=== PATIENT | female | born 1950 | race Caucasian/White ===

== ENCOUNTER 2017-06-29 06:43 | Emergency (ER) | payer MEDICARE, OTHER ==
--- NOTE | 2017-06-29 07:53 | RAD ---
RIGHT HIP 2 VIEWS: Date: 06/29/17 HISTORY: 67-year-old male with history of right hip pain for 2 weeks. FINDINGS: Mild degenerative changes right hip joint. No fracture or dislocation. Minimal vascular calcification s. IMPRESSION: No fracture or dislocation. Mild degenerative change. POS: [facility]
[2017-06-29 08:48] LABS: Bilirubin Negative (Negative); Blood, Urine Negative (Negative); Clarity CLOUDY (Clear); Glucose, Urine (Dipstick) Negative (Negative); Leukocyte Negative (Negative); Nitrite Negative (Negative); Protein, Urine (Dipstick) 100 mg/dL (Neg-Trace); Specific Gravity, Urine 1.014 (1.002-1.036); Urobilinogen 0.2 mg/dL (0.2-1.0)
[2017-06-29 08:50] LABS: Bacteria/HPF 1+ HPF (None Seen); Hyaline Casts/LPF 0-3 HYALINE CAST LPF (0-3 Hyaline); WBC/HPF 0-3 HPF (0-3)
[2017-06-29 09:15] LABS: #Basophils 0.2 thou/uL (0.0-0.2); #Eosinphils 0.3 thou/uL (0.0-0.7); #Lymphocytes 2.9 thou/uL (1.20-3.40); #Monocytes 0.7 thou/uL (0.11-0.59); #Neutrophils 8.1 thou/uL (1.40-6.50); %Basophils 1.7 % (0.0-1.0); %Eosinophils 2.4 % (0.0-10.0); %Lymphocytes 23.4 % (21.0-51.0); %Monocytes 5.7 % (0.0-10.0); %Neutrophils 66.7 % (42.0-75.0); Hemoglobin 13.5 g/dL (14.0-18.0); Mean Corpuscular HGB CONC 33.1 g/dL (32.0-36.0); Mean Corpuscular Hemoglobin 30.7 pg (27.0-31.0); Mean Platelet Volume 7.9 fL (7.4-10.4); Platelet Count 342 thou/uL (130-400); RBC Distribution Width 13.8 % (11.5-14.5); Red Blood Cell (RBC) Count 4.39 mill/uL (4.70-6.10); White Blood Cell (WBC) Count 12.2 thou/uL (4.8-10.8)
[2017-06-29] MEDS ORDERED: hydrALAZINE 20 MG/ML VIAL ONE ×2 (09:32→13:50)
[2017-06-29] MEDS ORDERED: Fentanyl 100 MCG/2 ML VIAL ONE (09:32)
[2017-06-29 09:36] LABS: ALT (SGPT) 13 U/L (8-55); AST (SGOT) 15 U/L (5-34); Albumin 4.3 g/dL (3.4-4.8); Alkaline Phosphatase 92 U/L (40-150); Anion Gap 17 mmol/L (10-20); BUN (Urea Nitrogen) 14 mg/dL (8.4-25.7); Bilirubin, Total 0.3 mg/dL (0.2-1.2); Calc. Creatinine Clearance 0 mL/min (70-130); Calcium 9.9 mg/dL (7.8-10.44); Carbon Dioxide 21 mmol/L (23-31); Chloride 100 mmol/L (98-107); Estimated GFR-MDRD Greater than 90; Glucose 150 mg/dL (80-115); Potassium 3.7 mmol/L (3.5-5.1); Protein, Total 8.3 g/dL (5.8-8.1); Sodium 134 mmol/L (136-145)
--- NOTE | 2017-06-29 10:40 | CT ---
CT ABDOMEN AND PELVIS WITH CONTRAST: Date: 06/29/17 HISTORY: Right-sided abdominal pain and hip pain. COMPARISON: None. FINDINGS: Lung bases are clear. No pericardial effusion. Hepatic steatosis is present. Gallbladder is normal, as well as the adrenal glands. There is a periph eral wedge-shaped area of hypodensity within the spleen, series 2, image 16 and 17. There is extensiv e atherosclerotic plaque of the splenic artery with multifocal severe narrowing. There is occlusion o f the superior mesenteric artery origin for a length of approximately 2.0 cm. There is extensive athe rosclerotic plaque of the superior mesenteric artery. Celiac artery is patent. There is extensive atherosclerotic plaque of the origin in both renal arteries, although there is marlee quate renal enhancement. No evidence of pyelonephritis. There is extensive atherosclerotic plaque of the aorta with multiple ulcerated plaques. 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 The infrarenal aorta measures up to 4.2 c m at this area of aneurysm. Extensive atherosclerotic calcific thrombus along the periphery of the in frarenal aorta. There is extensive atherosclerotic plaque of the iliac arteries with complete occlusi on of the left common iliac artery and external iliac artery. Left lower extremity is fed primarily b y the inferior epigastric artery and deep circumflex iliac artery. There is no free intraperitoneal gas or fluid. Normal proximal small bowel rotation. Appendix is not definitively seen, although there are no secondary signs of acute appendicitis. 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 No lum bar spine compression fracture. IMPRESSION: 1. Severe atherosclerotic disease of the aorta, as well as mesenteric vessels and iliac vessels. The re is complete occlusion of the left common iliac artery and external iliac artery with the left leg being fed primarily by the inferior epigastric and deep circumflex iliac arteries. 2. 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 Patient would benefit from a conventional angiogram. Mesenteric ischemia is likely , although there are no signs on the CT examination to suggest acute ischemic change. 3. Extensive atherosclerotic plaque of the aorta with multiple ulcerative plaques. 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 Nonemergent car diovascular surgical consultation is recommended. 4. No evidence of pyelonephritis. No renal calculi. 5. Hepatic steatosis. POS: [facility]
[2017-06-29 10:55] LABS: INR-International Normal Ratio 0.9; Prothrombin Time 12.3 SEC (12.0-14.7)
[2017-06-29] MEDS ORDERED: HYDROcodone/Acetaminophen 5/325 mg Tablet ONE (13:50)
[2017-06-29] MEDS ORDERED: ISOVUE-370 76%-LOCM 1 ML ONE (14:25)
== END 2017-06-29 14:13 | disposition home or self-care (01) ==
LOC: EDSEX 06:43 → ERS 06:43
DX: M87.9 Osteonecrosis, unspecified (principal); I71.9 Aortic aneurysm of unspecified site, without rupture; I73.9 Peripheral vascular disease, unspecified; I10 Essential (primary) hypertension; Z79.899 Other long term (current) drug therapy
CPT/HCPCS: 36415; 74177; 80053; 81003; 81015; 82274; 83605; 85025; 85610; 85652; 86140; 96374; 96375; 96376; J0360; J3010

== ENCOUNTER 2017-07-27 09:55 | Outpatient (CLI) | payer MEDICARE, OTHER ==
[~2017-07-27 09:55] MED LIST: ISOVUE-370 76%-LOCM 1 ML ONE
== END 2017-07-27 09:56 | disposition home or self-care (01) ==
LOC: BICCT 09:55
PROVIDERS: ATTEND Thoracic Surgery (Cardiothoracic Vascular Surgery)
DX: I65.23 Occlusion and stenosis of bilateral carotid arteries (principal); I77.1 Stricture of artery
CPT/HCPCS: 70498

== ENCOUNTER 2017-09-01 10:21 | Inpatient (IN) | payer MEDICARE, OTHER ==
[2017-09-01 15:25] VITALS: BMI 30.4
[2017-09-02] MEDS ORDERED: Fentanyl 250 MCG/5 ML VIAL ONE (10:43)
[2017-09-02] MEDS ORDERED: Nitroglycerin 50 MG/250 ML BOT 250 ML ONE (10:43)
[2017-09-02] MEDS ORDERED: hydrALAZINE 20 MG/ML VIAL ONE (10:43)
[2017-09-02] MEDS ORDERED: Phenylephrine HCL 10 MG/ML VIAL ONE (10:43)
[2017-09-02] MEDS ORDERED: CEFAZOLIN/Water 2 GM/20 ML SYRINGE ONE (11:00)
[2017-09-02] MEDS ORDERED: Bupivacaine/Epinephrine 0.25% 30 ML VIAL ONE (11:12)
[2017-09-02] MEDS ORDERED: Milrinone 10 MG/10 ML VIAL ONE ×2 (11:12→11:13)
[2017-09-02] MEDS ORDERED: Heparin 5,000 UNITS/ML VIAL ONE (11:12)
[2017-09-02] MEDS ORDERED: Protamine Sulfate 50 MG/5 ML VIAL ONE (12:57)
--- NOTE | 2017-09-02 13:31 | OP ---
DATE OF PROCEDURE: 09/02/2017 PREOPERATIVE DIAGNOSIS: Critical right carotid stenosis. POSTOPERATIVE DIAGNOSIS: Critical right carotid stenosis. PROCEDURE: Right carotid endarterectomy with bovine patch angioplasty. SURGEON: Dr. Tavo Reyes ANESTHESIA: General. ESTIMATED BLOOD LOSS: Less than 100. PROCEDURE IN DETAIL: After adequate anesthesia had been obtained, the patient's right neck was prepp ed and draped after ultrasound guided localization of the carotid bulb. Incision was made. Platysma divided, sternocleidomastoid muscle rotated laterally. Facial vein was ligated and divided. Hypogl ossal nerve was identified and avoided. Common internal and external carotid arteries were mobilized , loop was placed and the patient was given 7500 units of heparin. Clamps were applied, arteriotomy performed through a critically stenotic vessel in which the lumen was not fully identified, but the p laque was very soft and atheromatous plaque. A 12-Beninese shunt was placed with very poor backbleedin g. Following this, endarterectomy was performed. This was particularly atheromatous plaque and did not fill easily from the media adventitia as is typical of the endarterectomy specimen. There was 1 area where the plaque burroughed through the wall posteriorly. The area was thoroughly irrigated mul tiple times. The posterior penetrating ulcer was isolated from the channel with a running double lay er of 7-0 Prolene suture. Following this, a bovine patch was used to close the arteriotomy. Prior t o completing the suture line, the shunt was removed, vessels back flushed, forward flushed and furthe r irrigation was carried out. Flow was then restored up the external carotid artery. Following this , the internal carotid artery flow was restored and heparin was partially reversed with protamine. W ound was irrigated after obtaining good hemostasis, and closed in layers and the patient is to be ade en to the ICU in guarded condition.
[2017-09-02] MEDS ORDERED: Promethazine HCl 25 MG/ML VIAL ONE (13:49)
[2017-09-02] MEDS ORDERED: Ondansetron HCl/PF 4 MG/2 ML Vial IVP PRN ×2 (13:51→16:55)
[2017-09-02] MEDS ORDERED: Promethazine HCl 25 MG/ML VIAL IM PRN ×2 (13:51→16:55)
[2017-09-02] MEDS ORDERED: Promethazine HCl 25 MG/ML VIAL SLOW IVP PRN (13:51)
[2017-09-02] MEDS ORDERED: Ondansetron HCl/PF 4 MG/2 ML Vial ONE (14:40)
[2017-09-02] MEDS ORDERED: DOPamine 400 MG/D5W 250 ML 250 ML ONE (15:01)
[2017-09-02] MEDS ORDERED: Norepinephrine 4 MG/4 ML VIAL ONE (16:00)
[2017-09-02] MEDS ORDERED: Norepinephrine 8 MG/250 ML BAG IVPB PRN (16:07)
[2017-09-02] MEDS ORDERED: Aspirin 325 MG TAB PO SCH (16:15)
[2017-09-02] MEDS ORDERED: Phenylephrine 10 MG/NS 250 ML 250 ML IVPB SCH (16:30)
[2017-09-02] MEDS ORDERED: PROPOFOL 200 MG/20 ML VIAL ONE (16:35)
[2017-09-02] MEDS ORDERED: Heparin 10,000 UNITS/ 10 ML VIAL ONE (16:35)
[2017-09-02] MEDS ORDERED: Dexamethasone 20 MG/5 ML VIAL ONE (16:35)
[2017-09-02] MEDS ORDERED: PHENYLEPHRINE-NS 100 MCG/ML 10 ML SYRINGE ONE (16:35)
[2017-09-02] MEDS ORDERED: Nitroglycerin 0.4 MG TAB (25 Tab Bottle) ONE (16:35)
[2017-09-02] MEDS ORDERED: Glycopyrrolate 0.2 MG/ML 5 ML SYRINGE ONE (16:35)
[2017-09-02] MEDS ORDERED: Lidocaine 1% PF 5 ML VIAL ONE (16:35)
[2017-09-02] MEDS ORDERED: Nitroglycerin 2% Ointment 1 INCH/1 GM Packet ONE ×2 (16:49→16:51)
[2017-09-02] MEDS ORDERED: Mag-Al 1200 mg/1200 mg/30 ML UDCUP PO PRN (16:55)
[2017-09-02] MEDS ORDERED: Sodium Chloride 0.9% 1,000 ML IV SCH (16:55)
[2017-09-02] MEDS ORDERED: niCARdipine HCl 25 MG in Sodium Chloride 0.9% 250 ML 240 ML IVPB PRN (16:55)
[2017-09-02] MEDS ORDERED: Docusate 100 MG CAP PO PRN (16:55)
[2017-09-02] MEDS ORDERED: DOPamine 400 MG/D5W 250 ML 250 ML IVPB PRN (16:55)
[2017-09-02] MEDS ORDERED: Fentanyl 100 MCG/2 ML VIAL SLOW IVP PRN ×2 (16:55)
[2017-09-02] MEDS ORDERED: hydrALAZINE 20 MG/ML VIAL SLOW IVP PRN (16:55)
[2017-09-02] MEDS ORDERED: Ibuprofen 800 MG TAB PO PRN (17:44)
[2017-09-02] MEDS: Ketorolac Tromethamine 30 MG/ML VIAL IVP SCH (17:52)
[2017-09-02] MEDS: CEFAZOLIN/Water 2 GM/20 ML SYRINGE SLOW IVP SCH (20:28)
[2017-09-02] MEDS: Famotidine 20 MG TAB PO SCH (20:29)
[2017-09-02] MEDS: Acetaminophen 325 MG TAB PO PRN (20:29)
[2017-09-02] MEDS ORDERED: Simvastatin 40 MG TAB PO SCH (21:00)
[2017-09-02] MEDS ORDERED: Losartan 25 MG TAB PO SCH (21:00)
[2017-09-03] MEDS: Ketorolac Tromethamine 30 MG/ML VIAL IVP SCH ×2 (00:21→06:11)
[2017-09-03] MEDS: Acetaminophen 325 MG TAB PO PRN (04:15)
[2017-09-03] MEDS: CEFAZOLIN/Water 2 GM/20 ML SYRINGE SLOW IVP SCH (04:15)
--- NOTE | 2017-09-03 07:01 | EKG ---
Test Reason : PREOP Blood Pressure : / mmHG Vent. Rate : 065 BPM Atrial Rate : 065 BPM P-R Int : 166 ms QRS Dur : 132 ms QT Int : 458 ms P-R-T Axes : 079 021 040 degrees QTc Int : 476 ms Sinus rhythm with Premature atrial complexes Right bundle branch block Abnormal ECG When compared with ECG of 10-MAR-2016 09:44, Premature atrial complexes are now Present Right bundle branch block is now Present Confirmed by CIELO GALVAN ([id number]) on 09/03/2017 7:01:17 AM Referred By: ANITA Confirmed By:CIELO GALVAN
--- NOTE | 2017-09-03 07:04 | DIS ---
DATE OF ADMISSION: 09/02/2017 DATE OF DISCHARGE: 09/03/2017 HOSPITAL COURSE: The patient was admitted on 09/02/2017, underwent a right carotid endarterectomy. Her postoperative course was notable only for some chest discomfort in the recovery room while receiv ing dopamine. She had resolution of this pain when the dopamine was stopped. Neurologically, she di d well and will be discharged on 09/03/2017 to resume her home medications. Discharge and follow up instructions have been given.
[2017-09-03 07:06] VITALS: TEMP 98.6
[2017-09-03] MEDS: Famotidine 20 MG TAB PO SCH (07:38)
[2017-09-03 07:39] VITALS: BP 138/78
[2017-09-03] MEDS ORDERED: Amlodipine 5 MG TAB PO SCH (09:00)
[2017-09-03] MEDS ORDERED: Aspirin 325 mg Enteric Coated Tablet PO SCH (09:00)
[2017-09-03] MEDS ORDERED: Hydrochlorothiazide 25 MG TAB PO SCH (09:00)
--- NOTE | 2017-09-04 08:59 | EKG ---
Test Reason : Blood Pressure : / mmHG Vent. Rate : 095 BPM Atrial Rate : 095 BPM P-R Int : 184 ms QRS Dur : 138 ms QT Int : 396 ms P-R-T Axes : 074 064 007 degrees QTc Int : 497 ms Poor data quality, interpretation may be adversely affected Normal sinus rhythm Right bundle branch block Abnormal ECG When compared with ECG of 02-SEP-2017 10:30, Premature atrial complexes are no longer Present ST now depressed in Anterior leads Inverted T waves have replaced nonspecific T wave abnormality in Inferior leads Inverted T waves have replaced nonspecific T wave abnormality in Anterior leads Confirmed by CIELO GALVAN ([id number]) on 09/04/2017 8:59:13 AM Referred By: ANITA Confirmed By:CIELO GALVAN
[2017-09-07] MEDS ORDERED: Ibuprofen 800 MG TAB PO PRN (23:59)
== END 2017-09-03 08:03 | disposition home or self-care (01) | DRG 39 ==
LOC: EDSTATUS 15:00 → SURG A 09-02 09:43 → CCU 09-02 16:59
PROVIDERS: ADMIT Thoracic Surgery (Cardiothoracic Vascular Surgery); ATTEND Thoracic Surgery (Cardiothoracic Vascular Surgery)
PROC: 03CK0ZZ Extirpation of Matter from Right Internal Carotid Artery, Open Approach (ICD-10-PCS; principal; 2017-09-02)
PROC: 03UK0KZ Supplement Right Internal Carotid Artery with Nonautologous Tissue Substitute, Open Approach (ICD-10-PCS; 2017-09-02)
DX: I65.23 Occlusion and stenosis of bilateral carotid arteries (principal); I10 Essential (primary) hypertension; R07.89 Other chest pain; T44.995A Adverse effect of other drug primarily affecting the autonomic nervous system, initial encounter; I70.213 Atherosclerosis of native arteries of extremities with intermittent claudication, bilateral legs; I71.4 Abdominal aortic aneurysm, without rupture; Z87.891 Personal history of nicotine dependence
CPT/HCPCS: 80048; 85027; 93005; 93010; 94640; J0360; J1100; J1265; J1642; J1644; J1885; J2001; J2260; J2370; J2405; J2550; J2704; J2720; J3010; J7620

== ENCOUNTER 2017-09-01 14:54 | Outpatient (CLI) | payer MEDICARE, OTHER ==
[2017-09-01 16:26] LABS: Hemoglobin 12.9 g/dL (12.0-16.0); Mean Corpuscular HGB CONC 33.9 g/dL (32.0-36.0); Mean Corpuscular Hemoglobin 31.8 pg (27.0-31.0); Mean Corpuscular Volume 93.9 fl (81.0-99.0); Mean Platelet Volume 8.3 fL (7.4-10.4); Platelet Count 318 thou/uL (130-400); Red Blood Cell (RBC) Count 4.04 mill/uL (4.20-5.40); White Blood Cell (WBC) Count 11.7 thou/uL (4.8-10.8)
[2017-09-01 16:48] LABS: Anion Gap 16 mmol/L (10-20); BUN (Urea Nitrogen) 17 mg/dL (9.8-20.1); Calc. Creatinine Clearance 0 mL/min (70-130); Calcium 10.1 mg/dL (7.8-10.44); Carbon Dioxide 25 mmol/L (23-31); Chloride 100 mmol/L (98-107); Estimated GFR-MDRD 58; Glucose 107 mg/dL (80-115); Potassium 4.1 mmol/L (3.5-5.1); Sodium 137 mmol/L (136-145)
== END 2017-09-01 14:55 | disposition home or self-care (01) ==
LOC: LABBT 14:54
PROVIDERS: ATTEND Thoracic Surgery (Cardiothoracic Vascular Surgery)
DX: Z01.812 Encounter for preprocedural laboratory examination (principal); I65.29 Occlusion and stenosis of unspecified carotid artery
CPT/HCPCS: 80048; 85027

== ENCOUNTER 2021-12-02 10:44 | Outpatient (CLI) | payer MEDICARE ==
[~2021-12-02 10:44] MED LIST changes: -ISOVUE-370 76%-LOCM 1 ML ONE; +Iopamidol-370 76% 500 ML 1 ML ONE
== END 2021-12-02 10:45 | disposition home or self-care (01) ==
LOC: BICCT 10:44
PROVIDERS: ATTEND Thoracic Surgery (Cardiothoracic Vascular Surgery)
DX: I71.4 Abdominal aortic aneurysm, without rupture (principal); E11.51 Type 2 diabetes mellitus with diabetic peripheral angiopathy without gangrene; I70.213 Atherosclerosis of native arteries of extremities with intermittent claudication, bilateral legs; I65.23 Occlusion and stenosis of bilateral carotid arteries; I10 Essential (primary) hypertension; D73.5 Infarction of spleen; K55.069 Acute infarction of intestine, part and extent unspecified; I74.5 Embolism and thrombosis of iliac artery; M87.9 Osteonecrosis, unspecified
CPT/HCPCS: 75635; 82565; Q9967

== ENCOUNTER 2022-04-02 01:36 | Inpatient (IN) | payer MEDICARE ==
[2022-04-02] MEDS ORDERED: Aspirin Chewable 81 MG TAB ONE (02:10)
[2022-04-02] MEDS ORDERED: Nitroglycerin 0.4 MG TAB 1 EACH ONE (02:12)
[2022-04-02 02:15] LABS: #Eosinphils 0.1 thou/uL (0.0-0.7); #Lymphocytes 2.6 thou/uL (1.20-3.40); #Monocytes 0.7 thou/uL (0.11-0.59); #Neutrophils 9.4 thou/uL (1.40-6.50); %Basophils 0.2 % (0.0-1.0); %Eosinophils 0.6 % (0.0-10.0); %Lymphocytes 20.6 % (21.0-51.0); %Monocytes 5.4 % (0.0-10.0); %Neutrophils 73.2 % (42.0-75.0); Hemoglobin 8.1 g/dL (12.0-16.0); Mean Corpuscular HGB CONC 32.9 g/dL (32.0-36.0); Mean Corpuscular Hemoglobin 29.8 pg (27.0-31.0); Mean Corpuscular Volume 90.6 fl (78.0-98.0); Mean Platelet Volume 8.8 fL (7.4-10.4); Platelet Count 374 10x3/uL (130-400); RBC Distribution Width 15.1 % (11.5-14.5); Red Blood Cell (RBC) Count 2.72 mill/uL (4.20-5.40); White Blood Cell (WBC) Count 12.8 10x3/uL (4.8-10.8)
[2022-04-02] MEDS ORDERED: Enoxaparin Sodium 60 MG/0.6 ML SYRINGE ONE (02:21)
[2022-04-02 02:28] LABS: ALT (SGPT) 13 U/L (8-55); AST (SGOT) 20 U/L (5-34); Albumin 3.8 g/dL (3.4-4.8); Alkaline Phosphatase 104 U/L (40-110); Anion Gap 17 mmol/L (10-20); BUN (Urea Nitrogen) 22 mg/dL (9.8-20.1); Bilirubin, Total 0.4 mg/dL (0.2-1.2); Calc. Creatinine Clearance 0 mL/min (70-130); Carbon Dioxide 20 mmol/L (23-31); Chloride 98 mmol/L (98-107); Estimated GFR 51; Globulin 3.3 g/dL (2.4-3.5); Glucose 220 mg/dL (83-110); Potassium 4.9 mmol/L (3.5-5.1); Protein, Total 7.1 g/dL (5.8-8.1); Sodium 130 mmol/L (136-145)
[2022-04-02 02:43] LABS: Prothrombin Time 13.2 sec (12.0-14.7)
[2022-04-02 02:44] LABS: PTT 29.4 sec (22.9-36.1)
[2022-04-02 02:49] LABS: Lipase 78 U/L (8-78); Magnesium 2.1 mg/dL (1.6-2.6)
[2022-04-02 02:53] LABS: Bacteria/HPF None Seen HPF (None Seen); Bilirubin Negative (Negative); Blood, Urine 3+ (Negative); Clarity Turbid (Clear); Glucose, Urine (Dipstick) 300 mg/dL (Negative); Ketone, Urine Negative (Negative); Leukocyte 75 Leu/uL (Negative); Nitrite Negative (Negative); Protein, Urine (Dipstick) 70 mg/dL (Neg-Trace); RBC/HPF Greater than 50 HPF (0-3); Specific Gravity, Urine 1.018 (1.002-1.036); Squamous Epithelial None Seen HPF (0-3); Urobilinogen Normal mg/dL (Less than 2); WBC/HPF 21-50 HPF (0-3)
[2022-04-02] MEDS ORDERED: Furosemide 40 MG/4 ML VIAL ONE (03:40)
[2022-04-02 04:07] LABS: CKMB 5.2 ng/mL (0-6.6)
[2022-04-02] MEDS ORDERED: Morphine 4 MG/ML VIAL ONE (04:26)
[2022-04-02] MEDS ORDERED: Acetaminophen 650 MG Suppository PR PRN (04:58)
[2022-04-02] MEDS ORDERED: HumaLOG 300 UNITS/3 ML VIAL SC PRN (05:07)
[2022-04-02] MEDS ORDERED: Dextrose 50% Abboject 50 ML SYRINGE SLOW IVP PRN (05:07)
[2022-04-02] MEDS ORDERED: Dextrose 5% in Water 1,000 ML IV PRN (05:07)
[2022-04-02] MEDS ORDERED: Electrolyte Replacement Protocol 1 EACH FS PRN (05:15)
[2022-04-02 05:23] LABS: Troponin I 0.718 ng/mL (< 0.028)
[2022-04-02] MEDS ORDERED: hydrALAZINE 20 MG/ML VIAL SLOW IVP PRN (06:10)
[2022-04-02 08:14] LABS: Iron 217 ug/dL (50-170); Iron Binding Capacity, Total 346 mcg/dL (265-497)
[2022-04-02 08:31] LABS: Troponin I 0.825 ng/mL (< 0.028)
[2022-04-02] MEDS ORDERED: Enoxaparin Sodium 40 MG/0.4 ML SYRINGE SC SCH (09:00)
[2022-04-02] MEDS ORDERED: Iopamidol 370 76% 100 ML VIAL ONE (10:01)
[2022-04-02] MEDS ORDERED: Aspirin 81 mg Enteric Coated Tablet PO SCH (10:15)
[2022-04-02] MEDS ORDERED: Clopidogrel Bisulfate 75 MG TAB PO SCH (11:30)
[2022-04-02] MEDS ORDERED: Tamsulosin HCl 0.4 MG CAP PO SCH (11:30)
[2022-04-02] MEDS ORDERED: glipiZIDE 10 MG TAB PO SCH (11:30)
[2022-04-02] MEDS: Furosemide 40 MG/4 ML VIAL SLOW IVP SCH (11:34)
[2022-04-02] MEDS: oxyCODONE/Acetaminophen 5 mg/325 mg Tablet PO PRN (11:35)
[2022-04-02] MEDS: tiZANidine HCl 4 MG TAB PO PRN (13:54)
[2022-04-02] MEDS: Gabapentin 300 MG CAP PO SCH ×2 (13:55→21:10)
[2022-04-02] MEDS: Propranolol 10 MG TAB PO SCH ×2 (13:55→21:10)
[2022-04-02] MEDS ORDERED: DOPamine 400 MG/D5W 250 ML 250 ML ONE (15:37)
[2022-04-02] MEDS ORDERED: Atropine Sulfate 1 mg/10 ml Syringe ONE ×2 (15:42→22:36)
[2022-04-02 15:58] LABS: Hemoglobin 6.3 g/dL (12.0-16.0); Mean Corpuscular HGB CONC 33.3 g/dL (32.0-36.0); Mean Corpuscular Volume 89.9 fl (78.0-98.0); Mean Platelet Volume 7.8 fL (7.4-10.4); Platelet Count 292 10x3/uL (130-400); RBC Distribution Width 14.7 % (11.5-14.5); Red Blood Cell (RBC) Count 2.09 mill/uL (4.20-5.40)
[2022-04-02] MEDS ORDERED: Sodium Chloride 0.9% 500 ML IV SCH (16:15)
[2022-04-02] MEDS ORDERED: DOPamine 400 MG/D5W 250 ML 250 ML IVPB SCH (16:15)
[2022-04-02 16:27] LABS: White Blood Cell (WBC) Count 10.9 10x3/uL (4.8-10.8)
[2022-04-02 16:28] LABS: Anisocytosis SLIGHT = 6-15 cells (100X) (0-5/hpf); Band 1 % (5-11); Eosinophils 1 % (0-10); Lymphocytes 20 % (21-51); MDiff Complete? YES; Monocytes 1 % (0-10); Neutrophil 77 % (42-75); Nucleated RBC 2 % (0); Platelet Morphology Comment Appears Adequate; Polychromasia MODERATE = 3-4 cells (100X) (0-2/hpf)
[2022-04-02] MEDS ORDERED: Furosemide 20 MG/2 ML VIAL SLOW IVP SCH ×2 (18:00→23:00)
[2022-04-02] MEDS ORDERED: Enoxaparin Sodium 60 MG/0.6 ML SYRINGE SC SCH ×3 (21:00)
[2022-04-02] MEDS: Sodium Chloride 1 GM TAB PO SCH (21:10)
[2022-04-02] MEDS: Pantoprazole 40 MG VIAL IVP SCH (21:10)
[2022-04-02] MEDS: Simvastatin 10 MG TAB PO SCH (21:11)
[2022-04-02] MEDS ORDERED: NOREPINEPHRINE 8 MG/250 ML-D5W 250 ML ONE (22:44)
[2022-04-02] MEDS ORDERED: NOREPINEPHRINE 8 MG/250 ML-D5W 250 ML IVPB SCH (22:45)
[2022-04-02] MEDS ORDERED: Atropine Sulfate 1 mg/10 ml Syringe IVP SCH (23:00)
[2022-04-02 23:14] LABS: Actual Bicarbonate (HCO3a) 24.3 mEq/L (22-28); CO2 Tension 38.1 mmHg (35.0-45.0); Calcium, Ionized (arterial) 1.16 mmol/L (1.12-1.30); Carboxyhemoglobin (COHb) 0.9 gm% (0.0-3.0); Hemoglobin (Hb) 10.8 g/dL (12.0-16.0); Potassium - ABG Lab 3.47 mmol/L (3.70-5.30); pH, Arterial 7.42 (7.35-7.45)
[2022-04-02 23:14] LABS: #Basophils 0.1 thou/uL (0.0-0.2); #Eosinphils 0.5 thou/uL (0.0-0.7); #Lymphocytes 2.8 thou/uL (1.20-3.40); #Monocytes 1.3 thou/uL (0.11-0.59); #Neutrophils 11.3 thou/uL (1.40-6.50); %Basophils 0.4 % (0.0-1.0); %Lymphocytes 17.6 % (21.0-51.0); %Monocytes 7.9 % (0.0-10.0); %Neutrophils 71.1 % (42.0-75.0); Hemoglobin 10.6 g/dL (12.0-16.0); Mean Corpuscular HGB CONC 33.7 g/dL (32.0-36.0); Mean Corpuscular Hemoglobin 29.8 pg (27.0-31.0); Mean Corpuscular Volume 88.6 fl (78.0-98.0); Mean Platelet Volume 8.1 fL (7.4-10.4); Platelet Count 387 10x3/uL (130-400); RBC Distribution Width 14.8 % (11.5-14.5); Red Blood Cell (RBC) Count 3.57 mill/uL (4.20-5.40); White Blood Cell (WBC) Count 15.9 10x3/uL (4.8-10.8)
[2022-04-02 23:21] LABS: Lactic Acid 1.6 mmol/L (0.5-2.2)
[2022-04-02 23:24] LABS: Anion Gap 15 mmol/L (10-20); BUN (Urea Nitrogen) 19 mg/dL (9.8-20.1); Calc. Creatinine Clearance 40 mL/min (70-130); Calcium 9.5 mg/dL (7.8-10.44); Carbon Dioxide 26 mmol/L (23-31); Chloride 98 mmol/L (98-107); Estimated GFR 43; Glucose 181 mg/dL (83-110); Potassium 3.6 mmol/L (3.5-5.1); Sodium 135 mmol/L (136-145)
[2022-04-02 23:28] LABS: O2 Tension (PaO2), arterial 51.9 mmHg (> 70.0); Puncture Site LRA
[2022-04-02 23:29] LABS: ALV-art Gradient 100.115 mmHg (0-20)
[2022-04-03] MEDS: cefTRIAXone\\ROCEPHIN 1 GM in Sodium Chloride 0.9% 100 ML IVPB SCH (00:10)
[2022-04-03] MEDS ORDERED: DOPamine 400 MG/D5W 250 ML 250 ML IVPB SCH (01:15)
[2022-04-03 05:05] LABS: #Basophils 0.1 thou/uL (0.0-0.2); #Eosinphils 0.4 thou/uL (0.0-0.7); #Lymphocytes 2.6 thou/uL (1.20-3.40); #Monocytes 0.9 thou/uL (0.11-0.59); #Neutrophils 9.4 thou/uL (1.40-6.50); %Basophils 0.6 % (0.0-1.0); %Eosinophils 3.2 % (0.0-10.0); %Lymphocytes 19.4 % (21.0-51.0); %Monocytes 6.5 % (0.0-10.0); %Neutrophils 70.3 % (42.0-75.0); Hemoglobin 11.5 g/dL (12.0-16.0); Mean Corpuscular HGB CONC 33.5 g/dL (32.0-36.0); Mean Corpuscular Hemoglobin 29.8 pg (27.0-31.0); Mean Corpuscular Volume 88.9 fl (78.0-98.0); Mean Platelet Volume 8.3 fL (7.4-10.4); Platelet Count 365 10x3/uL (130-400); RBC Distribution Width 14.2 % (11.5-14.5); Red Blood Cell (RBC) Count 3.87 mill/uL (4.20-5.40); White Blood Cell (WBC) Count 13.4 10x3/uL (4.8-10.8)
[2022-04-03 05:15] LABS: Anion Gap 14 mmol/L (10-20); BUN (Urea Nitrogen) 18 mg/dL (9.8-20.1); Calc. Creatinine Clearance 42 mL/min (70-130); Calcium 9.3 mg/dL (7.8-10.44); Carbon Dioxide 28 mmol/L (23-31); Chloride 98 mmol/L (98-107); Estimated GFR 47; Glucose 182 mg/dL (83-110); Potassium 3.4 mmol/L (3.5-5.1); Sodium 137 mmol/L (136-145)
[2022-04-03] MEDS: Potassium Chloride 20 MEQ in Premix Bag 1 BAG IVPB SCH ×2 (05:35→07:50)
[2022-04-03] MEDS: HumaLOG 300 UNITS/3 ML VIAL SC PRN ×2 (06:22→16:33)
[2022-04-03] MEDS: Ferrous Sulfate 325 MG TAB PO SCH (07:58)
[2022-04-03] MEDS: Aspirin 81 mg Enteric Coated Tablet PO SCH (08:03)
[2022-04-03] MEDS: oxyCODONE/Acetaminophen 5 mg/325 mg Tablet PO PRN ×2 (08:39→21:17)
[2022-04-03] MEDS: glipiZIDE 10 MG TAB PO SCH (08:40)
[2022-04-03] MEDS: Gabapentin 300 MG CAP PO SCH ×3 (08:40→21:12)
[2022-04-03] MEDS: Clopidogrel Bisulfate 75 MG TAB PO SCH (08:40)
[2022-04-03] MEDS: Sodium Chloride 1 GM TAB PO SCH ×2 (08:40→21:11)
[2022-04-03] MEDS: Tamsulosin HCl 0.4 MG CAP PO SCH (08:40)
[2022-04-03] MEDS: Propranolol 10 MG TAB PO SCH (08:41)
[2022-04-03] MEDS: Furosemide 40 MG/4 ML VIAL SLOW IVP SCH (08:41)
[2022-04-03] MEDS: Pantoprazole 40 MG VIAL IVP SCH (08:41)
[2022-04-03] MEDS ORDERED: Aspirin 81 mg Enteric Coated Tablet PO SCH (09:00)
[2022-04-03 12:23] LABS: Potassium 4.1 mmol/L (3.5-5.1)
[2022-04-03] MEDS: tiZANidine HCl 4 MG TAB PO PRN (13:34)
[2022-04-03 16:16] LABS: Hemoglobin 10.7 g/dL (12.0-16.0); Platelet Count 358 10x3/uL (130-400)
[2022-04-03] MEDS: Simvastatin 10 MG TAB PO SCH (21:12)
[2022-04-04] MEDS: cefTRIAXone\\ROCEPHIN 1 GM in Sodium Chloride 0.9% 100 ML IVPB SCH ×2 (00:16→23:11)
[2022-04-04] MEDS ORDERED: NOREPINEPHRINE 8 MG/250 ML-D5W 250 ML IVPB SCH (01:00)
[2022-04-04] MEDS: Amiodarone 450 MG, Admixture Fee 1 EACH in Dextrose 5% in Water 250 ML IVPB SCH ×2 (01:00→08:17)
[2022-04-04 01:17] LABS: ALT (SGPT) 12 U/L (8-55); AST (SGOT) 17 U/L (5-34); Albumin 3.3 g/dL (3.4-4.8); Alkaline Phosphatase 93 U/L (40-110); Anion Gap 13 mmol/L (10-20); BUN (Urea Nitrogen) 21 mg/dL (9.8-20.1); Bilirubin, Total 0.4 mg/dL (0.2-1.2); Calc. Creatinine Clearance 42 mL/min (70-130); Calcium 8.8 mg/dL (7.8-10.44); Carbon Dioxide 27 mmol/L (23-31); Chloride 99 mmol/L (98-107); Estimated GFR 46; Globulin 3.3 g/dL (2.4-3.5); Glucose 135 mg/dL (83-110); Magnesium 1.9 mg/dL (1.6-2.6); Potassium 3.8 mmol/L (3.5-5.1); Protein, Total 6.6 g/dL (5.8-8.1); Sodium 135 mmol/L (136-145)
[2022-04-04 01:18] LABS: #Basophils 0.1 thou/uL (0.0-0.2); #Eosinphils 0.5 thou/uL (0.0-0.7); #Lymphocytes 2.2 thou/uL (1.20-3.40); #Monocytes 0.6 thou/uL (0.11-0.59); #Neutrophils 9.7 thou/uL (1.40-6.50); %Basophils 0.4 % (0.0-1.0); %Eosinophils 3.8 % (0.0-10.0); %Lymphocytes 16.7 % (21.0-51.0); %Monocytes 4.2 % (0.0-10.0); %Neutrophils 74.8 % (42.0-75.0); Hemoglobin 10.7 g/dL (12.0-16.0); Mean Corpuscular HGB CONC 33.8 g/dL (32.0-36.0); Mean Corpuscular Hemoglobin 30.4 pg (27.0-31.0); Mean Corpuscular Volume 89.7 fl (78.0-98.0); Mean Platelet Volume 8.3 fL (7.4-10.4); Platelet Count 352 10x3/uL (130-400); Red Blood Cell (RBC) Count 3.53 mill/uL (4.20-5.40); White Blood Cell (WBC) Count 12.9 10x3/uL (4.8-10.8)
[2022-04-04 01:26] LABS: Troponin I 1.394 ng/mL (< 0.028)
[2022-04-04] MEDS ORDERED: Magnesium 2 GM/50 ML(in water) 2 GM in Premix Bag 1 BAG IVPB SCH (01:45)
[2022-04-04 04:38] LABS: #Eosinphils 0.6 thou/uL (0.0-0.7); #Lymphocytes 2.1 thou/uL (1.20-3.40); #Monocytes 0.6 thou/uL (0.11-0.59); #Neutrophils 15.5 thou/uL (1.40-6.50); %Basophils 0.2 % (0.0-1.0); %Eosinophils 3.2 % (0.0-10.0); %Lymphocytes 11.1 % (21.0-51.0); %Monocytes 3.3 % (0.0-10.0); %Neutrophils 82.2 % (42.0-75.0); Hemoglobin 11.4 g/dL (12.0-16.0); Mean Corpuscular HGB CONC 34.4 g/dL (32.0-36.0); Mean Platelet Volume 8.1 fL (7.4-10.4); Platelet Count 382 10x3/uL (130-400); RBC Distribution Width 14.7 % (11.5-14.5); Red Blood Cell (RBC) Count 3.67 mill/uL (4.20-5.40); White Blood Cell (WBC) Count 18.9 10x3/uL (4.8-10.8)
[2022-04-04 04:48] LABS: Phosphorus 2.9 mg/dL (2.3-4.7)
[2022-04-04 04:52] LABS: Anion Gap 15 mmol/L (10-20); BUN (Urea Nitrogen) 20 mg/dL (9.8-20.1); Calc. Creatinine Clearance 42 mL/min (70-130); Calcium 8.7 mg/dL (7.8-10.44); Carbon Dioxide 23 mmol/L (23-31); Chloride 99 mmol/L (98-107); Estimated GFR 45; Glucose 173 mg/dL (83-110); Magnesium 2.6 mg/dL (1.6-2.6); Potassium 4.4 mmol/L (3.5-5.1); Sodium 133 mmol/L (136-145)
[2022-04-04 05:02] LABS: Critical Call Chem Troponin I RESULT DECREASING; Troponin I 1.188 ng/mL (< 0.028)
[2022-04-04] MEDS: HumaLOG 300 UNITS/3 ML VIAL SC PRN (06:12)
[2022-04-04] MEDS: oxyCODONE/Acetaminophen 5 mg/325 mg Tablet PO PRN ×4 (06:21→23:06)
[2022-04-04] MEDS: Gabapentin 300 MG CAP PO SCH ×3 (08:16→21:10)
[2022-04-04] MEDS: Sodium Chloride 1 GM TAB PO SCH ×2 (08:16→21:10)
[2022-04-04] MEDS: Clopidogrel Bisulfate 75 MG TAB PO SCH (08:16)
[2022-04-04] MEDS: Aspirin 81 mg Enteric Coated Tablet PO SCH (08:16)
[2022-04-04] MEDS: Ferrous Sulfate 325 MG TAB PO SCH (08:16)
[2022-04-04] MEDS: glipiZIDE 10 MG TAB PO SCH (08:16)
[2022-04-04] MEDS: Furosemide 40 MG/4 ML VIAL SLOW IVP SCH (08:17)
[2022-04-04] MEDS: Tamsulosin HCl 0.4 MG CAP PO SCH (08:17)
[2022-04-04] MEDS: Acetaminophen 325 MG TAB PO PRN (08:25)
[2022-04-04] MEDS: Simvastatin 10 MG TAB PO SCH (21:10)
[2022-04-05] MEDS: Amiodarone 450 MG, Admixture Fee 1 EACH in Dextrose 5% in Water 250 ML IVPB SCH ×2 (00:47→15:01)
[2022-04-05 04:03] LABS: #Basophils 0.1 thou/uL (0.0-0.2); #Eosinphils 0.6 thou/uL (0.0-0.7); #Lymphocytes 2.1 thou/uL (1.20-3.40); #Monocytes 0.6 thou/uL (0.11-0.59); #Neutrophils 7.1 thou/uL (1.40-6.50); %Basophils 0.6 % (0.0-1.0); %Lymphocytes 19.7 % (21.0-51.0); %Monocytes 5.7 % (0.0-10.0); Hemoglobin 10.4 g/dL (12.0-16.0); Mean Corpuscular HGB CONC 32.7 g/dL (32.0-36.0); Mean Corpuscular Hemoglobin 29.4 pg (27.0-31.0); Platelet Count 351 10x3/uL (130-400); RBC Distribution Width 14.9 % (11.5-14.5); Red Blood Cell (RBC) Count 3.52 mill/uL (4.20-5.40); White Blood Cell (WBC) Count 10.4 10x3/uL (4.8-10.8)
[2022-04-05 04:25] LABS: Anion Gap 13 mmol/L (10-20); BUN (Urea Nitrogen) 18 mg/dL (9.8-20.1); Calc. Creatinine Clearance 49 mL/min (70-130); Calcium 8.8 mg/dL (7.8-10.44); Carbon Dioxide 26 mmol/L (23-31); Chloride 98 mmol/L (98-107); Estimated GFR 52; Glucose 137 mg/dL (83-110); Potassium 3.7 mmol/L (3.5-5.1); Sodium 133 mmol/L (136-145)
[2022-04-05] MEDS: oxyCODONE/Acetaminophen 5 mg/325 mg Tablet PO PRN ×3 (06:48→21:09)
[2022-04-05] MEDS: Sodium Chloride 1 GM TAB PO SCH ×2 (09:01→21:12)
[2022-04-05] MEDS: Gabapentin 300 MG CAP PO SCH ×3 (09:02→21:11)
[2022-04-05] MEDS: Ferrous Sulfate 325 MG TAB PO SCH (09:02)
[2022-04-05] MEDS: Furosemide 40 MG/4 ML VIAL SLOW IVP SCH (09:02)
[2022-04-05] MEDS: Clopidogrel Bisulfate 75 MG TAB PO SCH (09:02)
[2022-04-05] MEDS: Aspirin 81 mg Enteric Coated Tablet PO SCH (09:02)
[2022-04-05] MEDS: Tamsulosin HCl 0.4 MG CAP PO SCH (09:02)
[2022-04-05] MEDS: glipiZIDE 10 MG TAB PO SCH (09:02)
[2022-04-05] MEDS ORDERED: Labetalol HCl 100 MG/20 ML VIAL SLOW IVP PRN (09:50)
[2022-04-05] MEDS ORDERED: hydrALAZINE 20 MG/ML VIAL SLOW IVP PRN (10:21)
[2022-04-05] MEDS: HumaLOG 300 UNITS/3 ML VIAL SC PRN (11:19)
[2022-04-05] MEDS ORDERED: Communication Order-Pharmacy FS PRN (13:30)
[2022-04-05] MEDS: Simvastatin 10 MG TAB PO SCH (21:16)
[2022-04-06] MEDS: cefTRIAXone\\ROCEPHIN 1 GM in Sodium Chloride 0.9% 100 ML IVPB SCH ×2 (00:20→23:54)
[2022-04-06] MEDS: oxyCODONE/Acetaminophen 5 mg/325 mg Tablet PO PRN ×4 (01:10→20:51)
[2022-04-06 05:23] LABS: #Basophils 0.1 thou/uL (0.0-0.2); #Eosinphils 0.6 thou/uL (0.0-0.7); #Lymphocytes 2.1 thou/uL (1.20-3.40); #Monocytes 0.8 thou/uL (0.11-0.59); #Neutrophils 8.1 thou/uL (1.40-6.50); %Basophils 0.5 % (0.0-1.0); %Lymphocytes 17.7 % (21.0-51.0); %Neutrophils 69.7 % (42.0-75.0); Hemoglobin 10.7 g/dL (12.0-16.0); Mean Corpuscular HGB CONC 32.6 g/dL (32.0-36.0); Mean Corpuscular Hemoglobin 30.1 pg (27.0-31.0); Mean Corpuscular Volume 92.3 fl (78.0-98.0); Mean Platelet Volume 7.8 fL (7.4-10.4); Platelet Count 382 10x3/uL (130-400); RBC Distribution Width 15.3 % (11.5-14.5); Red Blood Cell (RBC) Count 3.57 mill/uL (4.20-5.40); White Blood Cell (WBC) Count 11.6 10x3/uL (4.8-10.8)
[2022-04-06 05:44] LABS: Phosphorus 2.9 mg/dL (2.3-4.7)
[2022-04-06 05:48] LABS: Anion Gap 13 mmol/L (10-20); BUN (Urea Nitrogen) 18 mg/dL (9.8-20.1); Calc. Creatinine Clearance 47 mL/min (70-130); Carbon Dioxide 26 mmol/L (23-31); Chloride 98 mmol/L (98-107); Estimated GFR 51; Glucose 136 mg/dL (83-110); Potassium 4.2 mmol/L (3.5-5.1); Sodium 133 mmol/L (136-145)
[2022-04-06] MEDS ORDERED: Sodium Chloride 0.9% 1,000 ML IV SCH (06:00)
[2022-04-06] MEDS ORDERED: Magnesium 2 GM/50 ML(in water) 2 GM in Premix Bag 1 BAG IVPB SCH (06:30)
[2022-04-06] MEDS: FENTANYL 50 MCG/ML 1 ML VIAL SLOW IVP PRN ×2 (07:00→23:54)
[2022-04-06] MEDS ORDERED: Fentanyl CADD 0 ML ONE (07:43)
[2022-04-06] MEDS: Ferrous Sulfate 325 MG TAB PO SCH (08:57)
[2022-04-06] MEDS: Sodium Chloride 1 GM TAB PO SCH ×2 (09:04→20:53)
[2022-04-06] MEDS: Gabapentin 300 MG CAP PO SCH ×3 (09:04→20:52)
[2022-04-06] MEDS: Clopidogrel Bisulfate 75 MG TAB PO SCH (09:04)
[2022-04-06] MEDS: Aspirin 81 mg Enteric Coated Tablet PO SCH (09:04)
[2022-04-06] MEDS: Tamsulosin HCl 0.4 MG CAP PO SCH (09:05)
[2022-04-06] MEDS: Furosemide 40 MG/4 ML VIAL SLOW IVP SCH (09:08)
[2022-04-06] MEDS: Sodium Chloride 0.9% 1,000 ML IV SCH (14:12)
[2022-04-06] MEDS: Amiodarone 200 MG TAB PO SCH ×2 (14:22→20:54)
[2022-04-06] MEDS: Amiodarone 450 MG, Admixture Fee 1 EACH in Dextrose 5% in Water 250 ML IVPB SCH (14:23)
[2022-04-06] MEDS ORDERED: Polyethylene Glycol 3350 17 GM Packet PO PRN (20:03)
[2022-04-06] MEDS: Senokot S 8.6-50 MG TAB PO SCH (20:52)
[2022-04-06] MEDS: Lisinopril 5 MG TAB PO SCH (20:53)
[2022-04-06] MEDS: Simvastatin 10 MG TAB PO SCH (20:54)
[2022-04-07] MEDS: Amiodarone 450 MG, Admixture Fee 1 EACH in Dextrose 5% in Water 250 ML IVPB SCH (00:28)
[2022-04-07] MEDS: Sodium Chloride 0.9% 1,000 ML IV SCH ×3 (02:25→21:29)
[2022-04-07 03:39] LABS: #Basophils 0.1 thou/uL (0.0-0.2); #Eosinphils 0.7 thou/uL (0.0-0.7); #Lymphocytes 1.8 thou/uL (1.20-3.40); #Monocytes 0.8 thou/uL (0.11-0.59); #Neutrophils 8.7 thou/uL (1.40-6.50); %Basophils 0.5 % (0.0-1.0); %Eosinophils 5.8 % (0.0-10.0); %Lymphocytes 14.7 % (21.0-51.0); %Monocytes 6.8 % (0.0-10.0); %Neutrophils 72.2 % (42.0-75.0); Hemoglobin 10.7 g/dL (12.0-16.0); Mean Corpuscular HGB CONC 31.9 g/dL (32.0-36.0); Mean Corpuscular Hemoglobin 29.7 pg (27.0-31.0); Mean Platelet Volume 7.6 fL (7.4-10.4); Platelet Count 387 10x3/uL (130-400); RBC Distribution Width 15.3 % (11.5-14.5); Red Blood Cell (RBC) Count 3.59 mill/uL (4.20-5.40); White Blood Cell (WBC) Count 12.1 10x3/uL (4.8-10.8)
[2022-04-07 03:55] LABS: Phosphorus 2.8 mg/dL (2.3-4.7)
[2022-04-07 03:57] LABS: Sodium 133 mmol/L (136-145)
[2022-04-07 03:58] LABS: Anion Gap 13 mmol/L (10-20); BUN (Urea Nitrogen) 16 mg/dL (9.8-20.1); Calc. Creatinine Clearance 48 mL/min (70-130); Carbon Dioxide 26 mmol/L (23-31); Chloride 98 mmol/L (98-107); Estimated GFR 53; Glucose 164 mg/dL (83-110); Magnesium 2.2 mg/dL (1.6-2.6); Potassium 4.1 mmol/L (3.5-5.1)
[2022-04-07] MEDS: oxyCODONE/Acetaminophen 5 mg/325 mg Tablet PO PRN ×4 (04:25→21:28)
[2022-04-07] MEDS ORDERED: Furosemide 20 MG/2 ML VIAL SLOW IVP SCH (09:45)
[2022-04-07] MEDS: Amiodarone 200 MG TAB PO SCH ×4 (09:45→23:37)
[2022-04-07] MEDS: Senokot S 8.6-50 MG TAB PO SCH ×3 (09:45→23:14)
[2022-04-07] MEDS: Sodium Chloride 1 GM TAB PO SCH ×3 (09:46→23:39)
[2022-04-07] MEDS: Ferrous Sulfate 325 MG TAB PO SCH (09:46)
[2022-04-07] MEDS: Gabapentin 300 MG CAP PO SCH ×4 (09:46→23:37)
[2022-04-07] MEDS: Lisinopril 5 MG TAB PO SCH ×4 (09:46→23:38)
[2022-04-07] MEDS: Tamsulosin HCl 0.4 MG CAP PO SCH (09:46)
[2022-04-07] MEDS: Aspirin 81 mg Enteric Coated Tablet PO SCH (09:46)
[2022-04-07] MEDS: Clopidogrel Bisulfate 75 MG TAB PO SCH (09:46)
[2022-04-07] MEDS: Furosemide 40 MG/4 ML VIAL SLOW IVP SCH (10:25)
[2022-04-07] MEDS: Simvastatin 10 MG TAB PO SCH ×2 (21:26→23:39)
[2022-04-07] MEDS: Ondansetron PF 4 MG/2 ML Vial IVP PRN (21:39)
[2022-04-07] MEDS: cefTRIAXone\\ROCEPHIN 1 GM in Sodium Chloride 0.9% 100 ML IVPB SCH (23:40)
[2022-04-08 04:20] LABS: Anion Gap 12 mmol/L (10-20); BUN (Urea Nitrogen) 24 mg/dL (9.8-20.1); Calc. Creatinine Clearance 37 mL/min (70-130); Carbon Dioxide 25 mmol/L (23-31); Chloride 95 mmol/L (98-107); Estimated GFR 39; Glucose 163 mg/dL (83-110); Potassium 4.3 mmol/L (3.5-5.1); Sodium 128 mmol/L (136-145)
[2022-04-08] MEDS: Sodium Chloride 0.9% 1,000 ML IV SCH (04:59)
[2022-04-08] MEDS: Ondansetron PF 4 MG/2 ML Vial IVP PRN (06:07)
[2022-04-08] MEDS: oxyCODONE/Acetaminophen 5 mg/325 mg Tablet PO PRN ×3 (06:56→20:26)
[2022-04-08] MEDS ORDERED: Furosemide 20 MG/2 ML VIAL SLOW IVP SCH (09:00)
[2022-04-08] MEDS: Tamsulosin HCl 0.4 MG CAP PO SCH (09:07)
[2022-04-08] MEDS: Senokot S 8.6-50 MG TAB PO SCH ×2 (09:07→20:26)
[2022-04-08] MEDS: Ferrous Sulfate 325 MG TAB PO SCH (09:07)
[2022-04-08] MEDS: Aspirin 81 mg Enteric Coated Tablet PO SCH (09:07)
[2022-04-08] MEDS: Clopidogrel Bisulfate 75 MG TAB PO SCH (09:07)
[2022-04-08] MEDS: Gabapentin 300 MG CAP PO SCH ×3 (09:07→20:25)
[2022-04-08] MEDS: Lisinopril 5 MG TAB PO SCH (09:08)
[2022-04-08] MEDS: Sodium Chloride 1 GM TAB PO SCH ×2 (09:08→20:26)
[2022-04-08] MEDS: Amiodarone 200 MG TAB PO SCH ×3 (09:08→20:25)
[2022-04-08] MEDS: Atorvastatin Calcium 40 MG TAB PO SCH (20:26)
[2022-04-08] MEDS ORDERED: Lisinopril 10 MG TAB PO SCH (21:00)
[2022-04-08] MEDS: cefTRIAXone\\ROCEPHIN 1 GM in Sodium Chloride 0.9% 100 ML IVPB SCH (23:42)
[2022-04-09] MEDS: oxyCODONE/Acetaminophen 5 mg/325 mg Tablet PO PRN ×3 (05:43→19:54)
[2022-04-09] MEDS: Sodium Chloride 1 GM TAB PO SCH ×2 (09:14→19:54)
[2022-04-09] MEDS: Aspirin 81 mg Enteric Coated Tablet PO SCH (09:15)
[2022-04-09] MEDS: Gabapentin 300 MG CAP PO SCH ×3 (09:15→19:54)
[2022-04-09] MEDS: Ferrous Sulfate 325 MG TAB PO SCH (09:15)
[2022-04-09] MEDS: Clopidogrel Bisulfate 75 MG TAB PO SCH (09:16)
[2022-04-09] MEDS: Tamsulosin HCl 0.4 MG CAP PO SCH (09:16)
[2022-04-09] MEDS: Senokot S 8.6-50 MG TAB PO SCH ×2 (09:16→19:54)
[2022-04-09] MEDS: Amiodarone 200 MG TAB PO SCH ×3 (09:16→19:54)
[2022-04-09 09:59] LABS: Anion Gap 14 mmol/L (10-20); BUN (Urea Nitrogen) 26 mg/dL (9.8-20.1); Calc. Creatinine Clearance 36 mL/min (70-130); Calcium 9.2 mg/dL (7.8-10.44); Carbon Dioxide 25 mmol/L (23-31); Chloride 97 mmol/L (98-107); Estimated GFR 39; Glucose 144 mg/dL (83-110); Potassium 4.4 mmol/L (3.5-5.1); Sodium 132 mmol/L (136-145)
[2022-04-09] MEDS: Atorvastatin Calcium 40 MG TAB PO SCH (19:53)
[2022-04-10] MEDS: Aspirin 81 mg Enteric Coated Tablet PO SCH (07:56)
[2022-04-10] MEDS: Clopidogrel Bisulfate 75 MG TAB PO SCH (07:57)
[2022-04-10] MEDS: Amiodarone 200 MG TAB PO SCH ×3 (07:57→21:04)
[2022-04-10] MEDS: Senokot S 8.6-50 MG TAB PO SCH ×2 (07:57→21:09)
[2022-04-10] MEDS: Ferrous Sulfate 325 MG TAB PO SCH (07:57)
[2022-04-10] MEDS: Gabapentin 300 MG CAP PO SCH ×3 (07:58→21:04)
[2022-04-10] MEDS: Tamsulosin HCl 0.4 MG CAP PO SCH (07:58)
[2022-04-10] MEDS: oxyCODONE/Acetaminophen 5 mg/325 mg Tablet PO PRN (21:04)
[2022-04-10] MEDS: Atorvastatin Calcium 40 MG TAB PO SCH (21:04)
[2022-04-10] MEDS: Ondansetron ODT 4 MG TAB PO PRN (21:04)
[2022-04-11 04:34] LABS: Hemoglobin 8.9 g/dL (12.0-16.0); Mean Corpuscular HGB CONC 30.7 g/dL (32.0-36.0); Mean Corpuscular Hemoglobin 29.1 pg (27.0-31.0); Mean Corpuscular Volume 94.9 fl (78.0-98.0); Mean Platelet Volume 8.5 fL (7.4-10.4); Platelet Count 381 10x3/uL (130-400); RBC Distribution Width 15.4 % (11.5-14.5); Red Blood Cell (RBC) Count 3.06 mill/uL (4.20-5.40); White Blood Cell (WBC) Count 20.4 10x3/uL (4.8-10.8)
[2022-04-11 04:49] LABS: Anion Gap 14 mmol/L (10-20); BUN (Urea Nitrogen) 23 mg/dL (9.8-20.1); Calc. Creatinine Clearance 37 mL/min (70-130); Carbon Dioxide 23 mmol/L (23-31); Chloride 98 mmol/L (98-107); Estimated GFR 39; Glucose 171 mg/dL (83-110); Potassium 4.1 mmol/L (3.5-5.1); Sodium 131 mmol/L (136-145)
[2022-04-11] MEDS: oxyCODONE/Acetaminophen 5 mg/325 mg Tablet PO PRN ×2 (06:26→17:59)
[2022-04-11] MEDS ORDERED: Docusate 100 MG CAP PO PRN (08:53)
[2022-04-11] MEDS ORDERED: Polyethylene Glycol 3350 17 GM Packet PO PRN (08:53)
[2022-04-11] MEDS: Gabapentin 300 MG CAP PO SCH ×2 (09:44→18:00)
[2022-04-11] MEDS: Clopidogrel Bisulfate 75 MG TAB PO SCH (09:44)
[2022-04-11] MEDS: Ferrous Sulfate 325 MG TAB PO SCH (09:44)
[2022-04-11] MEDS: Tamsulosin HCl 0.4 MG CAP PO SCH (09:44)
[2022-04-11] MEDS: Aspirin 81 mg Enteric Coated Tablet PO SCH (09:45)
[2022-04-11] MEDS: Senokot S 8.6-50 MG TAB PO SCH ×2 (09:45→23:27)
[2022-04-11] MEDS: Amiodarone 200 MG TAB PO SCH ×3 (09:45→23:27)
[2022-04-11 10:38] LABS: Bilirubin Negative (Negative); Blood, Urine Trace (Negative); Clarity Clear (Clear); Glucose, Urine (Dipstick) Normal (Negative); Ketone, Urine Trace mg/dL (Negative); Leukocyte 25 Leu/uL (Negative); Nitrite Negative (Negative); Protein, Urine (Dipstick) 70 mg/dL (Neg-Trace); Specific Gravity, Urine 1.023 (1.002-1.036); Squamous Epithelial 0-3 HPF (0-3); Urobilinogen Normal mg/dL (Less than 2); pH, Urine 5.5 (5.0-9.0)
[2022-04-11 11:11] LABS: Bacteria/HPF 1+ HPF (None Seen)
[2022-04-11] MEDS ORDERED: Lactated Ringer's 500 ML IV SCH (17:00)
[2022-04-11 20:41] LABS: #Eosinphils 0.1 thou/uL (0.0-0.7); #Lymphocytes 1.3 thou/uL (1.20-3.40); #Monocytes 1.4 thou/uL (0.11-0.59); #Neutrophils 14.7 thou/uL (1.40-6.50); %Basophils 0.2 % (0.0-1.0); %Eosinophils 0.4 % (0.0-10.0); %Lymphocytes 7.1 % (21.0-51.0); %Neutrophils 84.1 % (42.0-75.0); Hemoglobin 7.6 g/dL (12.0-16.0); Mean Corpuscular HGB CONC 31.8 g/dL (32.0-36.0); Mean Corpuscular Hemoglobin 30.1 pg (27.0-31.0); Mean Corpuscular Volume 94.7 fl (78.0-98.0); Mean Platelet Volume 7.8 fL (7.4-10.4); Platelet Count 324 10x3/uL (130-400); RBC Distribution Width 15.1 % (11.5-14.5); Red Blood Cell (RBC) Count 2.51 mill/uL (4.20-5.40); White Blood Cell (WBC) Count 17.5 10x3/uL (4.8-10.8)
[2022-04-11 20:56] LABS: Anion Gap 12 mmol/L (10-20); BUN (Urea Nitrogen) 25 mg/dL (9.8-20.1); Calc. Creatinine Clearance 28 mL/min (70-130); Calcium 8.3 mg/dL (7.8-10.44); Carbon Dioxide 21 mmol/L (23-31); Chloride 96 mmol/L (98-107); Estimated GFR 30; Glucose 196 mg/dL (83-110); Potassium 4.3 mmol/L (3.5-5.1); Sodium 125 mmol/L (136-145)
[2022-04-11] MEDS ORDERED: Lactated Ringer's 500 ML IVPB SCH (22:15)
[2022-04-11 23:27] LABS: Bacteria/HPF None Seen HPF (None Seen); Bilirubin Negative (Negative); Blood, Urine 3+ (Negative); CAUTI Indications for Culture Fever or rigors; Clarity Turbid (Clear); Glucose, Urine (Dipstick) Normal (Negative); Ketone, Urine Negative (Negative); Leukocyte 25 Leu/uL (Negative); Nitrite Negative (Negative); Protein, Urine (Dipstick) 20 mg/dL (Neg-Trace); RBC/HPF Greater than 50 HPF (0-3); Specific Gravity, Urine 1.017 (1.002-1.036); Squamous Epithelial None Seen HPF (0-3); Urobilinogen Normal mg/dL (Less than 2); WBC/HPF 0-3 HPF (0-3)
[2022-04-11 23:29] LABS: Urine Culture Reflex No No
[2022-04-12] MEDS: Acetaminophen 325 MG TAB PO PRN (00:25)
[2022-04-12] MEDS: Pantoprazole 80 MG in Sodium Chloride 0.9% 100 ML IVPB SCH ×2 (00:27→10:12)
[2022-04-12] MEDS: Gabapentin 300 MG CAP PO SCH ×4 (00:28→21:43)
[2022-04-12] MEDS: Atorvastatin Calcium 40 MG TAB PO SCH ×2 (00:30→21:44)
[2022-04-12] MEDS: Pantoprazole 40 MG VIAL IVP SCH ×3 (00:30→21:43)
[2022-04-12 05:39] LABS: #Basophils 0.1 thou/uL (0.0-0.2); #Eosinphils 0.1 thou/uL (0.0-0.7); #Lymphocytes 1.4 thou/uL (1.20-3.40); #Monocytes 1.1 thou/uL (0.11-0.59); #Neutrophils 12.6 thou/uL (1.40-6.50); %Basophils 0.4 % (0.0-1.0); %Eosinophils 0.9 % (0.0-10.0); %Lymphocytes 9.1 % (21.0-51.0); %Monocytes 7.3 % (0.0-10.0); %Neutrophils 82.4 % (42.0-75.0); Mean Corpuscular Hemoglobin 31.2 pg (27.0-31.0); Mean Corpuscular Volume 94.7 fl (78.0-98.0); Mean Platelet Volume 8.1 fL (7.4-10.4); Platelet Count 327 10x3/uL (130-400); RBC Distribution Width 14.8 % (11.5-14.5); Red Blood Cell (RBC) Count 3.21 mill/uL (4.20-5.40); White Blood Cell (WBC) Count 15.3 10x3/uL (4.8-10.8)
[2022-04-12 06:01] LABS: Anion Gap 14 mmol/L (10-20); BUN (Urea Nitrogen) 24 mg/dL (9.8-20.1); Calc. Creatinine Clearance 32 mL/min (70-130); Calcium 8.6 mg/dL (7.8-10.44); Carbon Dioxide 20 mmol/L (23-31); Chloride 100 mmol/L (98-107); Estimated GFR 35; Glucose 148 mg/dL (83-110); Potassium 4.7 mmol/L (3.5-5.1); Sodium 129 mmol/L (136-145)
[2022-04-12] MEDS: Ferrous Sulfate 325 MG TAB PO SCH (10:11)
[2022-04-12] MEDS: Amiodarone 200 MG TAB PO SCH ×3 (10:12→21:43)
[2022-04-12] MEDS: Aspirin 81 mg Enteric Coated Tablet PO SCH (10:13)
[2022-04-12] MEDS: Senokot S 8.6-50 MG TAB PO SCH ×2 (10:13→21:43)
[2022-04-12] MEDS: Clopidogrel Bisulfate 75 MG TAB PO SCH (10:13)
[2022-04-12] MEDS: Tamsulosin HCl 0.4 MG CAP PO SCH (10:13)
[2022-04-12] MEDS: oxyCODONE/Acetaminophen 5 mg/325 mg Tablet PO PRN (10:18)
[2022-04-13] MEDS: oxyCODONE/Acetaminophen 5 mg/325 mg Tablet PO PRN ×3 (03:53→22:21)
[2022-04-13 04:21] LABS: Hemoglobin 8.8 g/dL (12.0-16.0); Mean Corpuscular HGB CONC 32.8 g/dL (32.0-36.0); Mean Corpuscular Hemoglobin 30.5 pg (27.0-31.0); Mean Corpuscular Volume 92.9 fl (78.0-98.0); Mean Platelet Volume 8.5 fL (7.4-10.4); Platelet Count 337 10x3/uL (130-400); RBC Distribution Width 14.7 % (11.5-14.5); Red Blood Cell (RBC) Count 2.88 mill/uL (4.20-5.40); White Blood Cell (WBC) Count 12.9 10x3/uL (4.8-10.8)
[2022-04-13 04:38] LABS: Anion Gap 11 mmol/L (10-20); BUN (Urea Nitrogen) 21 mg/dL (9.8-20.1); Calc. Creatinine Clearance 40 mL/min (70-130); Calcium 8.5 mg/dL (7.8-10.44); Carbon Dioxide 21 mmol/L (23-31); Chloride 101 mmol/L (98-107); Estimated GFR 46; Glucose 116 mg/dL (83-110); Potassium 3.9 mmol/L (3.5-5.1); Sodium 129 mmol/L (136-145)
[2022-04-13] MEDS: Pantoprazole 40 MG VIAL IVP SCH ×2 (08:45→22:22)
[2022-04-13] MEDS ORDERED: Ketamine 50 MG/ML (10ML VIAL) ONE (09:52)
[2022-04-13] MEDS ORDERED: Midazolam HCl 2 mg/2 ml Vial ONE (09:52)
[2022-04-13] MEDS ORDERED: PROPOFOL 200 MG/20 ML VIAL ONE (10:03)
[2022-04-13] MEDS ORDERED: Promethazine HCl 25 MG/ML VIAL IM PRN (10:20)
[2022-04-13] MEDS ORDERED: Ondansetron HCl/PF 4 MG/2 ML Vial IVP PRN (10:20)
[2022-04-13] MEDS ORDERED: Promethazine HCl 25 MG/ML VIAL IVPB PRN (10:20)
[2022-04-13] MEDS: Ferrous Sulfate 325 MG TAB PO SCH (11:28)
[2022-04-13] MEDS: Amiodarone 200 MG TAB PO SCH ×3 (11:29→22:21)
[2022-04-13] MEDS: Aspirin 81 mg Enteric Coated Tablet PO SCH (11:29)
[2022-04-13] MEDS: Gabapentin 300 MG CAP PO SCH ×3 (11:29→22:21)
[2022-04-13] MEDS: Clopidogrel Bisulfate 75 MG TAB PO SCH (11:29)
[2022-04-13] MEDS: Senokot S 8.6-50 MG TAB PO SCH ×2 (11:30→22:16)
[2022-04-13] MEDS: Tamsulosin HCl 0.4 MG CAP PO SCH (11:30)
[2022-04-13 18:51] LABS: Hemoglobin 9.9 g/dL (12.0-16.0)
[2022-04-13] MEDS: Atorvastatin Calcium 40 MG TAB PO SCH (22:21)
[2022-04-14 04:56] LABS: Hemoglobin 10.2 g/dL (12.0-16.0); Mean Corpuscular HGB CONC 31.3 g/dL (32.0-36.0); Mean Corpuscular Volume 95.7 fl (78.0-98.0); Platelet Count 377 10x3/uL (130-400); RBC Distribution Width 14.9 % (11.5-14.5); White Blood Cell (WBC) Count 12.6 10x3/uL (4.8-10.8)
[2022-04-14 05:59] LABS: Anion Gap 13 mmol/L (10-20); BUN (Urea Nitrogen) 19 mg/dL (9.8-20.1); Calc. Creatinine Clearance 43 mL/min (70-130); Calcium 9.1 mg/dL (7.8-10.44); Carbon Dioxide 20 mmol/L (23-31); Chloride 102 mmol/L (98-107); Estimated GFR 51; Glucose 114 mg/dL (83-110); Potassium 4.2 mmol/L (3.5-5.1); Sodium 131 mmol/L (136-145)
[2022-04-14] MEDS: Amiodarone 200 MG TAB PO SCH ×3 (09:23→21:05)
[2022-04-14] MEDS: Clopidogrel Bisulfate 75 MG TAB PO SCH (09:24)
[2022-04-14] MEDS: Senokot S 8.6-50 MG TAB PO SCH ×2 (09:24→21:04)
[2022-04-14] MEDS: Gabapentin 300 MG CAP PO SCH ×3 (09:24→21:04)
[2022-04-14] MEDS: Aspirin 81 mg Enteric Coated Tablet PO SCH (09:24)
[2022-04-14] MEDS: Pantoprazole 40 MG VIAL IVP SCH (09:25)
[2022-04-14] MEDS: Tamsulosin HCl 0.4 MG CAP PO SCH (09:25)
[2022-04-14] MEDS: Ferrous Sulfate 325 MG TAB PO SCH (09:25)
[2022-04-14] MEDS: oxyCODONE/Acetaminophen 5 mg/325 mg Tablet PO PRN ×2 (09:54→17:54)
[2022-04-14] MEDS ORDERED: Dextrose 50% Abboject 50 ML SYRINGE SLOW IVP PRN (12:36)
[2022-04-14] MEDS ORDERED: Dextrose 5% in Water 1,000 ML IV PRN (12:36)
[2022-04-14] MEDS: HumaLOG 300 UNITS/3 ML VIAL SC PRN (13:18)
[2022-04-14] MEDS: Atorvastatin Calcium 40 MG TAB PO SCH (21:05)
[2022-04-15] MEDS: oxyCODONE/Acetaminophen 5 mg/325 mg Tablet PO PRN ×3 (04:24→20:05)
[2022-04-15 08:14] LABS: #Basophils 0.1 thou/uL (0.0-0.2); #Eosinphils 0.4 thou/uL (0.0-0.7); #Lymphocytes 1.4 thou/uL (1.20-3.40); #Monocytes 0.6 thou/uL (0.11-0.59); #Neutrophils 7.6 thou/uL (1.40-6.50); %Basophils 0.7 % (0.0-1.0); %Eosinophils 4.2 % (0.0-10.0); %Lymphocytes 13.8 % (21.0-51.0); %Monocytes 5.9 % (0.0-10.0); %Neutrophils 75.4 % (42.0-75.0); Hemoglobin 10.1 g/dL (12.0-16.0); Mean Corpuscular HGB CONC 31.9 g/dL (32.0-36.0); Mean Corpuscular Hemoglobin 30.2 pg (27.0-31.0); Mean Corpuscular Volume 94.7 fl (78.0-98.0); Mean Platelet Volume 7.7 fL (7.4-10.4); Platelet Count 371 10x3/uL (130-400); Red Blood Cell (RBC) Count 3.35 mill/uL (4.20-5.40); White Blood Cell (WBC) Count 10.1 10x3/uL (4.8-10.8)
[2022-04-15 08:32] LABS: Anion Gap 14 mmol/L (10-20); BUN (Urea Nitrogen) 16 mg/dL (9.8-20.1); Calc. Creatinine Clearance 49 mL/min (70-130); Calcium 8.8 mg/dL (7.8-10.44); Carbon Dioxide 21 mmol/L (23-31); Chloride 104 mmol/L (98-107); Estimated GFR 58; Glucose 122 mg/dL (83-110); Potassium 4.3 mmol/L (3.5-5.1); Sodium 135 mmol/L (136-145)
[2022-04-15] MEDS: Aspirin 81 mg Enteric Coated Tablet PO SCH (09:06)
[2022-04-15] MEDS: Senokot S 8.6-50 MG TAB PO SCH ×2 (09:07→20:06)
[2022-04-15] MEDS: Amiodarone 200 MG TAB PO SCH ×3 (09:07→20:10)
[2022-04-15] MEDS: Gabapentin 300 MG CAP PO SCH ×3 (09:07→20:04)
[2022-04-15] MEDS: Tamsulosin HCl 0.4 MG CAP PO SCH (09:07)
[2022-04-15] MEDS: Clopidogrel Bisulfate 75 MG TAB PO SCH (09:07)
[2022-04-15] MEDS: Ferrous Sulfate 325 MG TAB PO SCH (09:08)
[2022-04-15] MEDS ORDERED: Lisinopril 5 MG TAB PO SCH (10:45)
[2022-04-15] MEDS: HumaLOG 300 UNITS/3 ML VIAL SC PRN ×2 (12:30→17:04)
[2022-04-15] MEDS: Atorvastatin Calcium 40 MG TAB PO SCH (20:04)
[2022-04-16] MEDS: oxyCODONE/Acetaminophen 5 mg/325 mg Tablet PO PRN ×3 (05:20→19:49)
[2022-04-16 05:37] LABS: #Basophils 0.1 thou/uL (0.0-0.2); #Eosinphils 0.5 thou/uL (0.0-0.7); #Lymphocytes 1.3 thou/uL (1.20-3.40); #Monocytes 0.8 thou/uL (0.11-0.59); #Neutrophils 6.1 thou/uL (1.40-6.50); %Eosinophils 6.1 % (0.0-10.0); %Lymphocytes 15.2 % (21.0-51.0); %Monocytes 8.7 % (0.0-10.0); Hemoglobin 10.4 g/dL (12.0-16.0); Mean Corpuscular HGB CONC 31.6 g/dL (32.0-36.0); Mean Corpuscular Hemoglobin 30.1 pg (27.0-31.0); Mean Corpuscular Volume 95.4 fl (78.0-98.0); Mean Platelet Volume 8.9 fL (7.4-10.4); Platelet Count 372 10x3/uL (130-400); RBC Distribution Width 15.2 % (11.5-14.5); Red Blood Cell (RBC) Count 3.45 mill/uL (4.20-5.40); White Blood Cell (WBC) Count 8.8 10x3/uL (4.8-10.8)
[2022-04-16 05:53] LABS: Anion Gap 16 mmol/L (10-20); BUN (Urea Nitrogen) 14 mg/dL (9.8-20.1); Calc. Creatinine Clearance 52 mL/min (70-130); Calcium 8.7 mg/dL (7.8-10.44); Carbon Dioxide 19 mmol/L (23-31); Chloride 105 mmol/L (98-107); Estimated GFR 62; Glucose 118 mg/dL (83-110); Potassium 4.7 mmol/L (3.5-5.1); Sodium 135 mmol/L (136-145)
[2022-04-16] MEDS: Amiodarone 200 MG TAB PO SCH ×3 (08:25→21:13)
[2022-04-16] MEDS: Clopidogrel Bisulfate 75 MG TAB PO SCH (08:26)
[2022-04-16] MEDS: Ferrous Sulfate 325 MG TAB PO SCH (08:26)
[2022-04-16] MEDS: Gabapentin 300 MG CAP PO SCH ×3 (08:26→21:12)
[2022-04-16] MEDS: Aspirin 81 mg Enteric Coated Tablet PO SCH (08:27)
[2022-04-16] MEDS: Lisinopril 5 MG TAB PO SCH (08:27)
[2022-04-16] MEDS: Senokot S 8.6-50 MG TAB PO SCH ×2 (08:27→21:14)
[2022-04-16] MEDS: Tamsulosin HCl 0.4 MG CAP PO SCH (08:27)
[2022-04-16] MEDS: HumaLOG 300 UNITS/3 ML VIAL SC PRN (17:42)
[2022-04-16] MEDS: Atorvastatin Calcium 40 MG TAB PO SCH (21:12)
[2022-04-17] MEDS: oxyCODONE/Acetaminophen 5 mg/325 mg Tablet PO PRN ×2 (02:43→12:32)
[2022-04-17 06:46] LABS: Anion Gap 14 mmol/L (10-20); BUN (Urea Nitrogen) 15 mg/dL (9.8-20.1); Calc. Creatinine Clearance 47 mL/min (70-130); Calcium 8.7 mg/dL (7.8-10.44); Carbon Dioxide 20 mmol/L (23-31); Chloride 104 mmol/L (98-107); Estimated GFR 59; Glucose 119 mg/dL (83-110); Magnesium 1.5 mg/dL (1.6-2.6); Potassium 4.3 mmol/L (3.5-5.1); Sodium 134 mmol/L (136-145)
[2022-04-17 06:55] LABS: #Basophils 0.1 thou/uL (0.0-0.2); #Eosinphils 0.6 thou/uL (0.0-0.7); #Lymphocytes 1.6 thou/uL (1.20-3.40); #Monocytes 0.7 thou/uL (0.11-0.59); #Neutrophils 7.7 thou/uL (1.40-6.50); %Basophils 0.9 % (0.0-1.0); %Eosinophils 5.2 % (0.0-10.0); %Lymphocytes 14.9 % (21.0-51.0); %Monocytes 6.8 % (0.0-10.0); %Neutrophils 72.2 % (42.0-75.0); Hemoglobin 10.2 g/dL (12.0-16.0); Mean Corpuscular Hemoglobin 30.5 pg (27.0-31.0); Mean Corpuscular Volume 98.6 fl (78.0-98.0); Platelet Count 400 10x3/uL (130-400); RBC Distribution Width 14.8 % (11.5-14.5); Red Blood Cell (RBC) Count 3.35 mill/uL (4.20-5.40); White Blood Cell (WBC) Count 10.7 10x3/uL (4.8-10.8)
[2022-04-17] MEDS ORDERED: Magnesium 2 GM/50 ML(in water) 2 GM in Premix Bag 1 BAG IVPB SCH (08:00)
[2022-04-17] MEDS: Lisinopril 5 MG TAB PO SCH (09:28)
[2022-04-17] MEDS: Aspirin 81 mg Enteric Coated Tablet PO SCH (09:28)
[2022-04-17] MEDS: Ferrous Sulfate 325 MG TAB PO SCH (09:28)
[2022-04-17] MEDS: Senokot S 8.6-50 MG TAB PO SCH ×2 (09:28→22:30)
[2022-04-17] MEDS: Gabapentin 300 MG CAP PO SCH ×3 (09:28→22:30)
[2022-04-17] MEDS: Amiodarone 200 MG TAB PO SCH ×3 (09:29→22:30)
[2022-04-17] MEDS: Clopidogrel Bisulfate 75 MG TAB PO SCH (09:29)
[2022-04-17] MEDS: Tamsulosin HCl 0.4 MG CAP PO SCH (09:29)
[2022-04-17] MEDS ORDERED: GoLYTELY 4,000 ml Bottle PO SCH (15:15)
[2022-04-17 15:43] LABS: Hemoglobin 9.3 g/dL (12.0-16.0)
[2022-04-17] MEDS: Atorvastatin Calcium 40 MG TAB PO SCH (22:30)
[2022-04-17 23:40] LABS: Hemoglobin 9.9 g/dL (12.0-16.0)
[2022-04-18 05:53] LABS: #Basophils 0.1 thou/uL (0.0-0.2); #Eosinphils 0.6 thou/uL (0.0-0.7); #Lymphocytes 1.7 thou/uL (1.20-3.40); #Monocytes 0.7 thou/uL (0.11-0.59); %Basophils 0.6 % (0.0-1.0); %Eosinophils 5.8 % (0.0-10.0); %Lymphocytes 16.7 % (21.0-51.0); %Neutrophils 69.9 % (42.0-75.0); Mean Corpuscular HGB CONC 31.1 g/dL (32.0-36.0); Mean Corpuscular Hemoglobin 29.7 pg (27.0-31.0); Mean Corpuscular Volume 95.4 fl (78.0-98.0); Mean Platelet Volume 7.8 fL (7.4-10.4); Platelet Count 440 10x3/uL (130-400); RBC Distribution Width 15.1 % (11.5-14.5); Red Blood Cell (RBC) Count 3.37 mill/uL (4.20-5.40); White Blood Cell (WBC) Count 9.9 10x3/uL (4.8-10.8)
[2022-04-18 06:09] LABS: Anion Gap 13 mmol/L (10-20); BUN (Urea Nitrogen) 16 mg/dL (9.8-20.1); Calc. Creatinine Clearance 47 mL/min (70-130); Carbon Dioxide 23 mmol/L (23-31); Chloride 104 mmol/L (98-107); Potassium 4.1 mmol/L (3.5-5.1)
[2022-04-18 06:10] LABS: Calcium 8.6 mg/dL (7.8-10.44); Estimated GFR 59; Glucose 128 mg/dL (83-110); Magnesium 2.1 mg/dL (1.6-2.6)
[2022-04-18 06:12] LABS: Sodium 136 mmol/L (136-145)
[2022-04-18] MEDS: Senokot S 8.6-50 MG TAB PO SCH ×2 (07:59→20:56)
[2022-04-18 08:18] LABS: Hemoglobin 10.2 g/dL (12.0-16.0)
[2022-04-18] MEDS: Gabapentin 300 MG CAP PO SCH ×3 (08:21→20:54)
[2022-04-18] MEDS: Amiodarone 200 MG TAB PO SCH ×3 (08:21→20:56)
[2022-04-18] MEDS: Lisinopril 5 MG TAB PO SCH (08:22)
[2022-04-18] MEDS: oxyCODONE/Acetaminophen 5 mg/325 mg Tablet PO PRN ×2 (08:24→13:50)
[2022-04-18] MEDS: Aspirin 81 mg Enteric Coated Tablet PO SCH ×2 (08:25→09:08)
[2022-04-18] MEDS: Tamsulosin HCl 0.4 MG CAP PO SCH (08:25)
[2022-04-18] MEDS ORDERED: PHENYLEPHRINE-NS 100 MCG/ML 10 ML SYRINGE ONE (10:53)
[2022-04-18] MEDS ORDERED: Phenylephrine 10 MG/ML VIAL ONE (11:01)
[2022-04-18] MEDS ORDERED: PROPOFOL 200 MG/20 ML VIAL ONE (11:01)
[2022-04-18] MEDS ORDERED: Morphine 4 MG/ML VIAL SLOW IVP SCH (15:30)
[2022-04-18] MEDS: Atorvastatin Calcium 40 MG TAB PO SCH (20:56)
[2022-04-19 06:28] LABS: #Basophils 0.1 thou/uL (0.0-0.2); #Eosinphils 0.6 thou/uL (0.0-0.7); #Lymphocytes 1.7 thou/uL (1.20-3.40); #Monocytes 0.5 thou/uL (0.11-0.59); #Neutrophils 6.4 thou/uL (1.40-6.50); %Basophils 1.3 % (0.0-1.0); %Eosinophils 6.9 % (0.0-10.0); %Monocytes 5.2 % (0.0-10.0); %Neutrophils 68.6 % (42.0-75.0); Hemoglobin 8.8 g/dL (12.0-16.0); Mean Corpuscular HGB CONC 32.1 g/dL (32.0-36.0); Mean Corpuscular Hemoglobin 30.5 pg (27.0-31.0); Mean Corpuscular Volume 95.2 fl (78.0-98.0); Mean Platelet Volume 7.5 fL (7.4-10.4); Platelet Count 413 10x3/uL (130-400); RBC Distribution Width 14.9 % (11.5-14.5); Red Blood Cell (RBC) Count 2.87 mill/uL (4.20-5.40); White Blood Cell (WBC) Count 9.4 10x3/uL (4.8-10.8)
[2022-04-19 06:45] LABS: Magnesium 1.7 mg/dL (1.6-2.6)
[2022-04-19 06:46] LABS: Anion Gap 13 mmol/L (10-20); BUN (Urea Nitrogen) 12 mg/dL (9.8-20.1); Calc. Creatinine Clearance 50 mL/min (70-130); Calcium 8.5 mg/dL (7.8-10.44); Carbon Dioxide 22 mmol/L (23-31); Chloride 106 mmol/L (98-107); Estimated GFR 61; Glucose 120 mg/dL (83-110); Sodium 137 mmol/L (136-145)
[2022-04-19] MEDS ORDERED: Magnesium 2 GM/50 ML(in water) 2 GM in Premix Bag 1 BAG IVPB SCH (08:00)
[2022-04-19] MEDS: oxyCODONE/Acetaminophen 5 mg/325 mg Tablet PO PRN ×3 (08:45→20:55)
[2022-04-19] MEDS: Aspirin 81 mg Enteric Coated Tablet PO SCH (08:45)
[2022-04-19] MEDS: Gabapentin 300 MG CAP PO SCH ×3 (08:45→20:53)
[2022-04-19] MEDS: Tamsulosin HCl 0.4 MG CAP PO SCH (08:46)
[2022-04-19] MEDS: Amiodarone 200 MG TAB PO SCH ×3 (08:46→20:53)
[2022-04-19] MEDS: Lisinopril 5 MG TAB PO SCH (08:46)
[2022-04-19] MEDS: Senokot S 8.6-50 MG TAB PO SCH ×2 (08:47→20:53)
[2022-04-19] MEDS: HumaLOG 300 UNITS/3 ML VIAL SC PRN (11:16)
[2022-04-19] MEDS: Atorvastatin Calcium 40 MG TAB PO SCH (20:53)
[2022-04-20 05:52] LABS: #Basophils 0.1 thou/uL (0.0-0.2); #Eosinphils 0.7 thou/uL (0.0-0.7); #Lymphocytes 1.6 thou/uL (1.20-3.40); #Monocytes 0.5 thou/uL (0.11-0.59); #Neutrophils 6.2 thou/uL (1.40-6.50); %Basophils 1.1 % (0.0-1.0); %Eosinophils 7.6 % (0.0-10.0); %Lymphocytes 17.5 % (21.0-51.0); %Neutrophils 68.9 % (42.0-75.0); Hemoglobin 8.8 g/dL (12.0-16.0); Mean Corpuscular HGB CONC 32.1 g/dL (32.0-36.0); Mean Corpuscular Hemoglobin 30.2 pg (27.0-31.0); Mean Corpuscular Volume 94.2 fl (78.0-98.0); Mean Platelet Volume 7.5 fL (7.4-10.4); Platelet Count 446 10x3/uL (130-400); RBC Distribution Width 14.8 % (11.5-14.5); Red Blood Cell (RBC) Count 2.91 mill/uL (4.20-5.40); White Blood Cell (WBC) Count 8.9 10x3/uL (4.8-10.8)
[2022-04-20 06:10] LABS: Anion Gap 11 mmol/L (10-20); BUN (Urea Nitrogen) 11 mg/dL (9.8-20.1); Calc. Creatinine Clearance 45 mL/min (70-130); Calcium 8.6 mg/dL (7.8-10.44); Carbon Dioxide 24 mmol/L (23-31); Chloride 104 mmol/L (98-107); Estimated GFR 53; Glucose 114 mg/dL (83-110); Potassium 4.2 mmol/L (3.5-5.1); Sodium 135 mmol/L (136-145)
[2022-04-20 06:12] LABS: Magnesium 2.1 mg/dL (1.6-2.6)
[2022-04-20] MEDS: Amiodarone 200 MG TAB PO SCH ×2 (07:28→19:58)
[2022-04-20] MEDS: Tamsulosin HCl 0.4 MG CAP PO SCH (07:29)
[2022-04-20] MEDS: Lisinopril 5 MG TAB PO SCH (07:29)
[2022-04-20] MEDS: oxyCODONE/Acetaminophen 5 mg/325 mg Tablet PO PRN ×3 (07:29→19:59)
[2022-04-20] MEDS: Gabapentin 300 MG CAP PO SCH ×3 (07:30→19:59)
[2022-04-20] MEDS: Senokot S 8.6-50 MG TAB PO SCH ×2 (07:30→19:58)
[2022-04-20] MEDS ORDERED: Aspirin 81 mg Enteric Coated Tablet PO SCH (13:30)
[2022-04-20] MEDS ORDERED: Clopidogrel Bisulfate 75 MG TAB PO SCH (14:00)
[2022-04-20] MEDS: Atorvastatin Calcium 40 MG TAB PO SCH (20:01)
[2022-04-21 05:41] LABS: #Basophils 0.1 thou/uL (0.0-0.2); #Eosinphils 0.6 thou/uL (0.0-0.7); #Lymphocytes 2.1 thou/uL (1.20-3.40); #Monocytes 0.5 thou/uL (0.11-0.59); %Eosinophils 6.7 % (0.0-10.0); %Lymphocytes 22.2 % (21.0-51.0); %Monocytes 5.2 % (0.0-10.0); %Neutrophils 64.8 % (42.0-75.0); Hemoglobin 8.6 g/dL (12.0-16.0); Mean Corpuscular HGB CONC 32.4 g/dL (32.0-36.0); Mean Corpuscular Hemoglobin 30.5 pg (27.0-31.0); Mean Corpuscular Volume 93.9 fl (78.0-98.0); Mean Platelet Volume 7.4 fL (7.4-10.4); Platelet Count 431 10x3/uL (130-400); RBC Distribution Width 14.8 % (11.5-14.5); Red Blood Cell (RBC) Count 2.83 mill/uL (4.20-5.40); White Blood Cell (WBC) Count 9.2 10x3/uL (4.8-10.8)
[2022-04-21 06:13] LABS: Anion Gap 11 mmol/L (10-20); BUN (Urea Nitrogen) 15 mg/dL (9.8-20.1); Calc. Creatinine Clearance 46 mL/min (70-130); Calcium 8.5 mg/dL (7.8-10.44); Carbon Dioxide 24 mmol/L (23-31); Chloride 103 mmol/L (98-107); Estimated GFR 56; Glucose 137 mg/dL (83-110); Magnesium 1.9 mg/dL (1.6-2.6); Potassium 4.2 mmol/L (3.5-5.1); Sodium 134 mmol/L (136-145)
[2022-04-21] MEDS ORDERED: Magnesium 2 GM/50 ML(in water) 2 GM in Premix Bag 1 BAG IVPB SCH (08:00)
[2022-04-21] MEDS: Tamsulosin HCl 0.4 MG CAP PO SCH (08:52)
[2022-04-21] MEDS: Lisinopril 5 MG TAB PO SCH (08:52)
[2022-04-21] MEDS: Amiodarone 200 MG TAB PO SCH ×2 (08:52→20:23)
[2022-04-21] MEDS: Gabapentin 300 MG CAP PO SCH ×3 (08:52→20:22)
[2022-04-21] MEDS: Clopidogrel Bisulfate 75 MG TAB PO SCH (08:52)
[2022-04-21] MEDS: Aspirin 81 mg Enteric Coated Tablet PO SCH (08:52)
[2022-04-21] MEDS: Docusate 100 MG CAP PO SCH ×2 (08:53→20:23)
[2022-04-21] MEDS: oxyCODONE/Acetaminophen 5 mg/325 mg Tablet PO PRN ×3 (08:58→20:22)
[2022-04-21] MEDS: HumaLOG 300 UNITS/3 ML VIAL SC PRN (18:37)
[2022-04-21] MEDS: Atorvastatin Calcium 40 MG TAB PO SCH (20:23)
[2022-04-21] MEDS ORDERED: Polyethylene Glycol 3350 17 GM Packet PO SCH (21:00)
[2022-04-22] MEDS: Ondansetron ODT 4 MG TAB PO PRN ×2 (03:01→11:20)
[2022-04-22] MEDS: HumaLOG 300 UNITS/3 ML VIAL SC PRN (05:31)
[2022-04-22] MEDS: oxyCODONE/Acetaminophen 5 mg/325 mg Tablet PO PRN (08:36)
[2022-04-22] MEDS: Aspirin 81 mg Enteric Coated Tablet PO SCH (08:37)
[2022-04-22] MEDS: Gabapentin 300 MG CAP PO SCH ×2 (08:37→14:16)
[2022-04-22] MEDS: Amiodarone 200 MG TAB PO SCH (08:38)
[2022-04-22] MEDS: Clopidogrel Bisulfate 75 MG TAB PO SCH (08:38)
[2022-04-22] MEDS: Docusate 100 MG CAP PO SCH (08:38)
[2022-04-22] MEDS: Tamsulosin HCl 0.4 MG CAP PO SCH (08:39)
[2022-04-22] MEDS: Lisinopril 5 MG TAB PO SCH (09:17)
[2022-04-22 12:37] VITALS: TEMP 97.6
[2022-04-22 14:38] VITALS: BMI 28.0
[2022-04-22 16:24] VITALS: BP 130/62
== END 2022-04-22 17:07 | DRG 280 ==
LOC: SUATTDRO 01:36 → ERS 01:36 → IMCU/EMU 09:58 → CCU 23:33 → IMCU/EMU 04-06 19:25 → 2NO 04-08 20:11 → IMCU/EMU 04-11 22:56 → NEURO 04-13 20:34
PROVIDERS: ADMIT Internal Medicine; ATTEND Internal Medicine
PROC: 5A09357 Assistance with Respiratory Ventilation, Less than 24 Consecutive Hours, Continuous Positive Airway Pressure (ICD-10-PCS; principal; 2022-04-02)
PROC: 3E033XZ Introduction of Vasopressor into Peripheral Vein, Percutaneous Approach (ICD-10-PCS; 2022-04-02)
PROC: 30233N1 Transfusion of Nonautologous Red Blood Cells into Peripheral Vein, Percutaneous Approach (ICD-10-PCS; 2022-04-12)
PROC: 0DJ08ZZ Inspection of Upper Intestinal Tract, Via Natural or Artificial Opening Endoscopic (ICD-10-PCS; 2022-04-13)
PROC: 0DBE8ZX Excision of Large Intestine, Via Natural or Artificial Opening Endoscopic, Diagnostic (ICD-10-PCS; 2022-04-18)
DX: I21.4 Non-ST elevation (NSTEMI) myocardial infarction (principal); Z20.822 Contact with and (suspected) exposure to COVID-19; J96.01 Acute respiratory failure with hypoxia; R57.8 Other shock; K55.9 Vascular disorder of intestine, unspecified; K62.6 Ulcer of anus and rectum; N39.0 Urinary tract infection, site not specified; I74.09 Other arterial embolism and thrombosis of abdominal aorta; L76.32 Postprocedural hematoma of skin and subcutaneous tissue following other procedure; J98.11 Atelectasis; E87.1 Hypo-osmolality and hyponatremia; K92.1 Melena; I13.0 Hypertensive heart and chronic kidney disease with heart failure and stage 1 through stage 4 chronic kidney disease, or unspecified chronic kidney disease; Z96.642 Presence of left artificial hip joint; R31.9 Hematuria, unspecified; J43.9 Emphysema, unspecified; M25.552 Pain in left hip; G89.29 Other chronic pain; R80.9 Proteinuria, unspecified; Y84.8 Other medical procedures as the cause of abnormal reaction of the patient, or of later complication, without mention of misadventure at the time of the procedure; I73.9 Peripheral vascular disease, unspecified; E78.00 Pure hypercholesterolemia, unspecified; I48.0 Paroxysmal atrial fibrillation; I25.10 Atherosclerotic heart disease of native coronary artery without angina pectoris; D50.0 Iron deficiency anemia secondary to blood loss (chronic); K59.09 Other constipation; N18.30 Chronic kidney disease, stage 3 unspecified; E11.22 Type 2 diabetes mellitus with diabetic chronic kidney disease; E83.42 Hypomagnesemia; R00.1 Bradycardia, unspecified; R33.9 Retention of urine, unspecified; E11.29 Type 2 diabetes mellitus with other diabetic kidney complication; Z95.828 Presence of other vascular implants and grafts; Z88.5 Allergy status to narcotic agent; Z79.899 Other long term (current) drug therapy; Z79.82 Long term (current) use of aspirin; Z79.02 Long term (current) use of antithrombotics/antiplatelets; Z79.84 Long term (current) use of oral hypoglycemic drugs; Z98.890 Other specified postprocedural states; Z87.891 Personal history of nicotine dependence; Z88.6 Allergy status to analgesic agent
CPT/HCPCS: 36415; 36416; 36430; 36600; 71045; 71275; 74176; 76936; 80048; 80053; 81001; 81003; 81015; 82274; 82553; 82728; 82805; 83540; 83550; 83605; 83690; 83735; 83880; 84100; 84145; 84443; 84484; 85025; 85027; 85610; 85730; 86850; 86900; 86901; 87040; 87077; 87086; 87149; 87811; 88305; 93005; 93010; 93306; 94640; 94660; 96372; 96374; 96375; C9113; J0282; J0461; J0696; J1265; J1650; J1815; J1940; J2250; J2270; J2370; J2405; J2704; J3010; J3475; J3480; J3490; J7030; J7050; J7070; J7120; J7620; P9016; Q0162; Q9967; U0003; U0005

== ENCOUNTER 2022-05-11 11:21 | Inpatient (IN) | payer MEDICARE ==
[2022-05-11 13:01] LABS: Base Excess -11.6 mEq/L (-2.0 to +3.0); Calcium, Ionized (venous) 1.01 mmol/L (1.16-1.32); Chloride (VBG) 103 mmol/L (98-106); Hemoglobin (Hb) 8.5 g/dL (11.7-16.1); Potassium (VBG) 5.49 mmol/L (3.70-5.30); Sodium 130.6 mmol/L (133-146); pH (venous) 7.33 (7.32-7.43)
[2022-05-11 13:02] LABS: Actual Bicarbonate (HCO3v) 13 mEq/L (22-28)
[2022-05-11 13:12] LABS: #Lymphocytes 1.1 thou/uL (1.20-3.40); #Monocytes 0.1 thou/uL (0.11-0.59); #Neutrophils 8.4 thou/uL (1.40-6.50); %Basophils 0.3 % (0.0-1.0); %Eosinophils 0.4 % (0.0-10.0); %Lymphocytes 11.1 % (21.0-51.0); %Monocytes 1.1 % (0.0-10.0); Mean Corpuscular HGB CONC 31.5 g/dL (32.0-36.0); Mean Corpuscular Hemoglobin 30.5 pg (27.0-31.0); Mean Corpuscular Volume 96.9 fl (78.0-98.0); Mean Platelet Volume 8.2 fL (7.4-10.4); Platelet Count 419 10x3/uL (130-400); RBC Distribution Width 16.3 % (11.5-14.5); Red Blood Cell (RBC) Count 2.63 mill/uL (4.20-5.40); White Blood Cell (WBC) Count 9.6 10x3/uL (4.8-10.8)
[2022-05-11 13:23] LABS: INR-International Normal Ratio 1.1; PTT 24.1 sec (22.9-36.1); Prothrombin Time 15.1 sec (12.0-14.7)
[2022-05-11 13:33] LABS: ALT (SGPT) 33 U/L (8-55); AST (SGOT) 53 U/L (5-34); Albumin 3.5 g/dL (3.4-4.8); Alkaline Phosphatase 122 U/L (40-110); Anion Gap 23 mmol/L (10-20); BUN (Urea Nitrogen) 36 mg/dL (9.8-20.1); Bilirubin, Total 0.4 mg/dL (0.2-1.2); Calc. Creatinine Clearance 0 mL/min (70-130); Calcium 8.8 mg/dL (7.8-10.44); Carbon Dioxide 10 mmol/L (23-31); Chloride 103 mmol/L (98-107); Estimated GFR 25; Globulin 3.9 g/dL (2.4-3.5); Potassium 5.4 mmol/L (3.5-5.1); Protein, Total 7.4 g/dL (5.8-8.1); Sodium 131 mmol/L (136-145)
[2022-05-11 13:41] LABS: Glucose 426 mg/dL (83-110)
[2022-05-11] MEDS ORDERED: Aspirin Chewable 81 MG TAB ONE (13:57)
[2022-05-11 14:26] LABS: CKMB 2.4 ng/mL (0-6.6)
[2022-05-11] MEDS ORDERED: Dextrose 50% Abboject 50 ML SYRINGE SLOW IVP PRN (16:51)
[2022-05-11] MEDS ORDERED: Dextrose 5% in Water 1,000 ML IV PRN (16:51)
[2022-05-11] MEDS ORDERED: Furosemide 20 MG/2 ML VIAL SLOW IVP SCH (17:45)
[2022-05-11 18:06] LABS: CKMB 3.4 ng/mL (0-6.6)
[2022-05-11] MEDS ORDERED: Furosemide 20 MG/2 ML VIAL ONE (18:22)
[2022-05-11] MEDS ORDERED: Pantoprazole 40 MG VIAL ONE (18:22)
[2022-05-11 19:12] LABS: Hemoglobin 7.3 g/dL (12.0-16.0)
[2022-05-11 19:49] VITALS: BMI 27.6
[2022-05-11] MEDS: Amiodarone 200 MG TAB PO SCH (21:17)
[2022-05-11] MEDS: Atorvastatin Calcium 40 MG TAB PO SCH (21:17)
[2022-05-11] MEDS: Docusate 100 MG CAP PO SCH (21:17)
[2022-05-11] MEDS: HumaLOG 300 UNITS/3 ML VIAL SC PRN (21:20)
[2022-05-11 22:49] LABS: Lactic Acid 2.5 mmol/L (0.5-2.2)
[2022-05-11] MEDS ORDERED: Sodium Chloride 0.9% 500 ML IV SCH ×2 (23:27→23:30)
[2022-05-12 01:19] LABS: Hemoglobin 7.1 g/dL (12.0-16.0)
[2022-05-12 01:42] LABS: Lactic Acid 1.7 mmol/L (0.5-2.2)
[2022-05-12] MEDS: oxyCODONE/Acetaminophen 5 mg/325 mg Tablet PO PRN ×2 (04:05→22:45)
[2022-05-12 04:39] LABS: #Eosinphils 0.1 thou/uL (0.0-0.7); #Lymphocytes 2.1 thou/uL (1.20-3.40); #Monocytes 1.3 thou/uL (0.11-0.59); #Neutrophils 11.6 thou/uL (1.40-6.50); %Basophils 0.1 % (0.0-1.0); %Eosinophils 0.4 % (0.0-10.0); %Lymphocytes 13.7 % (21.0-51.0); %Monocytes 8.8 % (0.0-10.0); %Neutrophils 77.1 % (42.0-75.0); Mean Corpuscular HGB CONC 32.4 g/dL (32.0-36.0); Mean Corpuscular Hemoglobin 30.2 pg (27.0-31.0); Mean Corpuscular Volume 93.3 fl (78.0-98.0); Platelet Count 405 10x3/uL (130-400); RBC Distribution Width 16.3 % (11.5-14.5); Red Blood Cell (RBC) Count 2.33 mill/uL (4.20-5.40)
[2022-05-12 04:46] LABS: ALT (SGPT) 28 U/L (8-55); AST (SGOT) 44 U/L (5-34); Albumin 3.3 g/dL (3.4-4.8); Alkaline Phosphatase 99 U/L (40-110); Anion Gap 15 mmol/L (10-20); BUN (Urea Nitrogen) 39 mg/dL (9.8-20.1); Bilirubin, Total 0.3 mg/dL (0.2-1.2); Calc. Creatinine Clearance 26 mL/min (70-130); Calcium 8.7 mg/dL (7.8-10.44); Carbon Dioxide 20 mmol/L (23-31); Chloride 102 mmol/L (98-107); Estimated GFR 28; Globulin 3.4 g/dL (2.4-3.5); Glucose 194 mg/dL (83-110); Magnesium 2.4 mg/dL (1.6-2.6); Protein, Total 6.7 g/dL (5.8-8.1); Sodium 132 mmol/L (136-145)
[2022-05-12] MEDS ORDERED: FLU VACC QS2022-23(65YR UP)/PF 240 MCG/0.7 ML SYRINGE IM ONE (09:00)
[2022-05-12] MEDS: Docusate 100 MG CAP PO SCH ×2 (09:22→22:46)
[2022-05-12] MEDS: Ferrous Sulfate 325 MG TAB PO SCH (09:22)
[2022-05-12] MEDS: Aspirin 81 mg Enteric Coated Tablet PO SCH (09:22)
[2022-05-12] MEDS: Multivit, Therapeutic 1 TAB PO SCH (09:23)
[2022-05-12] MEDS: Amiodarone 200 MG TAB PO SCH (09:30)
[2022-05-12] MEDS ORDERED: Furosemide 20 MG/2 ML VIAL SLOW IVP SCH (10:00)
[2022-05-12] MEDS: HumaLOG 300 UNITS/3 ML VIAL SC PRN ×2 (10:41→22:48)
[2022-05-12 12:51] LABS: Bacteria/HPF 4+ HPF (None Seen); Bilirubin Negative (Negative); Blood, Urine 3+ (Negative); Clarity Turbid (Clear); Glucose, Urine (Dipstick) Normal (Negative); Ketone, Urine Negative (Negative); Leukocyte 500 Leu/uL (Negative); Nitrite Negative (Negative); Protein, Urine (Dipstick) 50 mg/dL (Neg-Trace); RBC/HPF Greater than 50 HPF (0-3); Specific Gravity, Urine 1.017 (1.002-1.036); Squamous Epithelial 0-3 HPF (0-3); Urobilinogen Normal mg/dL (Less than 2); WBC/HPF Greater than 50 HPF (0-3)
[2022-05-12 17:09] LABS: Hemoglobin 8.4 g/dL (12.0-16.0)
[2022-05-12] MEDS: cefTRIAXone\\ROCEPHIN 1 GM in Sodium Chloride 0.9% 100 ML IVPB SCH (18:02)
[2022-05-12] MEDS: Atorvastatin Calcium 40 MG TAB PO SCH (22:45)
[2022-05-12 22:48] LABS: Hemoglobin 8.7 g/dL (12.0-16.0)
[2022-05-13 06:45] LABS: Hemoglobin 8.5 g/dL (12.0-16.0); Mean Corpuscular HGB CONC 32.4 g/dL (32.0-36.0); Mean Corpuscular Hemoglobin 29.9 pg (27.0-31.0); Mean Corpuscular Volume 92.1 fl (78.0-98.0); Mean Platelet Volume 7.6 fL (7.4-10.4); Platelet Count 436 10x3/uL (130-400); RBC Distribution Width 16.2 % (11.5-14.5); Red Blood Cell (RBC) Count 2.84 mill/uL (4.20-5.40); White Blood Cell (WBC) Count 13.3 10x3/uL (4.8-10.8)
[2022-05-13 07:03] LABS: Anisocytosis SLIGHT = 6-15 cells (100X) (0-5/hpf); Band 1 % (5-11); Lymphocytes 15 % (21-51); MDiff Complete? YES; Monocytes 2 % (0-10); Neutrophil 82 % (42-75); Platelet Morphology Comment Appears Increased; Polychromasia MODERATE = 3-4 cells (100X) (0-2/hpf)
[2022-05-13 07:09] LABS: ALT (SGPT) 25 U/L (8-55); AST (SGOT) 28 U/L (5-34); Albumin 3.1 g/dL (3.4-4.8); Alkaline Phosphatase 90 U/L (40-110); Anion Gap 16 mmol/L (10-20); BUN (Urea Nitrogen) 40 mg/dL (9.8-20.1); Bilirubin, Total 0.3 mg/dL (0.2-1.2); Calc. Creatinine Clearance 27 mL/min (70-130); Calcium 8.8 mg/dL (7.8-10.44); Carbon Dioxide 21 mmol/L (23-31); Chloride 103 mmol/L (98-107); Estimated GFR 30; Globulin 3.4 g/dL (2.4-3.5); Glucose 98 mg/dL (83-110); Potassium 4.3 mmol/L (3.5-5.1); Protein, Total 6.5 g/dL (5.8-8.1); Sodium 136 mmol/L (136-145)
[2022-05-13] MEDS: Amiodarone 200 MG TAB PO SCH (08:14)
[2022-05-13] MEDS: Tamsulosin HCl 0.4 MG CAP PO SCH (08:14)
[2022-05-13] MEDS: Multivit, Therapeutic 1 TAB PO SCH (08:14)
[2022-05-13] MEDS: Aspirin 81 mg Enteric Coated Tablet PO SCH (08:14)
[2022-05-13] MEDS: Docusate 100 MG CAP PO SCH ×2 (08:14→20:32)
[2022-05-13] MEDS: Ferrous Sulfate 325 MG TAB PO SCH (08:14)
[2022-05-13] MEDS: oxyCODONE/Acetaminophen 5 mg/325 mg Tablet PO PRN ×2 (08:27→20:32)
[2022-05-13] MEDS ORDERED: Furosemide 20 MG/2 ML VIAL SLOW IVP SCH (09:15)
[2022-05-13 10:18] LABS: Hemoglobin 8.9 g/dL (12.0-16.0)
[2022-05-13] MEDS: cefTRIAXone\\ROCEPHIN 1 GM in Sodium Chloride 0.9% 100 ML IVPB SCH (18:28)
[2022-05-13] MEDS: Atorvastatin Calcium 40 MG TAB PO SCH (20:32)
[2022-05-14 08:20] LABS: ALT (SGPT) 18 U/L (8-55); AST (SGOT) 16 U/L (5-34); Albumin 3.1 g/dL (3.4-4.8); Alkaline Phosphatase 83 U/L (40-110); Anion Gap 13 mmol/L (10-20); BUN (Urea Nitrogen) 27 mg/dL (9.8-20.1); Bilirubin, Total 0.4 mg/dL (0.2-1.2); Calc. Creatinine Clearance 32 mL/min (70-130); Calcium 8.8 mg/dL (7.8-10.44); Carbon Dioxide 25 mmol/L (23-31); Chloride 101 mmol/L (98-107); Estimated GFR 38; Globulin 3.4 g/dL (2.4-3.5); Glucose 135 mg/dL (83-110); Potassium 4.1 mmol/L (3.5-5.1); Protein, Total 6.5 g/dL (5.8-8.1); Sodium 135 mmol/L (136-145)
[2022-05-14] MEDS: Amiodarone 200 MG TAB PO SCH (08:54)
[2022-05-14] MEDS: Tamsulosin HCl 0.4 MG CAP PO SCH (08:54)
[2022-05-14] MEDS: Aspirin 81 mg Enteric Coated Tablet PO SCH (08:54)
[2022-05-14] MEDS: oxyCODONE/Acetaminophen 5 mg/325 mg Tablet PO PRN ×2 (08:55→20:18)
[2022-05-14] MEDS: Furosemide 20 MG TAB PO SCH (08:55)
[2022-05-14] MEDS: Docusate 100 MG CAP PO SCH ×2 (08:55→20:17)
[2022-05-14] MEDS: Multivit, Therapeutic 1 TAB PO SCH (08:55)
[2022-05-14] MEDS: Ferrous Sulfate 325 MG TAB PO SCH (08:55)
[2022-05-14 12:14] LABS: #Basophils 0.1 thou/uL (0.0-0.2); #Eosinphils 0.5 thou/uL (0.0-0.7); #Lymphocytes 1.8 thou/uL (1.20-3.40); #Monocytes 0.8 thou/uL (0.11-0.59); #Neutrophils 7.9 thou/uL (1.40-6.50); %Basophils 0.9 % (0.0-1.0); %Eosinophils 4.6 % (0.0-10.0); %Lymphocytes 16.2 % (21.0-51.0); %Neutrophils 71.3 % (42.0-75.0); Mean Corpuscular HGB CONC 31.6 g/dL (32.0-36.0); Mean Corpuscular Hemoglobin 29.8 pg (27.0-31.0); Mean Corpuscular Volume 94.1 fl (78.0-98.0); Mean Platelet Volume 7.6 fL (7.4-10.4); Platelet Count 423 10x3/uL (130-400); RBC Distribution Width 15.9 % (11.5-14.5); Red Blood Cell (RBC) Count 3.01 mill/uL (4.20-5.40)
[2022-05-14] MEDS: cefTRIAXone\\ROCEPHIN 1 GM in Sodium Chloride 0.9% 100 ML IVPB SCH (18:09)
[2022-05-14] MEDS: Atorvastatin Calcium 40 MG TAB PO SCH (20:18)
[2022-05-14] MEDS: Acetaminophen 325 MG TAB PO PRN (20:18)
[2022-05-14] MEDS: HumaLOG 300 UNITS/3 ML VIAL SC PRN (20:19)
[2022-05-15] MEDS ORDERED: Meropenem 1 GM in Sodium Chloride 0.9% 100 ML IVPB SCH ×2 (07:15→07:30)
[2022-05-15] MEDS: Aspirin 81 mg Enteric Coated Tablet PO SCH (09:20)
[2022-05-15] MEDS: Ferrous Sulfate 325 MG TAB PO SCH (09:20)
[2022-05-15] MEDS: Amiodarone 200 MG TAB PO SCH (09:21)
[2022-05-15] MEDS: Docusate 100 MG CAP PO SCH ×2 (09:21→20:51)
[2022-05-15] MEDS: Multivit, Therapeutic 1 TAB PO SCH (09:21)
[2022-05-15] MEDS: Potassium Chloride 20 MEQ TAB PO SCH (09:21)
[2022-05-15] MEDS: Furosemide 20 MG TAB PO SCH (09:21)
[2022-05-15] MEDS: Tamsulosin HCl 0.4 MG CAP PO SCH (09:21)
[2022-05-15] MEDS: oxyCODONE/Acetaminophen 5 mg/325 mg Tablet PO PRN ×2 (09:22→20:51)
[2022-05-15] MEDS ORDERED: Meropenem 500 MG in Sodium Chloride 0.9% 100 ML IVPB SCH (16:00)
[2022-05-15 16:22] VITALS: BP 110/58
[2022-05-15] MEDS: Atorvastatin Calcium 40 MG TAB PO SCH (20:50)
[2022-05-15] MEDS: HumaLOG 300 UNITS/3 ML VIAL SC PRN (20:51)
[2022-05-16] MEDS ORDERED: Clopidogrel Bisulfate 300 MG TAB PO SCH (09:15)
[2022-05-16] MEDS: Aspirin 81 mg Enteric Coated Tablet PO SCH (09:36)
[2022-05-16] MEDS: Docusate 100 MG CAP PO SCH ×2 (09:36→20:48)
[2022-05-16] MEDS: Potassium Chloride 20 MEQ TAB PO SCH (09:36)
[2022-05-16] MEDS: Ferrous Sulfate 325 MG TAB PO SCH (09:36)
[2022-05-16] MEDS: Acetaminophen 325 MG TAB PO PRN (09:37)
[2022-05-16] MEDS: Tamsulosin HCl 0.4 MG CAP PO SCH (09:37)
[2022-05-16] MEDS: Amiodarone 200 MG TAB PO SCH (09:37)
[2022-05-16] MEDS: Multivit, Therapeutic 1 TAB PO SCH (09:37)
[2022-05-16] MEDS: Furosemide 20 MG TAB PO SCH (09:37)
[2022-05-16] MEDS: Atorvastatin Calcium 40 MG TAB PO SCH (20:48)
[2022-05-16] MEDS: oxyCODONE/Acetaminophen 5 mg/325 mg Tablet PO PRN (20:48)
[2022-05-16] MEDS: HumaLOG 300 UNITS/3 ML VIAL SC PRN (20:50)
[2022-05-17 07:24] VITALS: TEMP 98.5
[2022-05-17] MEDS: Amiodarone 200 MG TAB PO SCH (09:00)
[2022-05-17] MEDS ORDERED: Clopidogrel Bisulfate 75 MG TAB PO SCH (09:00)
[2022-05-17] MEDS: Aspirin 81 mg Enteric Coated Tablet PO SCH (09:00)
[2022-05-17] MEDS: Potassium Chloride 20 MEQ TAB PO SCH (09:00)
[2022-05-17] MEDS: Tamsulosin HCl 0.4 MG CAP PO SCH (09:00)
[2022-05-17] MEDS: Ferrous Sulfate 325 MG TAB PO SCH (09:01)
[2022-05-17] MEDS: Multivit, Therapeutic 1 TAB PO SCH (09:01)
[2022-05-17] MEDS: Furosemide 20 MG TAB PO SCH (09:01)
[2022-05-17] MEDS: Docusate 100 MG CAP PO SCH (09:01)
== END 2022-05-17 13:40 | disposition home or self-care (01) | DRG 280 ==
LOC: ERS 11:21 → IMCU/EMU 15:23 → ERHOLD 15:23 → IMCU/EMU 19:25
PROVIDERS: ADMIT Internal Medicine; ATTEND Internal Medicine
PROC: 30233N1 Transfusion of Nonautologous Red Blood Cells into Peripheral Vein, Percutaneous Approach (ICD-10-PCS; principal; 2022-05-12)
DX: I13.0 Hypertensive heart and chronic kidney disease with heart failure and stage 1 through stage 4 chronic kidney disease, or unspecified chronic kidney disease (principal); J96.01 Acute respiratory failure with hypoxia; I21.A1 Myocardial infarction type 2; J44.1 Chronic obstructive pulmonary disease with (acute) exacerbation; N17.9 Acute kidney failure, unspecified; D62 Acute posthemorrhagic anemia; N39.0 Urinary tract infection, site not specified; E87.20 Acidosis, unspecified; E78.5 Hyperlipidemia, unspecified; Z51.5 Encounter for palliative care; I25.10 Atherosclerotic heart disease of native coronary artery without angina pectoris; I48.0 Paroxysmal atrial fibrillation; N18.30 Chronic kidney disease, stage 3 unspecified; E11.22 Type 2 diabetes mellitus with diabetic chronic kidney disease; E11.51 Type 2 diabetes mellitus with diabetic peripheral angiopathy without gangrene; D63.1 Anemia in chronic kidney disease; R33.9 Retention of urine, unspecified; R53.81 Other malaise; E11.40 Type 2 diabetes mellitus with diabetic neuropathy, unspecified; R79.89 Other specified abnormal findings of blood chemistry; R31.0 Gross hematuria; I25.5 Ischemic cardiomyopathy; E87.5 Hyperkalemia; K76.1 Chronic passive congestion of liver; Z96.642 Presence of left artificial hip joint; Z88.6 Allergy status to analgesic agent; Z88.5 Allergy status to narcotic agent; Z98.890 Other specified postprocedural states; Z79.82 Long term (current) use of aspirin; Z95.828 Presence of other vascular implants and grafts; Z87.891 Personal history of nicotine dependence; Z79.899 Other long term (current) drug therapy
CPT/HCPCS: 36415; 36416; 36430; 71045; 74176; 76770; 80053; 81001; 82010; 82274; 82553; 82805; 83605; 83735; 83880; 84484; 85025; 85610; 85730; 86850; 86900; 86901; 87040; 87077; 87086; 87186; 87633; 93005; C9113; J0696; J1815; J1940; J1956; J2185; J3490; P9016

== ENCOUNTER 2022-09-01 10:59 | Inpatient (IN) | payer MEDICARE ==
[2022-09-01] MEDS ORDERED: Ondansetron PF 4 MG/2 ML Vial ONE (11:49)
[2022-09-01] MEDS ORDERED: Morphine 4 MG/ML VIAL ONE (11:49)
[2022-09-01] MEDS ORDERED: Ondansetron PF 4 MG/2 ML Vial IVP PRN (12:09)
[2022-09-01] MEDS ORDERED: Acetaminophen 325 MG TAB PO PRN (12:09)
[2022-09-01] MEDS ORDERED: Ipratropium/Albuterol 3 ML NEB NEB PRN (12:09)
[2022-09-01] MEDS ORDERED: Sodium Chloride 0.9% 1,000 ML IV SCH (12:15)
[2022-09-01 12:30] LABS: #Basophils 0.1 thou/uL (0.0-0.2); #Eosinphils 0.3 thou/uL (0.0-0.7); #Lymphocytes 1.7 thou/uL (1.20-3.40); #Monocytes 0.7 thou/uL (0.11-0.59); #Neutrophils 5.3 thou/uL (1.40-6.50); %Basophils 1.4 % (0.0-1.0); %Eosinophils 3.8 % (0.0-10.0); %Lymphocytes 20.6 % (21.0-51.0); %Monocytes 8.9 % (0.0-10.0); %Neutrophils 65.3 % (42.0-75.0); Hemoglobin 9.7 g/dL (12.0-16.0); Mean Corpuscular HGB CONC 31.7 g/dL (32.0-36.0); Mean Corpuscular Hemoglobin 28.9 pg (27.0-31.0); Mean Corpuscular Volume 91.1 fl (78.0-98.0); Mean Platelet Volume 8.2 fL (7.4-10.4); Platelet Count 323 10x3/uL (130-400); RBC Distribution Width 16.3 % (11.5-14.5); Red Blood Cell (RBC) Count 3.36 mill/uL (4.20-5.40); White Blood Cell (WBC) Count 8.1 10x3/uL (4.8-10.8)
[2022-09-01 12:49] LABS: ALT (SGPT) 22 U/L (8-55); AST (SGOT) 36 U/L (5-34); Albumin 3.3 g/dL (3.4-4.8); Alkaline Phosphatase 169 U/L (40-110); Anion Gap 20 mmol/L (10-20); BUN (Urea Nitrogen) 54 mg/dL (9.8-20.1); Bilirubin, Total 0.6 mg/dL (0.2-1.2); Calc. Creatinine Clearance 0 mL/min (70-130); Calcium 8.9 mg/dL (7.8-10.44); Carbon Dioxide 21 mmol/L (23-31); Chloride 96 mmol/L (98-107); Estimated GFR 23; Globulin 3.5 g/dL (2.4-3.5); Glucose 119 mg/dL (83-110); Potassium 3.7 mmol/L (3.5-5.1); Protein, Total 6.8 g/dL (5.8-8.1); Sodium 133 mmol/L (136-145)
[2022-09-01 13:11] LABS: CKMB 1.6 ng/mL (0-6.6)
[2022-09-01 14:50] VITALS: BMI 29.2
[2022-09-01] MEDS ORDERED: Furosemide 20 MG/2 ML VIAL SLOW IVP SCH (15:00)
[2022-09-01] MEDS ORDERED: Benzonatate 100 MG CAP PO PRN (16:42)
[2022-09-01] MEDS ORDERED: Dextrose 50% Abboject 50 ML SYRINGE SLOW IVP PRN (18:02)
[2022-09-01] MEDS ORDERED: Dextrose 5% in Water 1,000 ML IV PRN (18:02)
[2022-09-01] MEDS ORDERED: HumaLOG 300 UNITS/3 ML VIAL SC PRN (18:02)
[2022-09-01] MEDS ORDERED: Albuterol 2.5 MG/0.5 ML NEB NEB SCH (18:30)
[2022-09-01] MEDS: Gabapentin 300 MG CAP PO SCH (20:56)
[2022-09-01] MEDS: Senokot S 8.6-50 MG TAB PO SCH (20:57)
[2022-09-01] MEDS: Docusate 100 MG CAP PO SCH (20:57)
[2022-09-01] MEDS: Acetaminophen/Codeine 30-300mg Tablet PO PRN (20:59)
[2022-09-01] MEDS ORDERED: Furosemide 20 MG TAB PO SCH (21:00)
[2022-09-01] MEDS ORDERED: Famotidine/PF 20 mg/2ml Vial SLOW IVP SCH (21:00)
[2022-09-01] MEDS: Cyclobenzaprine 10 MG TAB PO PRN (21:00)
[2022-09-02] MEDS ORDERED: Albuterol 200 PUFF (6.7GM INHALER) INH PRN (04:12)
[2022-09-02] MEDS ORDERED: Ipratropium 200 Puff Oral Inhaler INH PRN (04:13)
[2022-09-02] MEDS: Furosemide 40 MG/4 ML VIAL IVP SCH ×2 (06:43→13:08)
[2022-09-02] MEDS: Rosuvastatin 10 MG TAB PO SCH (08:38)
[2022-09-02] MEDS: Tamsulosin HCl 0.4 MG CAP PO SCH (08:38)
[2022-09-02] MEDS: Amiodarone 200 MG TAB PO SCH (08:38)
[2022-09-02] MEDS: Polyethylene Glycol 3350 17 GM Packet PO SCH (08:38)
[2022-09-02] MEDS: Gabapentin 300 MG CAP PO SCH ×2 (08:38→21:05)
[2022-09-02] MEDS: Docusate 100 MG CAP PO SCH ×2 (08:38→21:07)
[2022-09-02] MEDS: Senokot S 8.6-50 MG TAB PO SCH ×2 (08:39→21:07)
[2022-09-02] MEDS: Acetaminophen/Codeine 30-300mg Tablet PO PRN (08:49)
[2022-09-02 11:18] LABS: Hemoglobin 11.1 g/dL (12.0-16.0); Mean Corpuscular HGB CONC 30.9 g/dL (32.0-36.0); Mean Corpuscular Hemoglobin 28.2 pg (27.0-31.0); Mean Corpuscular Volume 91.1 fl (78.0-98.0); Mean Platelet Volume 8.2 fL (7.4-10.4); Platelet Count 300 10x3/uL (130-400); RBC Distribution Width 16.7 % (11.5-14.5); Red Blood Cell (RBC) Count 3.95 mill/uL (4.20-5.40)
[2022-09-02 11:19] LABS: #Eosinphils 0.4 thou/uL (0.0-0.7); #Lymphocytes 1.8 thou/uL (1.20-3.40); #Monocytes 0.7 thou/uL (0.11-0.59); #Neutrophils 6.2 thou/uL (1.40-6.50); %Lymphocytes 19.7 % (21.0-51.0); %Monocytes 7.3 % (0.0-10.0)
[2022-09-02 12:04] LABS: Anion Gap 22 mmol/L (10-20); BUN (Urea Nitrogen) 52 mg/dL (9.8-20.1); Calc. Creatinine Clearance 24 mL/min (70-130); Calcium 8.8 mg/dL (7.8-10.44); Carbon Dioxide 17 mmol/L (23-31); Chloride 95 mmol/L (98-107); Estimated GFR 24; Glucose 143 mg/dL (83-110); Magnesium 2.3 mg/dL (1.6-2.6); Potassium 3.8 mmol/L (3.5-5.1); Sodium 130 mmol/L (136-145)
[2022-09-02 12:12] LABS: Phosphorus 4.9 mg/dL (2.3-4.7)
[2022-09-02] MEDS: Morphine 2 MG/ML VIAL SLOW IVP PRN (13:08)
[2022-09-02] MEDS: Albuterol 200 PUFF (6.7GM INHALER) INH SCH ×3 (18:21→19:19)
[2022-09-03 05:17] LABS: #Basophils 0.1 thou/uL (0.0-0.2); #Eosinphils 0.3 thou/uL (0.0-0.7); #Monocytes 1.2 thou/uL (0.11-0.59); #Neutrophils 4.4 thou/uL (1.40-6.50); %Basophils 0.9 % (0.0-1.0); %Eosinophils 3.8 % (0.0-10.0); %Lymphocytes 25.5 % (21.0-51.0); %Monocytes 14.6 % (0.0-10.0); %Neutrophils 55.2 % (42.0-75.0); Hemoglobin 10.1 g/dL (12.0-16.0); Mean Corpuscular HGB CONC 30.9 g/dL (32.0-36.0); Mean Corpuscular Hemoglobin 28.2 pg (27.0-31.0); Mean Corpuscular Volume 91.3 fl (78.0-98.0); Mean Platelet Volume 8.4 fL (7.4-10.4); Platelet Count 293 10x3/uL (130-400); RBC Distribution Width 16.6 % (11.5-14.5); Red Blood Cell (RBC) Count 3.58 mill/uL (4.20-5.40); White Blood Cell (WBC) Count 7.9 10x3/uL (4.8-10.8)
[2022-09-03 05:21] LABS: Anion Gap 16 mmol/L (10-20); BUN (Urea Nitrogen) 53 mg/dL (9.8-20.1); Calc. Creatinine Clearance 22 mL/min (70-130); Calcium 8.7 mg/dL (7.8-10.44); Carbon Dioxide 24 mmol/L (23-31); Chloride 94 mmol/L (98-107); Estimated GFR 21; Glucose 140 mg/dL (83-110); Magnesium 2.3 mg/dL (1.6-2.6); Phosphorus 5.2 mg/dL (2.3-4.7); Potassium 4.2 mmol/L (3.5-5.1); Sodium 130 mmol/L (136-145)
[2022-09-03] MEDS: Albuterol 200 PUFF (6.7GM INHALER) INH SCH ×3 (06:48→18:50)
[2022-09-03] MEDS: Tamsulosin HCl 0.4 MG CAP PO SCH (08:21)
[2022-09-03] MEDS: Gabapentin 300 MG CAP PO SCH ×2 (08:21→20:21)
[2022-09-03] MEDS: Acetaminophen/Codeine 30-300mg Tablet PO PRN ×2 (08:21→20:23)
[2022-09-03] MEDS: Amiodarone 200 MG TAB PO SCH (08:22)
[2022-09-03] MEDS: Rosuvastatin 10 MG TAB PO SCH (08:22)
[2022-09-03] MEDS: Docusate 100 MG CAP PO SCH ×2 (08:22→20:24)
[2022-09-03] MEDS: Polyethylene Glycol 3350 17 GM Packet PO SCH (08:22)
[2022-09-03] MEDS: Senokot S 8.6-50 MG TAB PO SCH ×2 (08:22→20:24)
[2022-09-03] MEDS: Famotidine 20 MG TAB PO SCH (09:18)
[2022-09-03] MEDS: Furosemide 20 MG/2 ML VIAL SLOW IVP SCH (14:34)
[2022-09-03] MEDS ORDERED: Famotidine/PF 20 mg/2ml Vial SLOW IVP SCH (21:00)
[2022-09-04] MEDS: Acetaminophen/Codeine 30-300mg Tablet PO PRN (03:04)
[2022-09-04] MEDS: Furosemide 20 MG/2 ML VIAL SLOW IVP SCH ×2 (05:41→15:10)
[2022-09-04 05:47] LABS: #Basophils 0.1 thou/uL (0.0-0.2); #Eosinphils 0.5 thou/uL (0.0-0.7); #Lymphocytes 2.3 thou/uL (1.20-3.40); #Neutrophils 5.4 thou/uL (1.40-6.50); %Basophils 0.6 % (0.0-1.0); %Eosinophils 5.6 % (0.0-10.0); %Monocytes 10.6 % (0.0-10.0); %Neutrophils 58.2 % (42.0-75.0); Hemoglobin 10.4 g/dL (12.0-16.0); Mean Corpuscular HGB CONC 31.4 g/dL (32.0-36.0); Mean Corpuscular Hemoglobin 28.3 pg (27.0-31.0); Mean Corpuscular Volume 90.2 fl (78.0-98.0); Mean Platelet Volume 8.4 fL (7.4-10.4); Platelet Count 289 10x3/uL (130-400); RBC Distribution Width 16.7 % (11.5-14.5); Red Blood Cell (RBC) Count 3.69 mill/uL (4.20-5.40); White Blood Cell (WBC) Count 9.2 10x3/uL (4.8-10.8)
[2022-09-04 06:18] LABS: Anion Gap 18 mmol/L (10-20); BUN (Urea Nitrogen) 52 mg/dL (9.8-20.1); Calc. Creatinine Clearance 25 mL/min (70-130); Calcium 8.7 mg/dL (7.8-10.44); Carbon Dioxide 23 mmol/L (23-31); Chloride 94 mmol/L (98-107); Estimated GFR 24; Glucose 122 mg/dL (83-110); Magnesium 2.3 mg/dL (1.6-2.6); Phosphorus 3.8 mg/dL (2.3-4.7); Potassium 3.5 mmol/L (3.5-5.1); Sodium 131 mmol/L (136-145)
[2022-09-04] MEDS: Albuterol 200 PUFF (6.7GM INHALER) INH SCH ×3 (07:08→18:25)
[2022-09-04] MEDS ORDERED: Acetaminophen/Codeine 30-300mg Tablet PO SCH (09:00)
[2022-09-04] MEDS ORDERED: Acetaminophen 325 MG TAB PO SCH (09:00)
[2022-09-04] MEDS: Famotidine 20 MG TAB PO SCH (10:08)
[2022-09-04] MEDS: Tamsulosin HCl 0.4 MG CAP PO SCH (10:08)
[2022-09-04] MEDS: Gabapentin 300 MG CAP PO SCH ×2 (10:10→21:05)
[2022-09-04] MEDS: Rosuvastatin 10 MG TAB PO SCH (10:10)
[2022-09-04] MEDS: Amiodarone 200 MG TAB PO SCH (10:10)
[2022-09-04] MEDS: Docusate 100 MG CAP PO SCH ×2 (10:11→21:05)
[2022-09-04] MEDS: Polyethylene Glycol 3350 17 GM Packet PO SCH (10:11)
[2022-09-04] MEDS: Heparin 5,000 UNITS/ML VIAL SC SCH ×2 (10:11→21:05)
[2022-09-04] MEDS: Senokot S 8.6-50 MG TAB PO SCH ×2 (10:11→21:04)
[2022-09-04] MEDS: Acetaminophen/Codeine 30-300mg Tablet PO SCH ×2 (15:10→22:51)
[2022-09-05] MEDS: Furosemide 20 MG/2 ML VIAL SLOW IVP SCH ×2 (06:12→15:50)
[2022-09-05] MEDS: Acetaminophen/Codeine 30-300mg Tablet PO SCH ×4 (06:12→20:25)
[2022-09-05] MEDS: Albuterol 200 PUFF (6.7GM INHALER) INH SCH ×3 (07:45→20:12)
[2022-09-05] MEDS ORDERED: Non-Formulary Item 1 EACH (Ferrous Sulfate [Ferrous Sulfate] 325 MG Tab) PO SCH (09:00)
[2022-09-05] MEDS: Ferrous Sulfate 325 MG TAB PO SCH (09:35)
[2022-09-05] MEDS: Senokot S 8.6-50 MG TAB PO SCH ×2 (09:35→20:26)
[2022-09-05] MEDS: Docusate 100 MG CAP PO SCH ×2 (09:35→20:26)
[2022-09-05] MEDS: Tamsulosin HCl 0.4 MG CAP PO SCH (09:36)
[2022-09-05] MEDS: Amiodarone 200 MG TAB PO SCH (09:36)
[2022-09-05] MEDS: Rosuvastatin 10 MG TAB PO SCH (09:37)
[2022-09-05] MEDS: Clopidogrel Bisulfate 75 MG TAB PO SCH (09:37)
[2022-09-05] MEDS: Heparin 5,000 UNITS/ML VIAL SC SCH ×2 (09:37→20:26)
[2022-09-05] MEDS: Gabapentin 300 MG CAP PO SCH ×2 (09:37→20:26)
[2022-09-05] MEDS: Famotidine 20 MG TAB PO SCH (09:37)
[2022-09-05] MEDS: Polyethylene Glycol 3350 17 GM Packet PO SCH (09:38)
[2022-09-06] MEDS: Acetaminophen/Codeine 30-300mg Tablet PO SCH ×4 (05:27→22:22)
[2022-09-06 06:08] LABS: Anion Gap 14 mmol/L (10-20); BUN (Urea Nitrogen) 39 mg/dL (9.8-20.1); Calc. Creatinine Clearance 31 mL/min (70-130); Calcium 8.7 mg/dL (7.8-10.44); Carbon Dioxide 28 mmol/L (23-31); Chloride 95 mmol/L (98-107); Estimated GFR 31; Glucose 137 mg/dL (83-110); Magnesium 1.9 mg/dL (1.6-2.6); Phosphorus 3.9 mg/dL (2.3-4.7); Sodium 134 mmol/L (136-145)
[2022-09-06] MEDS: Albuterol 200 PUFF (6.7GM INHALER) INH SCH ×3 (07:21→20:28)
[2022-09-06] MEDS ORDERED: Potassium Chloride 20 MEQ TAB PO SCH (08:15)
[2022-09-06] MEDS ORDERED: Potassium Phosphate 30 MMOL in Sodium Chloride 0.9% 250 ML 250 ML IVPB SCH (08:30)
[2022-09-06] MEDS: Morphine 2 MG/ML VIAL SLOW IVP PRN ×2 (09:26→22:23)
[2022-09-06] MEDS: Tamsulosin HCl 0.4 MG CAP PO SCH (09:27)
[2022-09-06] MEDS: Docusate 100 MG CAP PO SCH ×2 (09:27→22:22)
[2022-09-06] MEDS: Senokot S 8.6-50 MG TAB PO SCH ×2 (09:27→22:23)
[2022-09-06] MEDS: Ferrous Sulfate 325 MG TAB PO SCH (09:27)
[2022-09-06] MEDS: Amiodarone 200 MG TAB PO SCH (09:27)
[2022-09-06] MEDS: Polyethylene Glycol 3350 17 GM Packet PO SCH (09:27)
[2022-09-06] MEDS: Heparin 5,000 UNITS/ML VIAL SC SCH (09:27)
[2022-09-06] MEDS: Furosemide 20 MG TAB PO SCH ×2 (09:27→15:03)
[2022-09-06] MEDS: Clopidogrel Bisulfate 75 MG TAB PO SCH (09:27)
[2022-09-06] MEDS: Rosuvastatin 10 MG TAB PO SCH (09:28)
[2022-09-06] MEDS: Famotidine 20 MG TAB PO SCH (09:28)
[2022-09-06] MEDS: Gabapentin 300 MG CAP PO SCH ×2 (09:28→22:23)
[2022-09-07] MEDS: Acetaminophen/Codeine 30-300mg Tablet PO SCH ×4 (05:43→21:04)
[2022-09-07] MEDS: Docusate 100 MG CAP PO SCH ×2 (08:08→20:37)
[2022-09-07] MEDS: Amiodarone 200 MG TAB PO SCH (08:08)
[2022-09-07] MEDS: Gabapentin 300 MG CAP PO SCH ×2 (08:08→20:38)
[2022-09-07] MEDS: Polyethylene Glycol 3350 17 GM Packet PO SCH (08:08)
[2022-09-07] MEDS: Senokot S 8.6-50 MG TAB PO SCH ×2 (08:08→20:37)
[2022-09-07] MEDS: Furosemide 20 MG TAB PO SCH ×2 (08:08→14:59)
[2022-09-07] MEDS: Famotidine 20 MG TAB PO SCH (08:08)
[2022-09-07] MEDS: Ferrous Sulfate 325 MG TAB PO SCH (08:08)
[2022-09-07] MEDS: Rosuvastatin 10 MG TAB PO SCH (08:08)
[2022-09-07] MEDS: Tamsulosin HCl 0.4 MG CAP PO SCH (08:08)
[2022-09-07] MEDS: Clopidogrel Bisulfate 75 MG TAB PO SCH (08:08)
[2022-09-07] MEDS: Albuterol 200 PUFF (6.7GM INHALER) INH SCH ×3 (08:29→18:37)
[2022-09-07] MEDS: Heparin 5,000 UNITS/ML VIAL SC SCH ×2 (09:40→20:38)
[2022-09-07] MEDS: Morphine 2 MG/ML VIAL SLOW IVP PRN (21:04)
[2022-09-08] MEDS: Acetaminophen/Codeine 30-300mg Tablet PO SCH ×4 (04:56→21:17)
[2022-09-08] MEDS ORDERED: Communication Order-Pharmacy FS PRN (06:50)
[2022-09-08] MEDS ORDERED: Ipratropium 200 Puff Oral Inhaler INH PRN (09:00)
[2022-09-08] MEDS: Furosemide 20 MG TAB PO SCH ×2 (09:08→15:18)
[2022-09-08] MEDS: Famotidine 20 MG TAB PO SCH (09:08)
[2022-09-08] MEDS: Tamsulosin HCl 0.4 MG CAP PO SCH (09:08)
[2022-09-08] MEDS: Ferrous Sulfate 325 MG TAB PO SCH (09:08)
[2022-09-08] MEDS: Amiodarone 200 MG TAB PO SCH (09:08)
[2022-09-08] MEDS: Gabapentin 300 MG CAP PO SCH ×2 (09:08→21:17)
[2022-09-08] MEDS: Rosuvastatin 10 MG TAB PO SCH (09:08)
[2022-09-08] MEDS: Docusate 100 MG CAP PO SCH ×2 (09:09→21:08)
[2022-09-08] MEDS: Senokot S 8.6-50 MG TAB PO SCH ×2 (09:09→21:08)
[2022-09-08] MEDS: Polyethylene Glycol 3350 17 GM Packet PO SCH (09:09)
[2022-09-08] MEDS: Albuterol 200 PUFF (6.7GM INHALER) INH SCH ×3 (10:38→19:25)
[2022-09-08] MEDS: Clopidogrel Bisulfate 75 MG TAB PO SCH (11:33)
[2022-09-08] MEDS: Heparin 5,000 UNITS/ML VIAL SC SCH ×2 (11:33→21:17)
[2022-09-08] MEDS: Morphine 2 MG/ML VIAL SLOW IVP PRN (21:17)
[2022-09-09] MEDS: Acetaminophen/Codeine 30-300mg Tablet PO SCH ×2 (04:57→20:38)
[2022-09-09] MEDS: Albuterol 200 PUFF (6.7GM INHALER) INH SCH (08:26)
[2022-09-09] MEDS: Cyclobenzaprine 10 MG TAB PO PRN (09:12)
[2022-09-09] MEDS: Ferrous Sulfate 325 MG TAB PO SCH (09:12)
[2022-09-09] MEDS ORDERED: Ondansetron PF 4 MG/2 ML Vial IVP PRN (19:46)
[2022-09-09] MEDS ORDERED: Dextrose 50% Abboject 50 ML SYRINGE SLOW IVP PRN (19:47)
[2022-09-09] MEDS ORDERED: Benzonatate 100 MG CAP PO PRN (19:47)
[2022-09-09] MEDS ORDERED: Dextrose 5% in Water 1,000 ML IV PRN (19:48)
[2022-09-09] MEDS ORDERED: Albuterol 200 PUFF (6.7GM INHALER) INH PRN (19:48)
[2022-09-09] MEDS ORDERED: Morphine 2 MG/ML VIAL SLOW IVP PRN (19:49)
[2022-09-09] MEDS ORDERED: Ipratropium 200 Puff Oral Inhaler INH PRN (19:49)
[2022-09-09] MEDS: Docusate 100 MG CAP PO SCH (20:39)
[2022-09-09] MEDS: Heparin 5,000 UNITS/ML VIAL SC SCH (20:39)
[2022-09-09] MEDS: Gabapentin 300 MG CAP PO SCH (20:40)
[2022-09-09] MEDS: Senokot S 8.6-50 MG TAB PO SCH (20:40)
[2022-09-10] MEDS: Acetaminophen/Codeine 30-300mg Tablet PO SCH ×4 (02:30→20:41)
[2022-09-10] MEDS: Albuterol 200 PUFF (6.7GM INHALER) INH SCH ×3 (07:43→18:27)
[2022-09-10] MEDS: Senokot S 8.6-50 MG TAB PO SCH ×2 (09:12→20:42)
[2022-09-10] MEDS: Polyethylene Glycol 3350 17 GM Packet PO SCH (09:12)
[2022-09-10] MEDS: Docusate 100 MG CAP PO SCH ×2 (09:12→20:42)
[2022-09-10] MEDS: Aspirin 81 mg Enteric Coated Tablet PO SCH (09:13)
[2022-09-10] MEDS: Ferrous Sulfate 325 MG TAB PO SCH (09:13)
[2022-09-10] MEDS: Amiodarone 200 MG TAB PO SCH (09:14)
[2022-09-10] MEDS: Tamsulosin HCl 0.4 MG CAP PO SCH (09:14)
[2022-09-10] MEDS: Rosuvastatin 10 MG TAB PO SCH (09:14)
[2022-09-10] MEDS: Furosemide 20 MG TAB PO SCH ×2 (09:14→13:54)
[2022-09-10] MEDS: Famotidine 20 MG TAB PO SCH (09:14)
[2022-09-10] MEDS: Heparin 5,000 UNITS/ML VIAL SC SCH ×2 (09:15→20:42)
[2022-09-10] MEDS: Gabapentin 300 MG CAP PO SCH ×2 (09:15→20:40)
[2022-09-10] MEDS: Cyclobenzaprine 10 MG TAB PO PRN (17:28)
[2022-09-10] MEDS: HumaLOG 300 UNITS/3 ML VIAL SC PRN (17:33)
[2022-09-11] MEDS: Acetaminophen/Codeine 30-300mg Tablet PO SCH ×4 (02:21→20:46)
[2022-09-11] MEDS: Albuterol 200 PUFF (6.7GM INHALER) INH SCH ×3 (06:30→18:42)
[2022-09-11 07:34] LABS: Anion Gap 18 mmol/L (10-20); BUN (Urea Nitrogen) 31 mg/dL (9.8-20.1); Calc. Creatinine Clearance 32 mL/min (70-130); Calcium 9.2 mg/dL (7.8-10.44); Carbon Dioxide 19 mmol/L (23-31); Chloride 99 mmol/L (98-107); Estimated GFR 31; Glucose 136 mg/dL (83-110); Magnesium 1.8 mg/dL (1.6-2.6); Phosphorus 4.3 mg/dL (2.3-4.7); Potassium 3.4 mmol/L (3.5-5.1); Sodium 133 mmol/L (136-145)
[2022-09-11] MEDS: Aspirin 81 mg Enteric Coated Tablet PO SCH (08:08)
[2022-09-11] MEDS: Senokot S 8.6-50 MG TAB PO SCH ×2 (08:08→20:45)
[2022-09-11] MEDS: Docusate 100 MG CAP PO SCH ×2 (08:10→20:45)
[2022-09-11] MEDS: Famotidine 20 MG TAB PO SCH (08:10)
[2022-09-11] MEDS: Furosemide 20 MG TAB PO SCH ×2 (08:11→13:28)
[2022-09-11] MEDS: Rosuvastatin 10 MG TAB PO SCH (08:11)
[2022-09-11] MEDS: Gabapentin 300 MG CAP PO SCH ×2 (08:11→20:46)
[2022-09-11] MEDS: Amiodarone 200 MG TAB PO SCH (08:12)
[2022-09-11] MEDS: Ferrous Sulfate 325 MG TAB PO SCH (08:13)
[2022-09-11] MEDS: Tamsulosin HCl 0.4 MG CAP PO SCH (08:14)
[2022-09-11] MEDS: Heparin 5,000 UNITS/ML VIAL SC SCH ×2 (08:15→20:45)
[2022-09-11] MEDS ORDERED: Potassium Chloride 40 MEQ, Magnesium Sulfate 2 GM in Sodium Chloride 0.9% 250 ML 250 ML IVPB SCH (09:45)
[2022-09-11 10:05] LABS: #Basophils 0.1 thou/uL (0.0-0.2); #Eosinphils 0.2 thou/uL (0.0-0.7); #Lymphocytes 0.9 thou/uL (1.20-3.40); #Monocytes 0.8 thou/uL (0.11-0.59); #Neutrophils 11.9 thou/uL (1.40-6.50); %Basophils 0.5 % (0.0-1.0); %Eosinophils 1.7 % (0.0-10.0); %Lymphocytes 6.7 % (21.0-51.0); %Monocytes 5.6 % (0.0-10.0); %Neutrophils 85.4 % (42.0-75.0); Hemoglobin 10.4 g/dL (12.0-16.0); Mean Corpuscular HGB CONC 30.2 g/dL (32.0-36.0); Mean Corpuscular Hemoglobin 26.7 pg (27.0-31.0); Mean Corpuscular Volume 88.3 fl (78.0-98.0); Platelet Count 361 10x3/uL (130-400); RBC Distribution Width 17.8 % (11.5-14.5); Red Blood Cell (RBC) Count 3.88 mill/uL (4.20-5.40); White Blood Cell (WBC) Count 13.9 10x3/uL (4.8-10.8)
[2022-09-11] MEDS: Polyethylene Glycol 3350 17 GM Packet PO SCH (10:25)
[2022-09-11] MEDS: HumaLOG 300 UNITS/3 ML VIAL SC PRN (17:03)
[2022-09-12] MEDS: Acetaminophen/Codeine 30-300mg Tablet PO SCH ×4 (02:14→21:29)
[2022-09-12] MEDS: Albuterol 200 PUFF (6.7GM INHALER) INH SCH ×3 (06:33→19:32)
[2022-09-12] MEDS: Ferrous Sulfate 325 MG TAB PO SCH (08:22)
[2022-09-12] MEDS: Amiodarone 200 MG TAB PO SCH (08:22)
[2022-09-12] MEDS: Rosuvastatin 10 MG TAB PO SCH (08:22)
[2022-09-12] MEDS: Famotidine 20 MG TAB PO SCH (08:22)
[2022-09-12] MEDS: Tamsulosin HCl 0.4 MG CAP PO SCH (08:22)
[2022-09-12] MEDS: Furosemide 20 MG TAB PO SCH ×2 (08:22→13:50)
[2022-09-12] MEDS: Docusate 100 MG CAP PO SCH ×2 (08:23→21:29)
[2022-09-12] MEDS: Aspirin 81 mg Enteric Coated Tablet PO SCH (08:23)
[2022-09-12] MEDS: Polyethylene Glycol 3350 17 GM Packet PO SCH (08:24)
[2022-09-12] MEDS: Senokot S 8.6-50 MG TAB PO SCH ×2 (08:24→21:30)
[2022-09-12] MEDS: Heparin 5,000 UNITS/ML VIAL SC SCH ×2 (08:25→21:29)
[2022-09-12] MEDS: Gabapentin 300 MG CAP PO SCH ×2 (08:25→21:29)
[2022-09-13] MEDS: Acetaminophen/Codeine 30-300mg Tablet PO SCH ×4 (01:00→22:02)
[2022-09-13] MEDS: Albuterol 200 PUFF (6.7GM INHALER) INH SCH ×3 (07:38→19:06)
[2022-09-13 09:38] LABS: Anion Gap 18 mmol/L (10-20); BUN (Urea Nitrogen) 34 mg/dL (9.8-20.1); Calc. Creatinine Clearance 35 mL/min (70-130); Calcium 9.1 mg/dL (7.8-10.44); Carbon Dioxide 18 mmol/L (23-31); Chloride 100 mmol/L (98-107); Estimated GFR 35; Glucose 104 mg/dL (83-110); Magnesium 2.1 mg/dL (1.6-2.6); Phosphorus 4.6 mg/dL (2.3-4.7); Potassium 4.9 mmol/L (3.5-5.1); Sodium 131 mmol/L (136-145)
[2022-09-13] MEDS: Tamsulosin HCl 0.4 MG CAP PO SCH (10:43)
[2022-09-13] MEDS: Famotidine 20 MG TAB PO SCH (10:43)
[2022-09-13] MEDS: Furosemide 20 MG TAB PO SCH ×2 (10:44→15:03)
[2022-09-13] MEDS: Polyethylene Glycol 3350 17 GM Packet PO SCH (10:44)
[2022-09-13] MEDS: Aspirin 81 mg Enteric Coated Tablet PO SCH (10:44)
[2022-09-13] MEDS: Gabapentin 300 MG CAP PO SCH ×2 (10:44→22:04)
[2022-09-13] MEDS: Rosuvastatin 10 MG TAB PO SCH (10:44)
[2022-09-13] MEDS: Amiodarone 200 MG TAB PO SCH (10:44)
[2022-09-13] MEDS: Senokot S 8.6-50 MG TAB PO SCH ×2 (10:45→22:04)
[2022-09-13] MEDS: Docusate 100 MG CAP PO SCH ×2 (10:45→22:04)
[2022-09-13] MEDS: Heparin 5,000 UNITS/ML VIAL SC SCH ×2 (10:47→22:02)
[2022-09-13] MEDS: Ferrous Sulfate 325 MG TAB PO SCH (10:47)
[2022-09-13] MEDS: HumaLOG 300 UNITS/3 ML VIAL SC PRN (17:11)
[2022-09-13] MEDS: Cyclobenzaprine 10 MG TAB PO PRN (22:04)
[2022-09-14] MEDS: Acetaminophen/Codeine 30-300mg Tablet PO SCH ×4 (03:30→20:59)
[2022-09-14] MEDS: Albuterol 200 PUFF (6.7GM INHALER) INH SCH ×3 (09:15→19:25)
[2022-09-14] MEDS: Polyethylene Glycol 3350 17 GM Packet PO SCH (09:37)
[2022-09-14] MEDS: Gabapentin 300 MG CAP PO SCH ×2 (09:37→21:00)
[2022-09-14] MEDS: Amiodarone 200 MG TAB PO SCH (09:38)
[2022-09-14] MEDS: Furosemide 20 MG TAB PO SCH ×2 (09:38→14:16)
[2022-09-14] MEDS: Aspirin 81 mg Enteric Coated Tablet PO SCH (09:38)
[2022-09-14] MEDS: Rosuvastatin 10 MG TAB PO SCH (09:38)
[2022-09-14] MEDS: Tamsulosin HCl 0.4 MG CAP PO SCH (09:38)
[2022-09-14] MEDS: Heparin 5,000 UNITS/ML VIAL SC SCH ×2 (09:39→21:01)
[2022-09-14] MEDS: Famotidine 20 MG TAB PO SCH (09:40)
[2022-09-14] MEDS: Docusate 100 MG CAP PO SCH ×2 (09:40→21:02)
[2022-09-14] MEDS: Senokot S 8.6-50 MG TAB PO SCH ×2 (09:40→21:01)
[2022-09-14] MEDS: Ferrous Sulfate 325 MG TAB PO SCH (14:18)
[2022-09-14] MEDS: Cyclobenzaprine 10 MG TAB PO PRN (21:01)
[2022-09-15] MEDS: Acetaminophen/Codeine 30-300mg Tablet PO SCH ×4 (01:00→20:50)
[2022-09-15] MEDS: Albuterol 200 PUFF (6.7GM INHALER) INH SCH ×3 (07:35→18:53)
[2022-09-15] MEDS ORDERED: Communication Order-Pharmacy FS SCH (08:14)
[2022-09-15] MEDS: Senokot S 8.6-50 MG TAB PO SCH ×2 (09:14→20:49)
[2022-09-15] MEDS: Aspirin 81 mg Enteric Coated Tablet PO SCH (09:14)
[2022-09-15] MEDS: Tamsulosin HCl 0.4 MG CAP PO SCH (09:14)
[2022-09-15] MEDS: Ferrous Sulfate 325 MG TAB PO SCH (09:14)
[2022-09-15] MEDS: Docusate 100 MG CAP PO SCH ×2 (09:15→20:49)
[2022-09-15] MEDS: Amiodarone 200 MG TAB PO SCH (09:15)
[2022-09-15] MEDS: Rosuvastatin 10 MG TAB PO SCH (09:15)
[2022-09-15] MEDS: Heparin 5,000 UNITS/ML VIAL SC SCH ×2 (09:16→20:51)
[2022-09-15] MEDS: Furosemide 20 MG TAB PO SCH ×2 (09:16→13:48)
[2022-09-15] MEDS: Gabapentin 300 MG CAP PO SCH ×2 (09:17→20:50)
[2022-09-15] MEDS: Famotidine 20 MG TAB PO SCH (09:18)
[2022-09-15] MEDS: Polyethylene Glycol 3350 17 GM Packet PO SCH (16:39)
[2022-09-16] MEDS: Acetaminophen/Codeine 30-300mg Tablet PO SCH ×4 (02:18→20:06)
[2022-09-16] MEDS: Albuterol 200 PUFF (6.7GM INHALER) INH SCH ×3 (08:08→18:52)
[2022-09-16] MEDS: Tamsulosin HCl 0.4 MG CAP PO SCH (10:07)
[2022-09-16] MEDS: Rosuvastatin 10 MG TAB PO SCH (10:07)
[2022-09-16] MEDS: Amiodarone 200 MG TAB PO SCH (10:08)
[2022-09-16] MEDS: Furosemide 20 MG TAB PO SCH ×2 (10:08→14:04)
[2022-09-16] MEDS: Gabapentin 300 MG CAP PO SCH ×2 (10:08→20:06)
[2022-09-16] MEDS: Heparin 5,000 UNITS/ML VIAL SC SCH (10:08)
[2022-09-16] MEDS: Ferrous Sulfate 325 MG TAB PO SCH (10:09)
[2022-09-16] MEDS: Docusate 100 MG CAP PO SCH ×2 (10:09→20:07)
[2022-09-16] MEDS: Senokot S 8.6-50 MG TAB PO SCH ×2 (10:10→20:07)
[2022-09-16] MEDS: Polyethylene Glycol 3350 17 GM Packet PO SCH (10:10)
[2022-09-16] MEDS: Famotidine 20 MG TAB PO SCH (10:10)
[2022-09-16] MEDS ORDERED: Furosemide 40 MG/4 ML VIAL SLOW IVP SCH (14:00)
[2022-09-17] MEDS: Acetaminophen/Codeine 30-300mg Tablet PO SCH ×2 (02:33→12:22)
[2022-09-17] MEDS ORDERED: CEFAZOLIN 2 GM in Sodium Chloride 0.9% 100 ML IVPB SCH (04:00)
[2022-09-17] MEDS ORDERED: Sevoflurane 250 ML INH ANEST BOTTLE ONE (05:15)
[2022-09-17] MEDS ORDERED: Albumin 5% 0 ML ONE (06:18)
[2022-09-17] MEDS ORDERED: Heparin 10,000 UNITS/1 ML VIAL 30,000 UNITS in Sodium Chloride 0.9% 1,000 ML FS SCH (06:45)
[2022-09-17] MEDS ORDERED: Fentanyl 250 MCG/5 ML VIAL ONE (06:56)
[2022-09-17] MEDS ORDERED: Midazolam HCl 2 mg/2 ml Vial ONE (06:56)
[2022-09-17] MEDS ORDERED: Lidocaine 1% MPF 2 ML VIAL ONE (07:04)
[2022-09-17] MEDS ORDERED: Ipratropium/Albuterol 3 ML NEB ONE (07:04)
[2022-09-17] MEDS ORDERED: CEFAZOLIN 2 GM VIAL ONE (07:17)
[2022-09-17] MEDS ORDERED: Sodium Chloride 0.9% 100 ML ONE (07:17)
[2022-09-17] MEDS ORDERED: Rocuronium Bromide 10 MG/ML (10ML VIAL) ONE (08:00)
[2022-09-17] MEDS ORDERED: Vancomycin 1 GM VIAL ONE (08:00)
[2022-09-17] MEDS ORDERED: Aminocaproic Acid 5 GM/20 ML VIAL ONE (08:00)
[2022-09-17] MEDS ORDERED: Heparin 30,000 units/30 ml VIAL ONE (08:00)
[2022-09-17] MEDS ORDERED: Potassium Chloride 60 MEQ/30 ML VIAL ONE (08:00)
[2022-09-17] MEDS ORDERED: Calcium Chloride 1 GM/10 ML Abboject SYRINGE ONE (08:00)
[2022-09-17] MEDS ORDERED: Lidocaine 2% PF 100 mg/5 ml Syringe ONE (08:00)
[2022-09-17] MEDS ORDERED: Albumin 25% 25 GM/100 ML BOT ONE (08:00)
[2022-09-17] MEDS ORDERED: Cardioplegic Soln 1,000 ML BAG ONE (08:00)
[2022-09-17] MEDS ORDERED: Thrombin 5000 UNITS/5 ML VIAL ONE (08:00)
[2022-09-17] MEDS ORDERED: Mannitol 12.5 GM/50 ML ONE (08:00)
[2022-09-17] MEDS ORDERED: DOPamine 400 MG/10 ML VIAL ONE (08:00)
[2022-09-17] MEDS ORDERED: Sodium Bicarb 50 MEQ/50 ML VIAL ONE (08:00)
[2022-09-17] MEDS ORDERED: Papaverine 60 MG/2 ML VIAL ONE (08:00)
[2022-09-17] MEDS ORDERED: Norepinephrine 4 MG/4 ML VIAL ONE (08:00)
[2022-09-17] MEDS ORDERED: Magnesium 5 GM/10 ML VIAL ONE (08:00)
[2022-09-17] MEDS ORDERED: Protamine Sulfate 250 MG/25 ML VIAL ONE (08:00)
[2022-09-17] MEDS ORDERED: Heparin 5,000 UNITS/ML VIAL ONE (08:00)
[2022-09-17] MEDS ORDERED: Milrinone Lactate/D5W 20 MG in Premix Bag 1 BAG IV SCH (08:30)
[2022-09-17] MEDS ORDERED: Milrinone 10 MG/10 ML VIAL ONE (08:42)
[2022-09-17] MEDS ORDERED: Albuterol HFA (OR) 200 PUFF INH ONE (10:28)
[2022-09-17] MEDS ORDERED: EPINEPHrine 1 MG/ML AMP ONE (10:34)
[2022-09-17] MEDS: Albuterol 200 PUFF (6.7GM INHALER) INH SCH ×2 (11:18→13:45)
[2022-09-17] MEDS ORDERED: Insulin Regular 300 UNITS/3 ML VIAL ONE (11:19)
[2022-09-17] MEDS: Polyethylene Glycol 3350 17 GM Packet PO SCH (12:22)
[2022-09-17] MEDS: Docusate 100 MG CAP PO SCH (12:22)
[2022-09-17] MEDS: Ferrous Sulfate 325 MG TAB PO SCH (12:22)
[2022-09-17] MEDS: Famotidine 20 MG TAB PO SCH (12:22)
[2022-09-17] MEDS: Furosemide 20 MG TAB PO SCH (12:22)
[2022-09-17] MEDS: Senokot S 8.6-50 MG TAB PO SCH (12:22)
[2022-09-17] MEDS: Rosuvastatin 10 MG TAB PO SCH (12:22)
[2022-09-17] MEDS: Amiodarone 200 MG TAB PO SCH (12:22)
[2022-09-17] MEDS: Gabapentin 300 MG CAP PO SCH (12:22)
[2022-09-17] MEDS: Tamsulosin HCl 0.4 MG CAP PO SCH (12:22)
[2022-09-17] MEDS: Insulin Regular 300 UNITS/3 ML VIAL SC PRN ×2 (12:35→14:20)
[2022-09-17 12:46] LABS: Actual Bicarbonate (HCO3a) 22.5 mEq/L (22-28); Base Excess (BEa) -3.1 mEq/L (-2.0 to +3.0); CO2 Tension 42.6 mmHg (35.0-45.0); Calcium, Ionized (arterial) 1.06 mmol/L (1.12-1.30); Carboxyhemoglobin (COHb) 1.2 gm% (0.0-3.0); Hematocrit-ABG 36 % (36.0-47.0); Hemoglobin (Hb) 12.2 g/dL (12.0-16.0); O2 Tension (PaO2), arterial 109.3 mmHg (> 70.0); pH, Arterial 7.341 (7.35-7.45)
[2022-09-17 12:48] LABS: Potassium - ABG Lab 2.62 mmol/L (3.70-5.30)
[2022-09-17 12:49] LABS: Puncture Site Arterial Line
[2022-09-17] MEDS ORDERED: Potassium Chloride 20 MEQ in Premix Bag 1 BAG IVPB SCH (13:00)
[2022-09-17 13:21] LABS: Hemoglobin 12.1 g/dL (12.0-16.0); Mean Corpuscular HGB CONC 33.5 g/dL (32.0-36.0); Mean Corpuscular Hemoglobin 29.3 pg (27.0-31.0); Mean Corpuscular Volume 87.4 fl (78.0-98.0); Mean Platelet Volume 8.7 fL (7.4-10.4); Platelet Count 154 10x3/uL (130-400); Red Blood Cell (RBC) Count 4.14 mill/uL (4.20-5.40); White Blood Cell (WBC) Count 13.7 10x3/uL (4.8-10.8)
[2022-09-17 13:28] LABS: Anion Gap 13 mmol/L (10-20); BUN (Urea Nitrogen) 29 mg/dL (9.8-20.1); Calc. Creatinine Clearance 32 mL/min (70-130); Calcium 7.3 mg/dL (7.8-10.44); Carbon Dioxide 23 mmol/L (23-31); Chloride 105 mmol/L (98-107); Estimated GFR 31; Glucose 137 mg/dL (83-110); Magnesium 2.1 mg/dL (1.6-2.6); Phosphorus 3.3 mg/dL (2.3-4.7); Sodium 138 mmol/L (136-145)
[2022-09-17] MEDS ORDERED: Mag-Al 1200 mg/1200 mg/30 ML UDCUP PO PRN (13:28)
[2022-09-17] MEDS ORDERED: fentaNYL 50 mcg/mL 1 mL Vial SLOW IVP PRN ×2 (13:28)
[2022-09-17] MEDS ORDERED: niCARdipine 25 MG in Sodium Chloride 0.9% 250 ML 250 ML IVPB PRN (13:28)
[2022-09-17] MEDS ORDERED: Post-Op Insulin Drip Protocol IVPB SCH (13:28)
[2022-09-17] MEDS ORDERED: Bisacodyl 10 MG SUPP PR PRN (13:28)
[2022-09-17] MEDS ORDERED: EPINEPHrine 4 MG in Dextrose 5% in Water 250 ML IV SCH (13:28)
[2022-09-17] MEDS ORDERED: Ondansetron PF 4 MG/2 ML Vial IVP PRN (13:28)
[2022-09-17] MEDS ORDERED: Acetaminophen 325 MG TAB PO PRN (13:28)
[2022-09-17] MEDS ORDERED: hydrALAZINE 20 MG/ML VIAL SLOW IVP PRN (13:28)
[2022-09-17] MEDS ORDERED: Ipratropium/Albuterol 3 ML NEB NEB PRN (13:28)
[2022-09-17] MEDS ORDERED: DOPamine 400 MG/D5W 250 ML 250 ML IVPB PRN (13:28)
[2022-09-17] MEDS ORDERED: Nitroglycerin 50 MG/250 ML BOT 250 ML IVPB PRN (13:28)
[2022-09-17] MEDS ORDERED: Morphine 2 MG/ML VIAL SLOW IVP PRN (13:28)
[2022-09-17] MEDS ORDERED: Hetastarch 6% 500 ML 500 ML IVPB PRN (13:28)
[2022-09-17] MEDS ORDERED: Guaifenesin DM 100-10/5 ML UDCUP PO PRN (13:28)
[2022-09-17 13:36] LABS: Potassium 2.6 mmol/L (3.5-5.1)
[2022-09-17 13:39] LABS: Anisocytosis SLIGHT = 6-15 cells (100X) (0-5/hpf); Band 8 % (5-11); Eosinophils 3 % (0-10); Lymphocytes 11 % (21-51); MDiff Complete? YES; Monocytes 3 % (0-10); Neutrophil 74 % (42-75); Ovalocytes SLIGHT = 2-5 cells (100X) (0-1/hpf); Platelet Morphology Comment Appears Adequate; Polychromasia SLIGHT = 2-3 cells (100X) (0-2/hpf); Reactive Lymphocytes 1 % (0-10)
[2022-09-17] MEDS: Lactated Ringer's 1,000 ML IV SCH (13:59)
[2022-09-17] MEDS ORDERED: HUMULIN R 100 UNITS in Sodium Chloride 0.9% 100 ML IVPB SCH (14:00)
[2022-09-17] MEDS ORDERED: Dextrose 5% in Water 1,000 ML IV PRN (14:00)
[2022-09-17] MEDS ORDERED: Dextrose 50% Abboject 50 ML SYRINGE SLOW IVP PRN (14:00)
[2022-09-17 14:02] LABS: INR-International Normal Ratio 1.5; PTT 37.9 sec (22.9-36.1); Prothrombin Time 18.7 sec (12.0-14.7)
[2022-09-17] MEDS: CEFAZOLIN 2 GM in Sodium Chloride 0.9% 100 ML IVPB SCH ×2 (14:59→23:51)
[2022-09-17] MEDS: Ipratropium/Albuterol 3 ML NEB NEB SCH ×3 (15:34→23:19)
[2022-09-17 18:37] LABS: Hemoglobin 11.9 g/dL (12.0-16.0)
[2022-09-17 18:54] LABS: Potassium 2.7 mmol/L (3.5-5.1)
[2022-09-17 19:12] LABS: Bacteria/HPF 3+ HPF (None Seen); RBC/HPF 21-50 HPF (0-3); Renal Epithelial 0-3 HPF (None Seen); Squamous Epithelial 0-3 HPF (0-3); WBC/HPF Greater than 50 HPF (0-3)
[2022-09-17] MEDS: Atorvastatin Calcium 20 MG TAB PO SCH (20:53)
[2022-09-17] MEDS ORDERED: Famotidine/PF 20 mg/2ml Vial SLOW IVP SCH (21:00)
[2022-09-18] MEDS: Lactated Ringer's 1,000 ML IV SCH ×2 (02:26→17:00)
[2022-09-18 04:01] LABS: #Lymphocytes 0.9 thou/uL (1.20-3.40); #Monocytes 0.7 thou/uL (0.11-0.59); #Neutrophils 10.5 thou/uL (1.40-6.50); %Basophils 0.4 % (0.0-1.0); %Eosinophils 0.1 % (0.0-10.0); %Lymphocytes 7.6 % (21.0-51.0); %Monocytes 5.9 % (0.0-10.0); %Neutrophils 85.9 % (42.0-75.0); Hemoglobin 11.2 g/dL (12.0-16.0); Mean Corpuscular HGB CONC 31.9 g/dL (32.0-36.0); Mean Corpuscular Hemoglobin 28.4 pg (27.0-31.0); Mean Corpuscular Volume 88.9 fl (78.0-98.0); Mean Platelet Volume 8.9 fL (7.4-10.4); Platelet Count 194 10x3/uL (130-400); RBC Distribution Width 18.2 % (11.5-14.5); Red Blood Cell (RBC) Count 3.93 mill/uL (4.20-5.40); White Blood Cell (WBC) Count 12.2 10x3/uL (4.8-10.8)
[2022-09-18 04:20] LABS: Anion Gap 15 mmol/L (10-20); BUN (Urea Nitrogen) 28 mg/dL (9.8-20.1); Calc. Creatinine Clearance 30 mL/min (70-130); Calcium 8.1 mg/dL (7.8-10.44); Carbon Dioxide 24 mmol/L (23-31); Chloride 106 mmol/L (98-107); Estimated GFR 29; Glucose 167 mg/dL (83-110); Potassium 3.1 mmol/L (3.5-5.1); Sodium 142 mmol/L (136-145)
[2022-09-18] MEDS: Potassium Chloride 20 MEQ/100 ML PREMIX BAG IVPB PRN (05:16)
[2022-09-18] MEDS: Insulin Regular 300 UNITS/3 ML VIAL SC PRN ×2 (05:16→12:10)
[2022-09-18] MEDS: Ipratropium/Albuterol 3 ML NEB NEB SCH ×4 (06:17→23:43)
[2022-09-18] MEDS: CEFAZOLIN 2 GM in Sodium Chloride 0.9% 100 ML IVPB SCH (06:42)
[2022-09-18 09:00] LABS: Actual Bicarbonate (HCO3a) 23.2 mEq/L (22-28); Base Excess (BEa) -2.4 mEq/L (-2.0 to +3.0); CO2 Tension 42.7 mmHg (35.0-45.0); Calcium, Ionized (arterial) 1.13 mmol/L (1.12-1.30); Carboxyhemoglobin (COHb) 1.4 gm% (0.0-3.0); Hematocrit-ABG 34 % (36.0-47.0); Hemoglobin (Hb) 11.4 g/dL (12.0-16.0); O2 Tension (PaO2), arterial 97.9 mmHg (> 70.0); Potassium - ABG Lab 3.59 mmol/L (3.70-5.30); pH, Arterial 7.352 (7.35-7.45)
[2022-09-18 09:02] LABS: ALV-art Gradient 133.925 mmHg (0-20); Puncture Site Arterial Line
[2022-09-18] MEDS: Magnesium 2 GM/50 ML(in water) 2 GM in Premix Bag 1 BAG IVPB SCH (09:57)
[2022-09-18] MEDS: DOBUTamine 500 mg/250 ml 250 ML IVPB SCH (09:58)
[2022-09-18] MEDS: Aspirin Chewable 81 MG TAB PO SCH (09:58)
[2022-09-18] MEDS: Polyethylene Glycol 3350 17 GM Packet PO SCH (09:58)
[2022-09-18] MEDS ORDERED: Insulin Glargine 30 UNITS/0.3 ML VIAL SC PRN (13:46)
[2022-09-18] MEDS: Atorvastatin Calcium 20 MG TAB PO SCH (20:10)
[2022-09-18] MEDS: Heparin 5,000 UNITS/ML VIAL SC SCH (20:10)
[2022-09-19] MEDS: Ipratropium/Albuterol 3 ML NEB NEB SCH ×4 (07:06→23:21)
[2022-09-19] MEDS: Lactated Ringer's 1,000 ML IV SCH ×2 (07:30→19:44)
[2022-09-19] MEDS: Aspirin Chewable 81 MG TAB PO SCH (09:48)
[2022-09-19] MEDS: Magnesium 2 GM/50 ML(in water) 2 GM in Premix Bag 1 BAG IVPB SCH (09:49)
[2022-09-19] MEDS: Heparin 5,000 UNITS/ML VIAL SC SCH ×2 (09:49→19:47)
[2022-09-19] MEDS: Polyethylene Glycol 3350 17 GM Packet PO SCH (09:49)
[2022-09-19] MEDS: DOBUTamine 500 mg/250 ml 250 ML IVPB SCH (10:45)
[2022-09-19] MEDS: Insulin Regular 300 UNITS/3 ML VIAL SC PRN ×2 (12:56→16:20)
[2022-09-19] MEDS: HYDROcodone/Acetaminophen 5/325 mg Tablet PO PRN (19:45)
[2022-09-19] MEDS: Atorvastatin Calcium 20 MG TAB PO SCH (19:47)
[2022-09-20] MEDS: HYDROcodone/Acetaminophen 5/325 mg Tablet PO PRN (00:25)
[2022-09-20 04:44] LABS: #Basophils 0.1 thou/uL (0.0-0.2); #Eosinphils 0.1 thou/uL (0.0-0.7); #Lymphocytes 1.6 thou/uL (1.20-3.40); #Monocytes 0.7 thou/uL (0.11-0.59); #Neutrophils 7.4 thou/uL (1.40-6.50); %Basophils 0.6 % (0.0-1.0); %Eosinophils 0.8 % (0.0-10.0); %Lymphocytes 16.5 % (21.0-51.0); %Monocytes 6.8 % (0.0-10.0); %Neutrophils 75.2 % (42.0-75.0); Hemoglobin 10.5 g/dL (12.0-16.0); Mean Corpuscular Hemoglobin 29.5 pg (27.0-31.0); Mean Corpuscular Volume 89.4 fl (78.0-98.0); Mean Platelet Volume 8.9 fL (7.4-10.4); Platelet Count 248 10x3/uL (130-400); RBC Distribution Width 18.4 % (11.5-14.5); Red Blood Cell (RBC) Count 3.57 mill/uL (4.20-5.40); White Blood Cell (WBC) Count 9.8 10x3/uL (4.8-10.8)
[2022-09-20 04:56] LABS: Anion Gap 15 mmol/L (10-20); BUN (Urea Nitrogen) 40 mg/dL (9.8-20.1); Calc. Creatinine Clearance 25 mL/min (70-130); Calcium 8.4 mg/dL (7.8-10.44); Carbon Dioxide 23 mmol/L (23-31); Chloride 100 mmol/L (98-107); Estimated GFR 22; Glucose 90 mg/dL (83-110); Sodium 134 mmol/L (136-145)
[2022-09-20] MEDS: Ipratropium/Albuterol 3 ML NEB NEB SCH ×4 (07:06→23:16)
[2022-09-20] MEDS ORDERED: Dextrose 5% in Water 1,000 ML IV PRN (07:19)
[2022-09-20] MEDS ORDERED: Dextrose 50% Abboject 50 ML SYRINGE SLOW IVP PRN (07:19)
[2022-09-20] MEDS ORDERED: Furosemide 40 MG/4 ML VIAL SLOW IVP SCH (07:30)
[2022-09-20] MEDS ORDERED: Potassium Chloride 10 MEQ TAB PO SCH (07:30)
[2022-09-20] MEDS: Empagliflozin 10 MG TAB PO SCH (08:34)
[2022-09-20] MEDS: Aspirin Chewable 81 MG TAB PO SCH (08:34)
[2022-09-20] MEDS: Polyethylene Glycol 3350 17 GM Packet PO SCH (08:34)
[2022-09-20] MEDS: Heparin 5,000 UNITS/ML VIAL SC SCH ×2 (08:35→22:01)
[2022-09-20] MEDS: Lactated Ringer's 1,000 ML IV SCH ×2 (08:35→22:02)
[2022-09-20 12:12] LABS: Actual Bicarbonate (HCO3v) 19.2 mEq/L (22-28); Base Excess -5.7 mEq/L (-2.0 to +3.0); Calcium, Ionized (venous) 1.07 mmol/L (1.16-1.32); Chloride (VBG) 98 mmol/L (98-106); Hematocrit-VBG 33 % (36.0-47.0); Hemoglobin (Hb) 11.3 g/dL (11.7-16.1); Sodium 128.3 mmol/L (133-146); pH (venous) 7.354 (7.32-7.43)
[2022-09-20] MEDS ORDERED: Magnesium 2 GM/50 ML(in water) 2 GM in Premix Bag 1 BAG IVPB SCH (12:30)
[2022-09-20] MEDS: Amiodarone 450 MG in Dextrose 5% in Water 250 ML IVPB SCH ×2 (13:10→22:12)
[2022-09-20] MEDS: Atorvastatin Calcium 20 MG TAB PO SCH (22:01)
[2022-09-21] MEDS: Ipratropium/Albuterol 3 ML NEB NEB SCH ×3 (07:21→18:30)
[2022-09-21] MEDS: Heparin 5,000 UNITS/ML VIAL SC SCH ×2 (08:15→20:45)
[2022-09-21] MEDS: Polyethylene Glycol 3350 17 GM Packet PO SCH (08:15)
[2022-09-21] MEDS: Empagliflozin 10 MG TAB PO SCH (08:15)
[2022-09-21] MEDS: Aspirin Chewable 81 MG TAB PO SCH (08:15)
[2022-09-21] MEDS: Bisacodyl 5 MG TAB PO PRN ×2 (08:18→20:58)
[2022-09-21] MEDS ORDERED: Furosemide 40 MG/4 ML VIAL SLOW IVP SCH (09:30)
[2022-09-21] MEDS: DOBUTamine 500 mg/250 ml 250 ML IVPB SCH (09:43)
[2022-09-21 12:45] LABS: Anion Gap 17 mmol/L (10-20); BUN (Urea Nitrogen) 42 mg/dL (9.8-20.1); Calc. Creatinine Clearance 24 mL/min (70-130); Calcium 8.2 mg/dL (7.8-10.44); Carbon Dioxide 19 mmol/L (23-31); Chloride 98 mmol/L (98-107); Estimated GFR 21; Glucose 184 mg/dL (83-110); Potassium 4.3 mmol/L (3.5-5.1); Sodium 130 mmol/L (136-145)
[2022-09-21] MEDS: Amiodarone 450 MG in Dextrose 5% in Water 250 ML IVPB SCH (13:30)
[2022-09-21] MEDS: HumaLOG 300 UNITS/3 ML VIAL SC PRN ×2 (13:46→20:46)
[2022-09-21] MEDS: Atorvastatin Calcium 20 MG TAB PO SCH (20:45)
[2022-09-22] MEDS: Ipratropium/Albuterol 3 ML NEB NEB SCH ×5 (00:08→23:51)
[2022-09-22 04:44] LABS: Anion Gap 16 mmol/L (10-20); BUN (Urea Nitrogen) 43 mg/dL (9.8-20.1); Calc. Creatinine Clearance 23 mL/min (70-130); Carbon Dioxide 20 mmol/L (23-31); Chloride 98 mmol/L (98-107); Sodium 130 mmol/L (136-145)
[2022-09-22 04:45] LABS: Calcium 8.2 mg/dL (7.8-10.44); Estimated GFR 20; Glucose 139 mg/dL (83-110)
[2022-09-22] MEDS: Amiodarone 200 MG TAB PO SCH ×2 (08:28→20:47)
[2022-09-22] MEDS: Aspirin Chewable 81 MG TAB PO SCH (08:28)
[2022-09-22] MEDS: Polyethylene Glycol 3350 17 GM Packet PO SCH (08:35)
[2022-09-22] MEDS: Empagliflozin 10 MG TAB PO SCH (08:35)
[2022-09-22] MEDS: Furosemide 40 MG/4 ML VIAL SLOW IVP SCH ×2 (08:37→18:03)
[2022-09-22] MEDS: Heparin 5,000 UNITS/ML VIAL SC SCH ×2 (08:43→20:49)
[2022-09-22] MEDS: DOBUTamine 500 mg/250 ml 250 ML IVPB SCH (12:13)
[2022-09-22] MEDS: Atorvastatin Calcium 20 MG TAB PO SCH (20:47)
[2022-09-22] MEDS: HYDROcodone/Acetaminophen 5/325 mg Tablet PO PRN (20:48)
[2022-09-23 04:59] LABS: Anion Gap 13 mmol/L (10-20); BUN (Urea Nitrogen) 45 mg/dL (9.8-20.1); Calc. Creatinine Clearance 26 mL/min (70-130); Calcium 8.4 mg/dL (7.8-10.44); Carbon Dioxide 24 mmol/L (23-31); Chloride 97 mmol/L (98-107); Estimated GFR 20; Glucose 109 mg/dL (83-110); Potassium 3.4 mmol/L (3.5-5.1); Sodium 131 mmol/L (136-145)
[2022-09-23] MEDS: Potassium Chloride 20 MEQ/100 ML PREMIX BAG IVPB PRN (05:45)
[2022-09-23] MEDS: Ipratropium/Albuterol 3 ML NEB NEB SCH ×4 (07:15→22:20)
[2022-09-23] MEDS: Aspirin Chewable 81 MG TAB PO SCH (08:53)
[2022-09-23] MEDS: Furosemide 40 MG/4 ML VIAL SLOW IVP SCH ×2 (08:53→18:28)
[2022-09-23] MEDS: Amiodarone 200 MG TAB PO SCH ×2 (08:53→20:56)
[2022-09-23] MEDS: Heparin 5,000 UNITS/ML VIAL SC SCH ×2 (08:54→20:56)
[2022-09-23] MEDS: DOBUTamine 500 mg/250 ml 250 ML IVPB SCH (08:54)
[2022-09-23] MEDS: Empagliflozin 10 MG TAB PO SCH (08:56)
[2022-09-23] MEDS: Polyethylene Glycol 3350 17 GM Packet PO SCH (09:19)
[2022-09-23] MEDS: HumaLOG 300 UNITS/3 ML VIAL SC PRN (16:46)
[2022-09-23] MEDS: Atorvastatin Calcium 20 MG TAB PO SCH (20:56)
[2022-09-24 04:42] LABS: Anion Gap 15 mmol/L (10-20); BUN (Urea Nitrogen) 44 mg/dL (9.8-20.1); Calc. Creatinine Clearance 24 mL/min (70-130); Calcium 8.2 mg/dL (7.8-10.44); Carbon Dioxide 23 mmol/L (23-31); Chloride 99 mmol/L (98-107); Estimated GFR 20; Glucose 116 mg/dL (83-110); Potassium 3.5 mmol/L (3.5-5.1); Sodium 133 mmol/L (136-145)
[2022-09-24] MEDS: Potassium Chloride 20 MEQ/100 ML PREMIX BAG IVPB PRN (05:02)
[2022-09-24] MEDS: Ipratropium/Albuterol 3 ML NEB NEB SCH ×4 (07:02→22:44)
[2022-09-24] MEDS: Furosemide 40 MG/4 ML VIAL SLOW IVP SCH ×2 (08:17→17:07)
[2022-09-24] MEDS: DOBUTamine 500 mg/250 ml 250 ML IVPB SCH (08:17)
[2022-09-24] MEDS: Aspirin Chewable 81 MG TAB PO SCH (08:17)
[2022-09-24] MEDS: Empagliflozin 10 MG TAB PO SCH (08:17)
[2022-09-24] MEDS: Heparin 5,000 UNITS/ML VIAL SC SCH ×2 (08:17→20:17)
[2022-09-24] MEDS: Amiodarone 200 MG TAB PO SCH ×2 (08:17→20:18)
[2022-09-24] MEDS: Polyethylene Glycol 3350 17 GM Packet PO SCH (09:13)
[2022-09-24] MEDS: HumaLOG 300 UNITS/3 ML VIAL SC PRN ×2 (15:40→20:16)
[2022-09-24] MEDS: Atorvastatin Calcium 20 MG TAB PO SCH (20:18)
[2022-09-25 04:52] LABS: Anion Gap 13 mmol/L (10-20); BUN (Urea Nitrogen) 40 mg/dL (9.8-20.1); Calc. Creatinine Clearance 27 mL/min (70-130); Calcium 8.1 mg/dL (7.8-10.44); Carbon Dioxide 25 mmol/L (23-31); Chloride 101 mmol/L (98-107); Estimated GFR 23; Glucose 100 mg/dL (83-110); Potassium 3.3 mmol/L (3.5-5.1); Sodium 136 mmol/L (136-145)
[2022-09-25] MEDS: Potassium Chloride 20 MEQ/100 ML PREMIX BAG IVPB PRN (05:02)
[2022-09-25] MEDS: Ipratropium/Albuterol 3 ML NEB NEB SCH ×4 (07:06→22:57)
[2022-09-25] MEDS ORDERED: Potassium Chloride 20 MEQ TAB PO SCH (08:00)
[2022-09-25] MEDS: Furosemide 40 MG/4 ML VIAL SLOW IVP SCH ×2 (08:35→17:26)
[2022-09-25] MEDS: Amiodarone 200 MG TAB PO SCH ×2 (08:35→20:03)
[2022-09-25] MEDS: Heparin 5,000 UNITS/ML VIAL SC SCH ×2 (08:35→20:03)
[2022-09-25] MEDS: Aspirin Chewable 81 MG TAB PO SCH (08:35)
[2022-09-25] MEDS: Polyethylene Glycol 3350 17 GM Packet PO SCH (08:36)
[2022-09-25] MEDS: Empagliflozin 10 MG TAB PO SCH (09:00)
[2022-09-25] MEDS: DOBUTamine 500 mg/250 ml 250 ML IVPB SCH (10:04)
[2022-09-25] MEDS: Atorvastatin Calcium 20 MG TAB PO SCH (20:02)
[2022-09-25] MEDS: HumaLOG 300 UNITS/3 ML VIAL SC PRN (20:07)
[2022-09-26 04:25] LABS: #Eosinphils 0.1 thou/uL (0.0-0.7); #Lymphocytes 0.9 thou/uL (1.20-3.40); #Monocytes 0.6 thou/uL (0.11-0.59); #Neutrophils 6.2 thou/uL (1.40-6.50); %Basophils 0.1 % (0.0-1.0); %Eosinophils 0.7 % (0.0-10.0); %Lymphocytes 11.2 % (21.0-51.0); %Monocytes 7.9 % (0.0-10.0); %Neutrophils 80.1 % (42.0-75.0); Hemoglobin 10.2 g/dL (12.0-16.0); Mean Corpuscular HGB CONC 31.7 g/dL (32.0-36.0); Mean Corpuscular Hemoglobin 28.4 pg (27.0-31.0); Mean Corpuscular Volume 89.6 fl (78.0-98.0); Mean Platelet Volume 7.8 fL (7.4-10.4); Platelet Count 425 10x3/uL (130-400); RBC Distribution Width 18.6 % (11.5-14.5); Red Blood Cell (RBC) Count 3.58 mill/uL (4.20-5.40); White Blood Cell (WBC) Count 7.8 10x3/uL (4.8-10.8)
[2022-09-26] MEDS: Ipratropium/Albuterol 3 ML NEB NEB SCH ×4 (07:38→23:56)
[2022-09-26] MEDS: DOBUTamine 500 mg/250 ml 250 ML IVPB SCH (09:25)
[2022-09-26] MEDS: Furosemide 40 MG/4 ML VIAL SLOW IVP SCH ×2 (10:33→18:45)
[2022-09-26] MEDS: Heparin 5,000 UNITS/ML VIAL SC SCH ×2 (10:34→20:23)
[2022-09-26] MEDS: Aspirin Chewable 81 MG TAB PO SCH (10:34)
[2022-09-26] MEDS: Empagliflozin 10 MG TAB PO SCH (10:34)
[2022-09-26] MEDS: Potassium Chloride 20 MEQ TAB PO SCH ×2 (10:34→18:45)
[2022-09-26] MEDS: Amiodarone 200 MG TAB PO SCH ×2 (10:34→20:22)
[2022-09-26] MEDS: Polyethylene Glycol 3350 17 GM Packet PO SCH (10:35)
[2022-09-26] MEDS: HYDROcodone/Acetaminophen 5/325 mg Tablet PO PRN (10:35)
[2022-09-26] MEDS: Atorvastatin Calcium 20 MG TAB PO SCH (20:22)
[2022-09-27] MEDS: Ipratropium/Albuterol 3 ML NEB NEB SCH ×4 (06:47→23:38)
[2022-09-27] MEDS: Furosemide 40 MG/4 ML VIAL SLOW IVP SCH ×2 (08:19→17:27)
[2022-09-27] MEDS: Polyethylene Glycol 3350 17 GM Packet PO SCH (08:23)
[2022-09-27] MEDS: Potassium Chloride 20 MEQ TAB PO SCH ×2 (08:23→17:27)
[2022-09-27] MEDS: Empagliflozin 10 MG TAB PO SCH (08:24)
[2022-09-27] MEDS: Amiodarone 200 MG TAB PO SCH ×2 (08:24→20:35)
[2022-09-27] MEDS: Aspirin Chewable 81 MG TAB PO SCH (08:25)
[2022-09-27] MEDS: Heparin 5,000 UNITS/ML VIAL SC SCH ×2 (08:30→20:35)
[2022-09-27 09:25] LABS: Anion Gap 16 mmol/L (10-20); BUN (Urea Nitrogen) 35 mg/dL (9.8-20.1); Calc. Creatinine Clearance 30 mL/min (70-130); Calcium 8.3 mg/dL (7.8-10.44); Carbon Dioxide 23 mmol/L (23-31); Chloride 100 mmol/L (98-107); Estimated GFR 28; Glucose 115 mg/dL (83-110); Potassium 3.8 mmol/L (3.5-5.1); Sodium 135 mmol/L (136-145)
[2022-09-27] MEDS: DOBUTamine 500 mg/250 ml 250 ML IVPB SCH (10:35)
[2022-09-27] MEDS ORDERED: Meclizine HCl 25 MG TAB PO PRN (10:59)
[2022-09-27] MEDS: Atorvastatin Calcium 20 MG TAB PO SCH (20:35)
[2022-09-28 04:26] LABS: Anion Gap 16 mmol/L (10-20); BUN (Urea Nitrogen) 39 mg/dL (9.8-20.1); Calc. Creatinine Clearance 31 mL/min (70-130); Calcium 8.6 mg/dL (7.8-10.44); Carbon Dioxide 26 mmol/L (23-31); Chloride 99 mmol/L (98-107); Estimated GFR 28; Glucose 119 mg/dL (83-110); Sodium 137 mmol/L (136-145)
[2022-09-28] MEDS: Ipratropium/Albuterol 3 ML NEB NEB SCH ×4 (06:52→23:36)
[2022-09-28] MEDS: Heparin 5,000 UNITS/ML VIAL SC SCH ×2 (08:28→20:38)
[2022-09-28] MEDS: Polyethylene Glycol 3350 17 GM Packet PO SCH (08:28)
[2022-09-28] MEDS: Aspirin Chewable 81 MG TAB PO SCH (08:29)
[2022-09-28] MEDS: Amiodarone 200 MG TAB PO SCH (08:29)
[2022-09-28] MEDS: Empagliflozin 10 MG TAB PO SCH (08:29)
[2022-09-28] MEDS ORDERED: Furosemide 40 MG/4 ML VIAL SLOW IVP SCH ×3 (09:00→16:00)
[2022-09-28 12:35] VITALS: BP 146/90
[2022-09-28] MEDS: HYDROcodone/Acetaminophen 5/325 mg Tablet PO PRN ×2 (12:37→20:41)
[2022-09-28] MEDS ORDERED: Morphine 4 MG/ML VIAL SLOW IVP SCH (13:30)
[2022-09-28] MEDS ORDERED: Lorazepam 2 MG/ML VIAL SLOW IVP SCH (13:30)
[2022-09-28] MEDS: DOBUTamine 500 mg/250 ml 250 ML IVPB SCH (14:34)
[2022-09-28] MEDS ORDERED: Metolazone 5 MG TAB PO SCH (16:30)
[2022-09-28] MEDS: Atorvastatin Calcium 20 MG TAB PO SCH (20:38)
[2022-09-29] MEDS: Furosemide 40 MG/4 ML VIAL SLOW IVP SCH ×2 (05:48→15:03)
[2022-09-29] MEDS ORDERED: DOBUTamine 500 mg/250 ml 250 ML IVPB SCH (06:17)
[2022-09-29] MEDS ORDERED: Furosemide 40 MG/4 ML VIAL SLOW IVP SCH (07:00)
[2022-09-29] MEDS: Ipratropium/Albuterol 3 ML NEB NEB SCH ×2 (07:05→13:22)
[2022-09-29 07:54] VITALS: TEMP 97.6
[2022-09-29 08:40] LABS: Anion Gap 19 mmol/L (10-20); BUN (Urea Nitrogen) 40 mg/dL (9.8-20.1); Calc. Creatinine Clearance 28 mL/min (70-130); Carbon Dioxide 27 mmol/L (23-31); Chloride 97 mmol/L (98-107); Estimated GFR 27; Glucose 107 mg/dL (83-110); Potassium 3.5 mmol/L (3.5-5.1); Sodium 139 mmol/L (136-145)
[2022-09-29] MEDS ORDERED: Amiodarone 200 MG TAB PO SCH (09:00)
[2022-09-29] MEDS: Empagliflozin 10 MG TAB PO SCH (09:30)
[2022-09-29] MEDS: Heparin 5,000 UNITS/ML VIAL SC SCH (09:30)
[2022-09-29] MEDS: Aspirin Chewable 81 MG TAB PO SCH (09:30)
[2022-09-29] MEDS: Polyethylene Glycol 3350 17 GM Packet PO SCH (09:30)
[2022-09-29] MEDS ORDERED: Potassium Chloride 20 MEQ TAB PO SCH ×3 (09:30→17:00)
[2022-09-30 13:00] LABS: Actual Bicarbonate (HCO3a) 22.9 mEq/L (22-28); Analyzer IN Cardio OR; Base Excess (BEa) -1.5 mEq/L (-2.0 to +3.0); CO2 Tension 36.5 mmHg (35.0-45.0); Calcium, Ionized (arterial) 1.01 mmol/L (1.12-1.30); Carboxyhemoglobin (COHb) 0.4 gm% (0.0-3.0); Hematocrit-ABG 23 % (36.0-47.0); Hemoglobin (Hb) 7.8 g/dL (12.0-16.0); O2 Tension (PaO2), arterial 349.9 mmHg (> 70.0); Potassium - ABG Lab 3.18 mmol/L (3.70-5.30); pH, Arterial 7.415 (7.35-7.45)
[2022-09-30 13:00] LABS: Actual Bicarbonate (HCO3a) 24.5 mEq/L (22-28); Analyzer IN Cardio OR; Base Excess (BEa) -1.8 mEq/L (-2.0 to +3.0); CO2 Tension 48.1 mmHg (35.0-45.0); Calcium, Ionized (arterial) 1.06 mmol/L (1.12-1.30); Carboxyhemoglobin (COHb) 0.4 gm% (0.0-3.0); Hematocrit-ABG 34 % (36.0-47.0); Hemoglobin (Hb) 11.7 g/dL (12.0-16.0); pH, Arterial 7.324 (7.35-7.45)
[2022-09-30 13:01] LABS: Actual Bicarbonate (HCO3v) 24.1 mEq/L (22-28); Analyzer IN Cardio OR; Base Excess 0.2 mEq/L (-2.0 to +3.0); Calcium, Ionized (venous) 0.99 mmol/L (1.16-1.32); Chloride (VBG) 101 mmol/L (98-106); Hematocrit-VBG 25 % (36.0-47.0); Hemoglobin (Hb) 8.4 g/dL (11.7-16.1); Potassium (VBG) 3.62 mmol/L (3.70-5.30); Sodium 133.3 mmol/L (133-146); pH (venous) 7.442 (7.32-7.43)
[2022-09-30 13:01] LABS: Actual Bicarbonate (HCO3a) 26.2 mEq/L (22-28); Analyzer IN Cardio OR; Base Excess (BEa) 2.6 mEq/L (-2.0 to +3.0); CO2 Tension 35.2 mmHg (35.0-45.0); Calcium, Ionized (arterial) 0.97 mmol/L (1.12-1.30); Carboxyhemoglobin (COHb) 0.7 gm% (0.0-3.0); Hematocrit-ABG 18 % (36.0-47.0); Hemoglobin (Hb) 6.2 g/dL (12.0-16.0); O2 Tension (PaO2), arterial 439.2 mmHg (> 70.0); Potassium - ABG Lab 3.45 mmol/L (3.70-5.30); pH, Arterial 7.489 (7.35-7.45)
[2022-09-30 13:01] LABS: Actual Bicarbonate (HCO3a) 22.4 mEq/L (22-28); Analyzer IN Cardio OR; Base Excess (BEa) -0.8 mEq/L (-2.0 to +3.0); Calcium, Ionized (arterial) 1.04 mmol/L (1.12-1.30); Carboxyhemoglobin (COHb) 0.3 gm% (0.0-3.0); Hematocrit-ABG 26 % (36.0-47.0); O2 Tension (PaO2), arterial 415.7 mmHg (> 70.0); Potassium - ABG Lab 3.46 mmol/L (3.70-5.30); pH, Arterial 7.476 (7.35-7.45)
[2022-09-30 13:02] LABS: Actual Bicarbonate (HCO3v) 24.8 mEq/L (22-28); Analyzer IN Cardio OR; Base Excess -0.8 mEq/L (-2.0 to +3.0); Calcium, Ionized (venous) 1.07 mmol/L (1.16-1.32); Chloride (VBG) 101 mmol/L (98-106); Hematocrit-VBG 26 % (36.0-47.0); Hemoglobin (Hb) 8.9 g/dL (11.7-16.1); Potassium (VBG) 2.75 mmol/L (3.70-5.30); Sodium 135.2 mmol/L (133-146); pH (venous) 7.354 (7.32-7.43)
[2022-09-30 13:02] LABS: Actual Bicarbonate (HCO3v) 26.9 mEq/L (22-28); Analyzer IN Cardio OR; Base Excess 0.6 mEq/L (-2.0 to +3.0); Chloride (VBG) 98 mmol/L (98-106); Hematocrit-VBG 29 % (36.0-47.0); Hemoglobin (Hb) 9.9 g/dL (11.7-16.1); Potassium (VBG) 2.91 mmol/L (3.70-5.30); Sodium 133.8 mmol/L (133-146); pH (venous) 7.337 (7.32-7.43)
[2022-09-30 13:03] LABS: Puncture Site Arterial Line
[2022-09-30 13:03] LABS: Puncture Site Arterial Line
[2022-09-30 13:04] LABS: Puncture Site Arterial Line
[2022-09-30 13:05] LABS: Potassium - ABG Lab 2.63 mmol/L (3.70-5.30); Puncture Site Arterial Line
== END 2022-09-29 15:35 | disposition hospice, home (50) | DRG 981 ==
LOC: ERS 10:59 → 2NO 14:00 → SJJU 09-05 13:19 → 2NO 09-16 14:42 → CCU 09-17 06:08 → IMCU/EMU 09-27 12:39
PROVIDERS: ADMIT Thoracic Surgery (Cardiothoracic Vascular Surgery); ATTEND Specialist
PROC: 02100Z9 Bypass Coronary Artery, One Artery from Left Internal Mammary, Open Approach (ICD-10-PCS; principal; 2022-09-17)
PROC: 021109W Bypass Coronary Artery, Two Arteries from Aorta with Autologous Venous Tissue, Open Approach (ICD-10-PCS; 2022-09-17)
PROC: 06BP3ZZ Excision of Right Saphenous Vein, Percutaneous Approach (ICD-10-PCS; 2022-09-17)
PROC: 5A1221Z Performance of Cardiac Output, Continuous (ICD-10-PCS; 2022-09-17)
PROC: 30233N1 Transfusion of Nonautologous Red Blood Cells into Peripheral Vein, Percutaneous Approach (ICD-10-PCS; 2022-09-17)
PROC: 02L70CK Occlusion of Left Atrial Appendage with Extraluminal Device, Open Approach (ICD-10-PCS; 2022-09-17)
PROC: 04HY32Z Insertion of Monitoring Device into Lower Artery, Percutaneous Approach (ICD-10-PCS; 2022-09-17)
PROC: 3E033XZ Introduction of Vasopressor into Peripheral Vein, Percutaneous Approach (ICD-10-PCS; 2022-09-17)
PROC: 5A09357 Assistance with Respiratory Ventilation, Less than 24 Consecutive Hours, Continuous Positive Airway Pressure (ICD-10-PCS; 2022-09-25)
DX: S82.852A Displaced trimalleolar fracture of left lower leg, initial encounter for closed fracture (principal); G93.41 Metabolic encephalopathy; I50.43 Acute on chronic combined systolic (congestive) and diastolic (congestive) heart failure; Z66 Do not resuscitate; Z51.5 Encounter for palliative care; J96.01 Acute respiratory failure with hypoxia; N18.4 Chronic kidney disease, stage 4 (severe); I24.8 Other forms of acute ischemic heart disease; N17.9 Acute kidney failure, unspecified; I42.8 Other cardiomyopathies; I13.0 Hypertensive heart and chronic kidney disease with heart failure and stage 1 through stage 4 chronic kidney disease, or unspecified chronic kidney disease; E78.5 Hyperlipidemia, unspecified; E11.22 Type 2 diabetes mellitus with diabetic chronic kidney disease; D63.1 Anemia in chronic kidney disease; E11.51 Type 2 diabetes mellitus with diabetic peripheral angiopathy without gangrene; Z96.642 Presence of left artificial hip joint; W17.89XA Other fall from one level to another, initial encounter; I48.0 Paroxysmal atrial fibrillation; J44.9 Chronic obstructive pulmonary disease, unspecified; I08.1 Rheumatic disorders of both mitral and tricuspid valves; F32.A Depression, unspecified; Z78.1 Physical restraint status; Z98.890 Other specified postprocedural states; Z95.828 Presence of other vascular implants and grafts; Z95.5 Presence of coronary angioplasty implant and graft; I25.2 Old myocardial infarction; Z79.899 Other long term (current) drug therapy; Z79.02 Long term (current) use of antithrombotics/antiplatelets; Z79.82 Long term (current) use of aspirin; Z90.710 Acquired absence of both cervix and uterus; Z87.440 Personal history of urinary (tract) infections
CPT/HCPCS: 29515; 36415; 36416; 36430; 51701; 71045; 80048; 81015; 82553; 82805; 83735; 83880; 84100; 84484; 85025; 85610; 85730; 86850; 86900; 86901; 87040; 87086; 93005; 93010; 93306; 94002; 94003; 94660; 96374; 96375; C1713; C1751; C1769; C1776; J0171; J0282; J0360; J1250; J1265; J1642; J1644; J1815; J1940; J2001; J2060; J2150; J2250; J2260; J2270; J2272; J2405; J2440; J2720; J3010; J3370; J3475; J3480; J3490; J7050; J7070; J7120; J7620; J7999; P9016; P9045; P9047; S0017; S0028